=== PATIENT | female | born 1940 | race Caucasian/White ===

== ENCOUNTER 2017-02-12 11:55 | Emergency (ER) | payer OTHER ==
[~2017-02-12] VITALS: Ht 154.9 cm; Wt 81.2 kg
[~2017-02-12 11:55] MED LIST: ASPI-435; CLX/20; GLCSR25; LORA-554 PO; METF750T PO; MULT-506 PO; NAPR1TAB9 PO; VALS160T58 PO
[2017-02-12 11:57] VITALS: TEMP 36.9; Ht 154.9 cm; Wt 81.2 kg
--- NOTE | 2017-02-12 12:52 | DIAGNOSTIC IMAGING REPORT ---
LEFT FOREARM 2 VIEWS CLINICAL HISTORY: Left arm injury. Fall. FINDINGS: AP and crosstable lateral views of the left forearm are obtained. No prior studies are available for comparison at the time of dictation. There is a horizontally oriented fracture through the distal ulnar diaphysis with apex radial angulation and overlying soft tissue edema. No additional fracture is seen. The distal radius appears intact. Mild arthritic change is noted in the wrist. The elbow joint is grossly intact as visualized. IMPRESSION: There is a horizontally oriented and angulated fracture through the distal ulnar shaft with overlying soft tissue edema. Electronically signed by: Toby Wnyne M.D. 02/12/2017 12:51 PM Dictated Date/Time: 02/12/2017 12:49 PM
[2017-02-12] MEDS ORDERED: DIPHTHERIA/TETANUS/PERTUSSIS 0.5 ML SYR/VIAL IM. ONE (13:00)
--- NOTE | 2017-02-12 13:18 | DIAGNOSTIC IMAGING REPORT ---
L TIBIA/FIBULA 2 VIEWS ROUTINE CLINICAL HISTORY: Left lower leg pain status post trauma COMPARISON: Knee x-rays dated 11/26/2014 DISCUSSION: There are mild osteoarthritic changes involving the knee. No acute fractures are visualized. There is calcaneal spurring. IMPRESSION: No fractures identified. Electronically signed by: Srinivas Juares M.D. 02/12/2017 1:17 PM Dictated Date/Time: 02/12/2017 1:16 PM
--- NOTE | 2017-02-12 14:04 | EMERGENCY ROOM VISIT NOTE ---
History First contact with patient: 12:31 Chief Complaint: ARM PAIN Stated Complaint: FELL, LEFT ARM INJURY/PAIN History of Present Illness The patient is a 76 year old female who presents to the Emergency Room via private vehicle accompanied by male with complaints of "fell, left arm injury/ pain". The patient states that earlier today, she was staining wood, and when she got up she went to reach for the door handle, and the door went one way, and the rug that she was standing on with the other way. This caused her to fall towards the wall, and she struck her left arm off of the wall as well as her left knee. She notes a small abrasion to the left ankle. At this time she' ll he complains of left arm pain, and points to the mid shaft of the left forearm as a location of pain that she rates as a 7/10. She denies loss of consciousness. Her tetanus is not up-to-date. Review of Systems A complete 6-point Review of Systems was discussed with the patient, with pertinent positives and negatives listed in the History of Present Illness. All remaining Review of Systems questions can be considered negative unless otherwise specified. Past Medical/Surgical History Medical Problems: (1) Diabetes Family History Diabetes mellitus Social History Smoking Status: Never Smoker Marital Status: Housing Status: lives with family Occupation Status: retired Current/Historical Medications Scheduled Aspirin (Aspirin 81), 81 MG QAM Citalopram (Citalopram Hydrobromide), 20 MG QAM Glipizide (Glipizide ER), 2.5 MG QAM Loratadine (Allergy Relief), 10 MG PO QAM Metformin Hcl (Glucophage Er), 750 MG PO QAM Multivitamin (Multivitamin), 1 TAB PO QAM Valsartan/Hctz (Diovan Hct 160MG/12.5MG), 1 TAB PO QAM Scheduled PRN Naproxen (Aleve), 220 MG PO Q12 PRN for Pain Physical Exam Vital Signs Date Time Temp Pulse Resp B/P (MAP) Pulse Ox O2 Delivery O2 Flow Rate FiO2 02/12/17 14:23 80 20 201/88 95 02/12/17 14:13 83 20 184/126 Room Air 02/12/17 11:57 36.9 92 16 193/94 96 Room Air Physical Exam VITAL SIGNS - Vital signs and nursing notes were reviewed. Stable. Hypertensive. GENERAL -76-year-old female appearing her stated age who is in no acute distress. Communicates well with provider and answers questions appropriately. SKIN - Without rashes. Small abrasion over the left lateral malleolus. Minimal tenderness in this region. HEAD - NC/AT. No garcia signs or raccoons eyes. EYES - PERRL with EOMI bilaterally. Sclera anicteric. No hyphema. EARS - No deformities of external structures noted on gross examination bilaterally. No blood from ear canals. NOSE - Midline and without cyanosis. No epistaxis or purulent drainage noted. MOUTH/OROPHARYNX - Without perioral cyanosis. NECK - Neck with FROM. No C-spine tenderness. EXTREMITIES - No clubbing or peripheral cyanosis. No pretibial edema present. She is neurovascularly intact in the extremity. There is tenderness to palpation overlying the left mid shaft of the forearm, as well as the left lateral malleolus. Other extremities are unremarkable to examination. +5/5 strength noted in UE/LE bilaterally. Medical Decision & Procedures ER Provider Diagnostic Interpretation: LEFT FOREARM 2 VIEWS CLINICAL HISTORY: Left arm injury. Fall. FINDINGS: AP and crosstable lateral views of the left forearm are obtained. No prior studies are available for comparison at the time of dictation. There is a horizontally oriented fracture through the distal ulnar diaphysis with apex radial angulation and overlying soft tissue edema. No additional fracture is seen. The distal radius appears intact. Mild arthritic change is noted in the wrist. The elbow joint is grossly intact as visualized. IMPRESSION: There is a horizontally oriented and angulated fracture through the distal ulnar shaft with overlying soft tissue edema. Electronically signed by: Toby Wynne M.D. 02/12/2017 12:51 PM Dictated Date/Time: 02/12/2017 12:49 PM L TIBIA/FIBULA 2 VIEWS ROUTINE CLINICAL HISTORY: Left lower leg pain status post trauma COMPARISON: Knee x-rays dated 11/26/2014 DISCUSSION: There are mild osteoarthritic changes involving the knee. No acute fractures are visualized. There is calcaneal spurring. IMPRESSION: No fractures identified. Electronically signed by: Srinivas Juares M.D. 02/12/2017 1:17 PM Dictated Date/Time: 02/12/2017 1:16 PM Medications Administered Medications (Trade) Dose Ordered Sig/Max Route Start Time Stop Time Status Last Admin Dose Admin Diphtheria/ Pertussis/Tetanus Vacc (Adacel Inj) 0.5 ml ONCE ONCE IM. 02/12/17 13:00 02/12/17 13:01 DC 02/12/17 13:05 0.5 ML Medical Decision Patient was seen and evaluated as above. She declined pain medication. Radiographs were obtained of the left forearm and left tibia and fibula. Fracture is noted of the left ulna. Unremarkable radiographic assessment of the left lower extremity in regard to fracture. She'll be splint with Ortho- Glass splint, and the case was discussed with the attending physician. She is to follow-up with orthopedics. She appears stable for outpatient management. She unfortunately was unable to take her blood pressure medication this morning secondary to her injury therefore coming here instead. I suspect that her high blood pressure is likely situational secondary to her fracture, as well as not taking the medication this morning. She is aware of the elevated blood pressure , but denies any symptoms that would be concerning with this blood pressure being elevated. She is to follow with her family doctor. She is to resume her medication. She was educated upon management, was given a sling for comfort, had questions answered prior to discharge, and was discharged home in good condition. She was also educated upon worrisome symptoms which to return. The abrasion overlying the left lateral malleolus was cleansed with normal saline, dried with sterile gauze and a sterile bacitracin dressing was applied. In the evaluation and treatment of this patient following differential diagnoses were entertained: Forearm fracture, sprain, left ankle fracture, sprain, contusion, abrasions, ulcers. Impression Primary Impression: Arm pain, left Additional Impression: Ulnar fracture Departure Information Dispostion Home / Self-Care Condition GOOD Referrals Guanakito Burgos M.D. (PCP) Reyes Ovalle MD Patient Instructions My [facility] Additional Instructions You have been treated in the Emergency Department for arm/Wrist Pain. For pain control, you can use the following cect-xmr-hekeomz medicines (if >12 yo): - Regular strength (325mg/tab) Tylenol (acetaminophen) 2 tabs every 4-6 hours as needed. Do not exceed 12 tablets in a 24 hour period. Avoid taking more than 3 grams (3000 mg) of Tylenol per day. This includes any other sources of acetaminophen you may take on a regular basis. If this is a recent injury (<24 hrs), ice can be applied to the area of pain for the first 3 days to help decrease pain and inflammation. You have been provided the number for an Orthopaedic Surgeon. You should call this number as soon as possible to establish a follow-up visit from today's Emergency Department visit. Keep the brace/splint in place until evaluated by Orthopedics. You may wear the arm sling for comfort. Please be cautious to remove this from the sling periodically throughout the day to exercise the shoulder. Return to the Emergency Department if your current symptoms worsen despite treatment course outlined above, or if you develop any of the following symptoms : intractable pain despite aforementioned treatment course or new onset of numbness or tingling of the fingers. Please return with any new/concerning symptoms. Problem Qualifiers
[2017-02-12 14:23] VITALS: BP 201/88; PULSE 80; O2SAT 95
[2017-02-17] MEDS ORDERED: ZTHM250 PO (17:43)
== END 2017-02-12 14:25 | disposition home or self-care (01) ==
LOC: C.EDB 11:57 → C.EDD 14:25
DX: S52.202A Unspecified fracture of shaft of left ulna, initial encounter for closed fracture (principal); S90.512A Abrasion, left ankle, initial encounter; W19.XXXA Unspecified fall, initial encounter; E11.9 Type 2 diabetes mellitus without complications; Z83.3 Family history of diabetes mellitus; Z79.82 Long term (current) use of aspirin; Z79.899 Other long term (current) drug therapy

== ENCOUNTER 2017-02-16 07:21 | Inpatient (IN) | payer OTHER ==
[~2017-02-16] VITALS: Ht 154.9 cm; Wt 83.6 kg
[2017-02-16] VITALS (7 sets, daily range): BP systolic 141–160; BP diastolic 46–78; PULSE 83–89; TEMP 36.8–37; O2SAT 92–98; Ht 154.9 cm; Wt 83.6 kg
[2017-02-16] MEDS ORDERED: SODIUM CHLORIDE 0.9% 1000ML 1,000 ML IV STA (07:35)
[2017-02-16 07:54] LABS: BASO % 0.2 %; BASO ABS # 0.02 K/uL (0-0.2); COMPLETE YES; EOS % 2.2 %; HEMATOCRIT 43.8 % (37-47); IG% 0.4 %; LYMPH % 19.1 %; LYMPH ABS # 1.92 K/uL (1.2-3.4); MEAN CELL VOLUME 92.8 fL (80-100); MEAN CORPUSCULAR HEMOGLOBIN 32.6 pg (25-34); MEAN CORPUSCULAR HGB CONC 35.2 g/dl (32-36); MEAN PLATELET VOLUME 11.6 fL (7.4-10.4); NEUT % 73.1 %; PLATELET COUNT 164 K/uL (130-400); RED BLOOD COUNT 4.72 M/uL (4.2-5.4); WHITE BLOOD COUNT 10.04 K/uL (4.8-10.8)
[2017-02-16 08:05] LABS: PARTIAL THROMBOPLASTIN RATIO 0.9; PROTHROMBIN TIME (PATIENT) 10.8 SECONDS (9.0-12.0)
--- NOTE | 2017-02-16 08:06 | DIAGNOSTIC IMAGING REPORT ---
CHEST ONE VIEW PORTABLE HISTORY: Headache, weakness, fall, palpitations COMPARISON: Chest 04/06/2016. FINDINGS: The lungs are clear. Cardiac silhouette is normal in size. No pleural effusions. No pneumothorax. IMPRESSION: No acute process. Electronically signed by: Robert Blount M.D. 02/16/2017 8:05 AM Dictated Date/Time: 02/16/2017 8:01 AM
[2017-02-16 08:30] LABS: ALKALINE PHOSPHATASE 101 U/L (45-117); ALT/SGPT 43 U/L (12-78); BLOOD UREA NITROGEN 22 mg/dl (7-18); BUN/CREATININE RATIO 21.7 (10-20); CALCIUM 9.8 mg/dl (8.5-10.1); CARBON DIOXIDE 31 mmol/L (21-32); CHLORIDE 97 mmol/L (98-107); CKMB/CK RATIO 1.4 (0-3.0); GLUCOSE 264 mg/dl (70-99)
[2017-02-16 08:34] LABS: POTASSIUM 3.6 mmol/L (3.5-5.1); SODIUM 137 mmol/L (136-145)
[2017-02-16 08:38] LABS: AST/SGOT 20 U/L (15-37); MAGNESIUM 1.5 mg/dl (1.8-2.4)
--- NOTE | 2017-02-16 08:54 | DIAGNOSTIC IMAGING REPORT ---
HEAD WITHOUT CONTRAST (CT) CLINICAL HISTORY: 76 years-old Female presenting with headache. TECHNIQUE: Multidetector CT imaging of the head was performed without the use of intravenous contrast. IV contrast: None. A dose lowering technique was used consistent with the principles of ALARA (as low as reasonably achievable). COMPARISON: 04/06/2016. CT DOSE (mGy.cm): The estimated cumulative dose is 537.48 mGy.cm. FINDINGS: [facility] A[facility] topogram: Unremarkable. Ventricles and sulci normal in size. Periventricular and subcortical white matter hypoattenuation, nonspecific but likely indicative of chronic small vessel ischemic change. Old lacunar infarcts in the basal ganglia, which are more apparent on the current exam. No mass effect or midline shift. No hemorrhage or acute territorial infarct. No extra-axial fluid collection. Paranasal sinuses and mastoid air cells clear. Calvarium intact. IMPRESSION: 1. No acute intracranial pathology. 2. Chronic small vessel ischemic change and suspected old lacunar infarcts in the basal ganglia. Electronically signed by: Supa Vallejo M.D. 02/16/2017 8:52 AM Dictated Date/Time: 02/16/2017 8:50 AM
[2017-02-16 10:10] LABS: URINE APPEARANCE CLEAR (CLEAR); URINE BILIRUBIN NEG (NEG); URINE COLOR YELLOW; URINE NITRITE NEG (NEG); URINE SPECIFIC GRAVITY 1.026 (1.000-1.030); UROBILINOGEN NEG (NEG)
[2017-02-16 10:13] LABS: MANUAL MICROSCOPIC REQUIRED? NO; REVIEW REQ? NO
[2017-02-16] MEDS ORDERED: OPTIRAY 320 IV PRN (10:15)
--- NOTE | 2017-02-16 10:52 | DIAGNOSTIC IMAGING REPORT ---
(CHEST FOR PE) ANGIO WITH CT DOSE: 469.84 mGy.cm HISTORY: 76 years-old Female presents with acute hypoxia. Concern for possible pulmonary embolus. TECHNIQUE: Multiple CTA images of the chest were obtained after the intravenous administration of 82 ml Optiray 320. Coronal and sagittal MIPS were obtained from the axial data set and were submitted for review. A dose lowering technique was utilized adhering to the principles of ALARA. COMPARISON: Chest radiograph of same day. FINDINGS: CTA: Heart is upper limits of normal in size without pericardial effusion. Coronary arterial calcifications are present. No aortic dissection or aneurysm identified. There is moderate atherosclerotic plaquing of the thoracic aorta, notably at the origin of the left subclavian artery. No definite high-grade stenosis identified. The pulmonary arterial tree is well-opacified to the level of the proximal subsegmental branches. Evaluation is somewhat limited secondary to respiratory motion. No filling defects are seen to suggest pulmonary thromboembolic disease. CT CHEST: No dominant thyroid nodule identified. No pathologic adenopathy identified. Linear subsegmental opacities of the bilateral upper and lower lobes most compatible with atelectasis. There is no pneumothorax, pleural effusion or lobar airspace consolidation. There is mild bilateral bronchial wall thickening with areas of was a continuation suggesting some air trapping. No suspicious pulmonary nodules are identified. Imaged upper abdominal structures demonstrate no acute abdomen. Nonspecific 6 mm subcutaneous nodule seen within the central chest cleavages area seen on image 71 of series 4. Bones appear intact. IMPRESSION: 1. No acute aortic pathology or evidence of pulmonary thromboembolic disease. 2. Scattered areas of mosaic attenuation with bronchial wall thickening and subsegmental linear pleural-based opacities are present suggesting mild bronchitis with air trapping and atelectasis. No lobar airspace consolidation to suggest pneumonia. 3. 6 mm subcutaneous nodule of the central chest cleavage area could be further evaluated with mammogram and suggests sebaceous cyst. The above report was generated using voice recognition software. It may contain grammatical, syntax or spelling errors. Electronically signed by: Gage Serrano M.D. 02/16/2017 10:51 AM Dictated Date/Time: 02/16/2017 10:44 AM
[2017-02-16] MEDS ORDERED: CEFTRIAXONE SOD INJ 1 GM ADDVIAL IV STA (11:34)
[2017-02-16] MEDS ORDERED: METFTAB PO (12:28)
[2017-02-16] MEDS ORDERED: CLR10 PO (12:28)
[2017-02-16] MEDS ORDERED: GLUCAGON FOR INJ 1 MG VIAL SQ PRN (12:30)
[2017-02-16] MEDS ORDERED: GLUCOSE 40% GEL 15 GM TUBE PO PRN (12:30)
[2017-02-16] MEDS ORDERED: GLUCOSE 10 TABS/TUBE PO PRN (12:30)
[2017-02-16] MEDS ORDERED: DEXTROSE 50% 50 ML SYR IV PRN (12:30)
[2017-02-16] MEDS ORDERED: ACETAMINOPHEN 325 MG TAB PO PRN (12:30)
[2017-02-16] MEDS ORDERED: ONDANSETRON INJ 2 MG/ML 2 ML VIAL IV PRN (12:30)
[2017-02-16] MEDS: SODIUM CHLORIDE 0.9% 1000ML 1,000 ML IV SCH (13:38)
--- NOTE | 2017-02-16 13:38 | History and Physical ---
History & Physical Date & Time of Service: Feb 16, 2017 at 13:31 Chief Complaint: Bronchitis, Hypoxia Primary Care Physician: Guanakito Burgos M.D. History of Present Illness Source: patient This is a 76yo female with a PMH of DM II, HTN and other medical problems listed below who presents with intermittent facial and head pain over the past 2 weeks. Describes pain as dull and pounding, especially behind both eyes, forehead and bottom teeth. Also endorses URI symptoms such as rhinorrhea, congestion and fatigue. Over the past few days, patient started to experience SOB and "breathing too fast" when walking around the house. Endorses allergies, for which she takes Claritin. Denies any history of asthma, COPD, CHF. Never a smoker. Does not use home oxygen. In ER, patient was hypoxic to 82% on room air. Is not saturating in the high 90s on 3L NC. Denies fever, chills, lightheadedness, sore throat, CP, abd pain, nausea/vomiting, calf pain or LE swelling. Denies any sick contacts. Past Medical/Surgical History Medical Problems: (1) Depression Status: Chronic (2) Diabetes Status: Chronic (3) Diabetic peripheral neuropathy Status: Chronic (4) Hypertension Status: Chronic Family History Diabetes mellitus Social History Smoking Status: Never Smoker Marital Status: Housing status: lives with family Occupational Status: retired Allergies Coded Allergies: Sulfa Antibiotics (Verified Allergy, Mild, RASH, 02/16/17) Home Medications Scheduled Aspirin (Aspirin 81), 81 MG QAM Citalopram (Citalopram Hydrobromide), 20 MG QAM Glipizide (Glipizide ER), 2.5 MG QAM Loratadine (Claritin), 10 MG PO DAILY Metformin Ext Rel (Glucophage Ext Rel), 1 TAB PO DAILY Multivitamin (Multivitamin), 1 TAB PO QAM Valsartan/Hctz (Diovan Hct 160MG/12.5MG), 1 TAB PO QAM Scheduled PRN Naproxen (Aleve), 220 MG PO Q12 PRN for Pain Review of Systems Ten systems reviewed and negative except as noted in the HPI. Physical Exam Vital Signs Date Time Temp Pulse Resp B/P (MAP) Pulse Ox O2 Delivery O2 Flow Rate FiO2 02/16/17 13:26 36.8 86 20 160/78 (105) 96 Nasal Cannula 3.0 02/16/17 12:51 36.9 87 14 166/85 92 02/16/17 12:22 87 14 166/85 92 Nasal Cannula 3.0 02/16/17 12:12 90 02/16/17 11:29 90 14 161/89 93 Nasal Cannula 3.0 02/16/17 10:35 97 18 159/83 96 Nasal Cannula 3.0 02/16/17 09:41 80 16 135/88 94 Nasal Cannula 2.0 02/16/17 08:57 83 16 159/92 96 Nasal Cannula 3.0 02/16/17 08:07 85 20 159/92 94 Nasal Cannula 2.0 02/16/17 07:51 97 02/16/17 07:40 82 Room Air 02/16/17 07:39 96 Room Air 02/16/17 07:39 96 Room Air 02/16/17 07:28 36.9 102 20 168/77 97 Room Air General Appearance: WD/WN, no apparent distress (resting comfortably with NC oxygen in place) Head: normocephalic, atraumatic Eyes: normal inspection, PERRL, sclerae normal ENT: hearing grossly normal, pharynx normal, + nasal congestion Neck: supple, no adenopathy, thyroid normal, trachea midline Respiratory/Chest: chest non-tender, normal breath sounds, no respiratory distress, no accessory muscle use, + pertinent finding (Coarse breath sounds in R lower lobe. Otherwise clear to auscultation) Cardiovascular: regular rate, rhythm, no murmur Abdomen/GI: normal bowel sounds, non tender, soft, no organomegaly Back: normal inspection Extremities/Musculoskelatal: normal inspection, no calf tenderness, normal capillary refill, no pedal edema, + pertinent finding (L arm cast observed ) Neurologic/Psych: no motor/sensory deficits, alert, normal mood/affect, oriented x 3 Skin: normal color, warm/dry, no rash Lymphatic: no adenopathy Diagnostics Laboratory Results Results Past 24 Hours Test 02/16/17 07:42 02/16/17 09:50 Range/Units White Blood Count 10.04 4.8-10.8 K/uL Red Blood Count 4.72 4.2-5.4 M/uL Hemoglobin 15.4 12.0-16.0 g/dL Hematocrit 43.8 37-47 % Mean Corpuscular Volume 92.8 80-100 fL Mean Corpuscular Hemoglobin 32.6 25-34 pg Mean Corpuscular Hemoglobin Concent 35.2 32-36 g/dl Platelet Count 164 130-400 K/uL Mean Platelet Volume 11.6 7.4-10.4 fL Neutrophils (%) (Auto) 73.1 % Lymphocytes (%) (Auto) 19.1 % Monocytes (%) (Auto) 5.0 % Eosinophils (%) (Auto) 2.2 % Basophils (%) (Auto) 0.2 % Neutrophils # (Auto) 7.34 1.4-6.5 K/uL Lymphocytes # (Auto) 1.92 1.2-3.4 K/uL Monocytes # (Auto) 0.50 0.11-0.59 K/uL Eosinophils # (Auto) 0.22 0-0.5 K/uL Basophils # (Auto) 0.02 0-0.2 K/uL RDW Standard Deviation 41.7 36.4-46.3 fL RDW Coefficient of Variation 12.2 11.5-14.5 % Immature Granulocyte % (Auto) 0.4 % Immature Granulocyte # (Auto) 0.04 0.00-0.02 K/uL Prothrombin Time 10.8 9.0-12.0 SECONDS Prothromb Time International Ratio 1.0 0.9-1.1 Activated Partial Thromboplast Time 24.3 21.0-31.0 SECONDS Partial Thromboplastin Ratio 0.9 Sodium Level 137 136-145 mmol/L Potassium Level 3.6 3.5-5.1 mmol/L Chloride Level 97 98-107 mmol/L Carbon Dioxide Level 31 21-32 mmol/L Anion Gap 9.0 3-11 mmol/L Blood Urea Nitrogen 22 7-18 mg/dl Creatinine 1.00 0.60-1.20 mg/dl Est Creatinine Clear Calc Drug Dose 45.3 ml/min Estimated GFR () 62.9 Estimated GFR (Non- 54.3 BUN/Creatinine Ratio 21.7 10-20 Random Glucose 264 70-99 mg/dl Calcium Level 9.8 8.5-10.1 mg/dl Magnesium Level 1.5 1.8-2.4 mg/dl Total Bilirubin 0.5 0.2-1 mg/dl Direct Bilirubin 0.2 0-0.2 mg/dl Aspartate Amino Transf (AST/SGOT) 20 15-37 U/L Alanine Aminotransferase (ALT/SGPT) 43 12-78 U/L Alkaline Phosphatase 101 45-117 U/L Total Creatine Kinase 56 26-192 U/L Creatine Kinase MB 0.8 0.5-3.6 ng/ml Creatine Kinase MB Ratio 1.4 0-3.0 Troponin I < 0.015 0-0.045 ng/ml Pro-B-Type Natriuretic Peptide 128 0-1800 pg/ml Total Protein 7.2 6.4-8.2 gm/dl Albumin 3.6 3.4-5.0 gm/dl Thyroid Stimulating Hormone (TSH) 2.690 0.300-4.500 uIu/ml Urine Color YELLOW Urine Appearance CLEAR CLEAR Urine pH 5.0 4.5-7.5 Urine Specific Twining 1.026 1.000-1.030 Urine Protein NEG NEG Urine Glucose (UA) 3+ NEG Urine Ketones NEG NEG Urine Occult Blood NEG NEG Urine Nitrite NEG NEG Urine Bilirubin NEG NEG Urine Urobilinogen NEG NEG Urine Leukocyte Esterase NEG NEG Microbiology Results 02/16/17 Blood Culture, Ordered Pending 02/16/17 Blood Culture, Ordered Pending Diagnostic Radiology Chest/thorax CTA: IMPRESSION: 1. No acute aortic pathology or evidence of pulmonary thromboembolic disease. 2. Scattered areas of mosaic attenuation with bronchial wall thickening and subsegmental linear pleural-based opacities are present suggesting mild bronchitis with air trapping and atelectasis. No lobar airspace consolidation to suggest pneumonia. 3. 6 mm subcutaneous nodule of the central chest cleavage area could be further evaluated with mammogram and suggests sebaceous cyst. CXR normal Normal EKG Impression Assessment and Plan This is a 76yo female with a PMH of DM II, HTN and other medical problems listed below who presents with intermittent facial and head pain over the past 2 weeks. Hypoxia 2/2 bronchitis/possible PNA: -SOB, recorded to be hypoxic to 82% -Considered PNA but no leukocytosis, no evidence on CXR -CTA is negative for thromboembolism, so not PE -CXR without pleural effusion, BNP is normal. Unlikely CHF -Order echo to assess for wall motion abnormalities, new murmur -CTA with mild bronchitis with air trapping and atelectasis -Treat for community acquired PNA empirically -Blood and sputum cultures pending -Nebs, oxygen, maintenance fluids Hypomagnesemia: -Mg low at 1.5 -Replaced with 2g -Recheck labs in AM DM II: -Hgb a1c of 8.1 (01/08) -Held oral agents -SSI while in-patient -BG checks AC HS HTN: -Continue home dose valsartan-HCTZ Depression: -Continue home dose Celexa DVT Ppx: Lovenox Code status: FULL PCP: Loretta Dispo: Plan to return home once medically stable Attending Physician Addendum I have seen and examined this patient with JUAN DANIEL Galaviz and I agree with her assessment and plan. This is a 76 year well appearing patient whose main complaints on ED presentation was headache with negative head CT found to be hypoxic with CTA negative for pulmonary embolism. CT with findings suggestive of air trapping in patient without significant history of cardiac respiratory history. Possible symptoms of head congestion with hypoxia suggestive of upper respiratory disease. Will empirically treat with antibiotics but likely can be de-escalated base on clinical improvement. F/u cultures including obtaining sputum and flu swab. Send for cardiac echo to rule out valvular disease for hypoxia. Replete electrolytes and manage for history of diabetes. Physical Exam General: no acute distress Head/Neck: normal range of motion, no pain on head flexion Eyes: EOMI Lungs: good air entry, no wheezing or crackles Heart: regular rate, no appreciable murmurs Abdomen: soft, nontender Legs: no edema Level of Care Med/Surg Resuscitation Status FULL RESUSCITATION VTE Prophylaxis VTE Risk Assessment Done? Y/N: Yes Risk Level: Moderate Given or contraindicated: Enoxaparin (Lovenox)SQ
[2017-02-16] MEDS: MAGNESIUM SULFATE 1GM / D5W 1 GM in PREMIXED IN D5W 100 ML IV SCH ×2 (13:39→15:02)
[2017-02-16] MEDS: AZITHROMYCIN 250 MG TAB PO SCH (13:57)
[2017-02-16] MEDS: ALBUT/IPRATROP 3MG/0.5MG NEB 3 ML VIAL INH SCH ×2 (14:21→18:50)
--- NOTE | 2017-02-16 15:12 | EMERGENCY ROOM VISIT NOTE ---
History Report prepared by Anna: Carol Bob Under the Supervision of: Dr. Praful Ortega M.D. First contact with patient: 07:34 Chief Complaint: CARDIAC ASSESSMENT Stated Complaint: SEVERE HEADACHE,SINUS PAIN-WHOLE FACE,GLANDS History of Present Illness The patient is a 76 year old female who presents to the Emergency Room with complaints of intermittent pounding head pain over the past two weeks. She currently rates her discomfort as a 2/10 in severity. The patient states that over the past two weeks she has felt strange, noting that she feels as if something bad is going to happen to her. She states reports a pounding pain in her frontal head that radiates down to her jaw. The patient states that she had this several years ago when she found out that she had to have her gallbladder removed. She reports pain and numbness around her nose and discomfort around her eyes and the back of her teeth. The patient reports a cough that causes chest pain and back pain. She additionally states that she has had a runny nose, stating that she has been blowing her nose often. The patient states that these symptoms have worsened since she had a fall on fracturing her arm. She states that she is allergic to cats, but states that she has two cats for the past several years. The patient denies any history of smoking. Pt denies LOC, fevers, chills, diaphoresis, visual changes, neck pain, breathing difficulties, nausea, vomiting, abdominal pain, melena, hematochezia, urinary symptoms, numbness, weakness, lymphadenopathy, rash, or other complaints. Source of History: patient Onset: past two weeks Position: head Symptom Intensity: 2/10 Quality: other (pounding) Timing: intermittent Associated Symptoms: + cough, + chest pain, + back pain Note: Associated Symptoms: runny nose, discomfort around her eyes and back of teeth, pain and numbness around nose, jaw pain Review of Systems See HPI for pertinent positives and negatives. A total of ten systems were reviewed and were otherwise negative. Past Medical & Surgical Medical Problems: (1) Bronchitis (2) Diabetes (3) Hypoxia Family History Diabetes mellitus Social History Smoking Status: Never Smoker Marital Status: Housing Status: lives with family Occupation Status: retired Current/Historical Medications Scheduled Aspirin (Aspirin 81), 81 MG QAM Citalopram (Citalopram Hydrobromide), 20 MG QAM Glipizide (Glipizide ER), 2.5 MG QAM Loratadine (Claritin), 10 MG PO DAILY Metformin Ext Rel (Glucophage Ext Rel), 1 TAB PO DAILY Multivitamin (Multivitamin), 1 TAB PO QAM Valsartan/Hctz (Diovan Hct 160MG/12.5MG), 1 TAB PO QAM Scheduled PRN Naproxen (Aleve), 220 MG PO Q12 PRN for Pain Allergies Coded Allergies: Sulfa Antibiotics (Verified Allergy, Mild, RASH, 02/16/17) Physical Exam Vital Signs Date Time Temp Pulse Resp B/P (MAP) Pulse Ox O2 Delivery O2 Flow Rate FiO2 02/16/17 12:12 90 02/16/17 11:29 90 14 161/89 93 Nasal Cannula 3.0 02/16/17 10:35 97 18 159/83 96 Nasal Cannula 3.0 02/16/17 09:41 80 16 135/88 94 Nasal Cannula 2.0 02/16/17 08:57 83 16 159/92 96 Nasal Cannula 3.0 02/16/17 08:07 85 20 159/92 94 Nasal Cannula 2.0 02/16/17 07:51 97 02/16/17 07:40 82 Room Air 02/16/17 07:39 96 Room Air 02/16/17 07:39 96 Room Air 02/16/17 07:28 36.9 102 20 168/77 97 Room Air Physical Exam GENERAL: Awake, alert, well-appearing, in no distress HENT: Maxillary tenderness bilaterally, tenderness along the jaw, no tenderness along the temporal artery bilaterally. Oropharynx unremarkable. EYES: Normal conjunctiva. Sclera non-icteric. NECK: Supple. No nuchal rigidity. FROM. No JVD. RESPIRATORY: Clear to auscultation. CARDIAC: Regular rate, normal rhythm. Extremities warm and well perfused. Pulses equal. ABDOMEN: Soft, non-distended. No tenderness to palpation. No rebound or guarding. No masses. RECTAL: Deferred. MUSCULOSKELETAL: Chest examination reveals no tenderness. The back is symmetrical on inspection without obvious abnormality. There is no CVA tenderness to palpation. No joint edema. LOWER EXTREMITIES: Calves are equal size bilaterally and non-tender. No edema. No discoloration. NEURO: Normal sensorium. No sensory or motor deficits noted. SKIN: No rash or jaundice noted. Medical Decision & Procedures ER Provider Diagnostic Interpretation: Radiology results as stated below per my review and radiologist interpretation: CHEST ONE VIEW PORTABLE HISTORY: Headache, weakness, fall, palpitations COMPARISON: Chest 04/06/2016. FINDINGS: The lungs are clear. Cardiac silhouette is normal in size. No pleural effusions. No pneumothorax. IMPRESSION: No acute process. Electronically signed by: Robert Blount M.D. 02/16/2017 8:05 AM Dictated Date/Time: 02/16/2017 8:01 AM HEAD WITHOUT CONTRAST (CT) CLINICAL HISTORY: 76 years-old Female presenting with headache. TECHNIQUE: Multidetector CT imaging of the head was performed without the use of intravenous contrast. IV contrast: None. A dose lowering technique was used consistent with the principles of ALARA (as low as reasonably achievable). COMPARISON: 04/06/2016. CT DOSE (mGy.cm): The estimated cumulative dose is 537.48 mGy.cm. FINDINGS: Insulation Board Head Saw Operator topogram: Unremarkable. Ventricles and sulci normal in size. Periventricular and subcortical white matter hypoattenuation, nonspecific but likely indicative of chronic small vessel ischemic change. Old lacunar infarcts in the basal ganglia, which are more apparent on the current exam. No mass effect or midline shift. No hemorrhage or acute territorial infarct. No extra-axial fluid collection. Paranasal sinuses and mastoid air cells clear. Calvarium intact. IMPRESSION: 1. No acute intracranial pathology. 2. Chronic small vessel ischemic change and suspected old lacunar infarcts in the basal ganglia. Electronically signed by: Supa Vallejo M.D. 02/16/2017 8:52 AM Dictated Date/Time: 02/16/2017 8:50 AM (CHEST FOR PE) ANGIO WITH CT DOSE: 469.84 mGy.cm HISTORY: 76 years-old Female presents with acute hypoxia. Concern for possible pulmonary embolus. TECHNIQUE: Multiple CTA images of the chest were obtained after the intravenous administration of 82 ml Optiray 320. Coronal and sagittal MIPS were obtained from the axial data set and were submitted for review. A dose lowering technique was utilized adhering to the principles of ALARA. COMPARISON: Chest radiograph of same day. FINDINGS: CTA: Heart is upper limits of normal in size without pericardial effusion. Coronary arterial calcifications are present. No aortic dissection or aneurysm identified. There is moderate atherosclerotic plaquing of the thoracic aorta, notably at the origin of the left subclavian artery. No definite high-grade stenosis identified. The pulmonary arterial tree is well-opacified to the level of the proximal subsegmental branches. Evaluation is somewhat limited secondary to respiratory motion. No filling defects are seen to suggest pulmonary thromboembolic disease. CT CHEST: No dominant thyroid nodule identified. No pathologic adenopathy identified. Linear subsegmental opacities of the bilateral upper and lower lobes most compatible with atelectasis. There is no pneumothorax, pleural effusion or lobar airspace consolidation. There is mild bilateral bronchial wall thickening with areas of was a continuation suggesting some air trapping. No suspicious pulmonary nodules are identified. Imaged upper abdominal structures demonstrate no acute abdomen. Nonspecific 6 mm subcutaneous nodule seen within the central chest cleavages area seen on image 71 of series 4. Bones appear intact. IMPRESSION: 1. No acute aortic pathology or evidence of pulmonary thromboembolic disease. 2. Scattered areas of mosaic attenuation with bronchial wall thickening and subsegmental linear pleural-based opacities are present suggesting mild bronchitis with air trapping and atelectasis. No lobar airspace consolidation to suggest pneumonia. 3. 6 mm subcutaneous nodule of the central chest cleavage area could be further evaluated with mammogram and suggests sebaceous cyst. The above report was generated using voice recognition software. It may contain grammatical, syntax or spelling errors. Electronically signed by: Gage Serrano M.D. 02/16/2017 10:51 AM Dictated Date/Time: 02/16/2017 10:44 AM Laboratory Results 02/16/17 07:42 Red Blood Count 4.72, Mean Corpuscular Volume 92.8, Mean Corpuscular Hemoglobin 32.6, Mean Corpuscular Hemoglobin Concent 35.2, Mean Platelet Volume 11.6, Neutrophils (%) (Auto) 73.1, Lymphocytes (%) (Auto) 19.1, Monocytes (%) (Auto) 5.0, Eosinophils (%) (Auto) 2.2, Basophils (%) (Auto) 0.2, Neutrophils # (Auto) 7.34, Lymphocytes # (Auto) 1.92, Monocytes # (Auto) 0.50, Eosinophils # (Auto) 0.22, Basophils # (Auto) 0.02 02/16/17 07:42 Test 02/16/17 07:42 02/16/17 09:50 White Blood Count 10.04 K/uL (4.8-10.8) Red Blood Count 4.72 M/uL (4.2-5.4) Hemoglobin 15.4 g/dL (12.0-16.0) Hematocrit 43.8 % (37-47) Mean Corpuscular Volume 92.8 fL (80-100) Mean Corpuscular Hemoglobin 32.6 pg (25-34) Mean Corpuscular Hemoglobin Concent 35.2 g/dl (32-36) Platelet Count 164 K/uL (130-400) Mean Platelet Volume 11.6 fL (7.4-10.4) Neutrophils (%) (Auto) 73.1 % Lymphocytes (%) (Auto) 19.1 % Monocytes (%) (Auto) 5.0 % Eosinophils (%) (Auto) 2.2 % Basophils (%) (Auto) 0.2 % Neutrophils # (Auto) 7.34 K/uL (1.4-6.5) Lymphocytes # (Auto) 1.92 K/uL (1.2-3.4) Monocytes # (Auto) 0.50 K/uL (0.11-0.59) Eosinophils # (Auto) 0.22 K/uL (0-0.5) Basophils # (Auto) 0.02 K/uL (0-0.2) RDW Standard Deviation 41.7 fL (36.4-46.3) RDW Coefficient of Variation 12.2 % (11.5-14.5) Immature Granulocyte % (Auto) 0.4 % Immature Granulocyte # (Auto) 0.04 K/uL (0.00-0.02) Prothrombin Time 10.8 SECONDS (9.0-12.0) Prothromb Time International Ratio 1.0 (0.9-1.1) Activated Partial Thromboplast Time 24.3 SECONDS (21.0-31.0) Partial Thromboplastin Ratio 0.9 Anion Gap 9.0 mmol/L (3-11) Est Creatinine Clear Calc Drug Dose 45.3 ml/min Estimated GFR () 62.9 Estimated GFR (Non- 54.3 BUN/Creatinine Ratio 21.7 (10-20) Calcium Level 9.8 mg/dl (8.5-10.1) Magnesium Level 1.5 mg/dl (1.8-2.4) Total Bilirubin 0.5 mg/dl (0.2-1) Direct Bilirubin 0.2 mg/dl (0-0.2) Aspartate Amino Transf (AST/SGOT) 20 U/L (15-37) Alanine Aminotransferase (ALT/SGPT) 43 U/L (12-78) Alkaline Phosphatase 101 U/L (45-117) Total Creatine Kinase 56 U/L (26-192) Creatine Kinase MB 0.8 ng/ml (0.5-3.6) Creatine Kinase MB Ratio 1.4 (0-3.0) Troponin I < 0.015 ng/ml (0-0.045) Pro-B-Type Natriuretic Peptide 128 pg/ml (0-1800) Total Protein 7.2 gm/dl (6.4-8.2) Albumin 3.6 gm/dl (3.4-5.0) Thyroid Stimulating Hormone (TSH) 2.690 uIu/ml (0.300-4.500) Urine Color YELLOW Urine Appearance CLEAR (CLEAR) Urine pH 5.0 (4.5-7.5) Urine Specific Blossom 1.026 (1.000-1.030) Urine Protein NEG (NEG) Urine Glucose (UA) 3+ (NEG) Urine Ketones NEG (NEG) Urine Occult Blood NEG (NEG) Urine Nitrite NEG (NEG) Urine Bilirubin NEG (NEG) Urine Urobilinogen NEG (NEG) Urine Leukocyte Esterase NEG (NEG) Laboratory results reviewed by me Medications Administered Medications (Trade) Dose Ordered Sig/Max Route Start Time Stop Time Status Last Admin Dose Admin Sodium Chloride 1,000 ml @ 125 mls/hr Q8H STAT IV 02/16/17 07:35 02/16/17 13:26 DC 02/16/17 08:06 125 MLS/HR Ceftriaxone Sodium (Rocephin Inj) 1 gm NOW STAT IV 02/16/17 11:34 02/16/17 11:35 DC 02/16/17 11:48 1 GM ECG Indication: chest pain Rate (beats per minute): 94 Rhythm: normal sinus Findings: no acute ischemic change, no ectopy ED Course 0735: Ordered Sodium Chloride 1000 ml @ 125 mls/hr IV. 0742: The patient was evaluated in room A3. A complete history and physical exam was performed by the medical student. 0831: The patient was evaluated in room A3. A complete history and physical exam was performed. 1051: I reevaluated the patient and she is resting. 1134: Ordered Rocephin Inj 1 gm IV. 1137: I discussed the patients case with Coco Neal PA-C. She is going to evaluate the patient for further treatment. 1140: I reevaluated the patient and she is doing well. I discussed the exam findings with her and I discussed the treatment plan. She verbalized complete understanding and agreement. She is going to be evaluated for further treatment. Medical Decision Triage Nursing notes reviewed. The patient's presentation and history were concerning for malaise and congestion. Etiologies such as metabolic, infection, hypo/hyperglycemia, electrolyte abnormalities, cardiac sources, intracerebral event, toxicologic, neurologic, as well as others were entertained. The patient was evaluated. She was hydrated. Physical examination was performed. She was nonfocal. She was just generally washed out. ECG was nonischemic. Chest x-ray performed and was unremarkable. The patient's blood work was unremarkable as well. The patient was noted to have hypoxia. The exact etiology is not obvious. CT scan of the head did not reveal any obvious pathology. CT PE study was performed due to the hypoxia and malaise and this showed some atelectasis air trapping and bronchitis-like issues. The patient does not she has had increased cough. She was given a dose of IV Rocephin. Consultation was made with internal medicine. The patient and family were updated and educated. I discussed further evaluation and management in the hospital and they were in agreement. I discussed the case with the [facility] hospitalist service. The patient was evaluated in the Emergency Room for further management. Medication Reconcilliation Current Medication List: was personally reviewed by me Blood Pressure Screening Patient's blood pressure: Elevated blood pressure Further evaluation by the hospitalist. Consults Time Called: 1130 Consulting Physician: Coco Neal PA-C Returned Call: 1137 I discussed the patients case with Coco Neal PA-C. She is going to evaluate the patient for further treatment. Impression Primary Impression: Hypoxia Additional Impressions: Bronchitis Malaise Scribe Attestation The scribe's documentation has been prepared under my direction and personally reviewed by me in its entirety. I confirm that the note above accurately reflects all work, treatment, procedures, and medical decision making performed by me. Departure Information Dispostion Being Evaluated By Hospitalist Guanakito Garcia M.D. (PCP) Problem Qualifiers
[2017-02-16] MEDS ORDERED: INFLUENZA ADMINISTRATION CHARGE ONE (18:00)
[2017-02-16] MEDS ORDERED: INFLUENZA VACCINE HIGH DOSE 65+ 0.5 ML SYR IM. ONE (18:00)
[2017-02-16] MEDS: INSULIN ASPART 100 UNITS/ML 3 ML PEN SC SCH ×2 (18:56→21:00)
[2017-02-16] MEDS ORDERED: ENOXAPARIN 40 MG/0.4 ML SYR SC SCH (21:00)
[2017-02-17] VITALS (8 sets, daily range): BP systolic 148–175; BP diastolic 74–86; PULSE 59–87; TEMP 36.5–36.8; O2SAT 92–98
[2017-02-17] MEDS: SODIUM CHLORIDE 0.9% 1000ML 1,000 ML IV SCH (01:36)
[2017-02-17 06:28] LABS: HEMATOCRIT 45.5 % (37-47); MEAN CORPUSCULAR HEMOGLOBIN 30.8 pg (25-34); MEAN CORPUSCULAR HGB CONC 32.7 g/dl (32-36); MEAN PLATELET VOLUME 11.5 fL (7.4-10.4); PLATELET COUNT 162 K/uL (130-400); RED BLOOD COUNT 4.84 M/uL (4.2-5.4); WHITE BLOOD COUNT 8.07 K/uL (4.8-10.8)
[2017-02-17 07:07] LABS: CALCIUM 9.1 mg/dl (8.5-10.1); CREATININE 0.8 mg/dl (0.60-1.20); MAGNESIUM 1.7 mg/dl (1.8-2.4); POTASSIUM 3.5 mmol/L (3.5-5.1)
[2017-02-17] MEDS: ALBUT/IPRATROP 3MG/0.5MG NEB 3 ML VIAL INH SCH ×2 (07:15→14:44)
[2017-02-17] MEDS: AZITHROMYCIN 250 MG TAB PO SCH (07:54)
[2017-02-17] MEDS ORDERED: PERFLUTREN LIPID MICROSPHERE (DEFINITY) IV ONE (08:38)
[2017-02-17] MEDS: INSULIN ASPART 100 UNITS/ML 3 ML PEN SC SCH ×2 (08:48→12:49)
[2017-02-17] MEDS ORDERED: HYDROCHLOROTHIAZIDE 25 MG TAB PO SCH (09:00)
[2017-02-17] MEDS ORDERED: ASPIRIN 81 MG ECTAB PO SCH (09:00)
[2017-02-17] MEDS ORDERED: METFORMIN HCL 500 MG TABCR PO SCH (09:00)
[2017-02-17] MEDS ORDERED: VALSARTAN 80 MG TAB PO SCH (09:00)
[2017-02-17] MEDS ORDERED: CITALOPRAM 20 MG TAB PO SCH (09:00)
[2017-02-17] MEDS ORDERED: LORATADINE 10 MG TAB PO SCH (09:00)
[2017-02-17] MEDS ORDERED: MAGNESIUM SULFATE 1GM / D5W 1 GM in PREMIXED IN D5W 100 ML IV SCH (09:30)
[2017-02-17] MEDS ORDERED: CEFTRIAXONE SOD INJ 1 GM in DEXTROSE 5% ADD-VANTAGE 50ML 50 ML IV SCH (12:00)
--- NOTE | 2017-02-17 16:26 | Progress Note ---
Medicine Progress Note Date & Time of Visit: Feb 17, 2017 at 16:08. Subjective Pt was seen and examined Sitting in bed with friend at bed sign. Pt said that she feels much better today she said that the pain at the back of her head and around her eyes and forehead improved she has been on RA saturates well since yesterday Denies any chest pain, palpitation, dizziness and SOB Objective Last 8 Hrs Date Time Temp Pulse Resp B/P (MAP) Pulse Ox O2 Delivery O2 Flow Rate FiO2 02/17/17 15:00 36.7 85 16 167/75 (105) 98 Room Air 02/17/17 14:44 79 16 93 Room Air 02/17/17 11:37 36.8 87 16 168/80 (109) 92 Physical Exam: General- No acute distress Head- atraumatic Eyes- PERRL, EOMI ENT- oropharynx clear Neck- supple, no JVD Lungs- No wheezing, no crackles Heart- regular rhythm Abdomen- normal bowel sounds, soft Extremities- no calf tenderness Neuro- alert, oriented x 3; PERRL, EOMI Skin- warm & dry Laboratory Results: Last 24 Hours Test 02/16/17 16:40 02/16/17 20:40 02/17/17 06:02 02/17/17 08:41 Bedside Glucose 239 mg/dl 88 mg/dl 232 mg/dl White Blood Count 8.07 K/uL Red Blood Count 4.84 M/uL Hemoglobin 14.9 g/dL Hematocrit 45.5 % Mean Corpuscular Volume 94.0 fL Mean Corpuscular Hemoglobin 30.8 pg Mean Corpuscular Hemoglobin Concent 32.7 g/dl RDW Standard Deviation 42.2 fL RDW Coefficient of Variation 12.4 % Platelet Count 162 K/uL Mean Platelet Volume 11.5 fL Sodium Level 138 mmol/L Potassium Level 3.5 mmol/L Chloride Level 98 mmol/L Carbon Dioxide Level 33 mmol/L Anion Gap 7.0 mmol/L Blood Urea Nitrogen 14 mg/dl Creatinine 0.80 mg/dl Est Creatinine Clear Calc Drug Dose 57.7 ml/min Estimated GFR () 82.4 Estimated GFR (Non- 71.1 BUN/Creatinine Ratio 18.0 Random Glucose 194 mg/dl Calcium Level 9.1 mg/dl Magnesium Level 1.7 mg/dl Test 02/17/17 11:23 02/17/17 13:25 Bedside Glucose 201 mg/dl Influenza Type A Antigen Neg for Influ A Influenza Type B Antigen Neg for Influ B Assessment & Plan Hypoxia Mostly related to bronchitis -2 saturation on admission was 82% -Considered PNA but no leukocytosis, no evidence on CXR -CXR was negative -CTA chest showed no evidence for PE. Scattered areas of mosaic attenuation with bronchial wall thickening and subsegmental linear pleural-based opacities are present suggesting mild bronchitis with air trapping and atelectasis. - No leukocytosis, afebrile - Saturated well on RA - D/C Rocephin - will continue PO Zithromax for the bronchitis - Will schedule follow up with PCP on Thursday Echo Showed * Ejection Fraction = 60-65%. * The left ventricular wall motion is normal. * Grade I diastolic dysfunction, (abnormal relaxation pattern). * No significant valvular pathology. Hypomagnesemia: -Mg 1.7 -Mg Replaced - Continue monitor mg DM II: -Hgb a1c of 8.1 (01/08) -Held oral agents -SSI while in-patient - Counseling pt to follow a healthy DM HTN: -Continue home dose valsartan-HCTZ Stable Depression: -Continue home dose Celexa DVT Ppx: Lovenox Code status: FULL Disposition Follow up with Dr. Lindsey ( Dr. Acosta's partner) on 02/20 @ 12:45 pm Current Inpatient Medications: Current Inpatient Medications Medications (Trade) Dose Ordered Sig/Max Route Start Time Stop Time Status Last Admin Dose Admin Ioversol (Optiray 320) 100 ml UD PRN IV 02/16/17 10:15 02/20/17 10:14 Enoxaparin Sodium (Lovenox Inj) 40 mg Q24H SC 02/16/17 21:00 03/18/17 12:29 02/16/17 21:13 40 MG Acetaminophen (Tylenol Tab) 650 mg Q4H PRN PO 02/16/17 12:30 03/18/17 12:29 Ondansetron HCl (Zofran Inj) 4 mg Q6H PRN IV 02/16/17 12:30 03/18/17 12:29 Insulin Aspart (novoLOG ASPART) SLIDING SCALE If C... ACHS SC 02/16/17 16:30 03/18/17 16:29 02/17/17 12:49 4 UNITS Glucose (Glucose 40% Gel) 15-30 GRAMS 15 GRAMS... UD PRN PO 02/16/17 12:30 03/18/17 12:29 Glucose (Glucose Chew Tab) 4-8 Tablets 4 Tabl... UD PRN PO 02/16/17 12:30 03/18/17 12:29 Dextrose (Dextrose 50% 50ML Syringe) 25-50ML OF 50% DW IV FOR... UD PRN IV 02/16/17 12:30 03/18/17 12:29 Glucagon (Glucagon Inj) 1 mg UD PRN SQ 02/16/17 12:30 03/18/17 12:29 Aspirin (Ecotrin Tab) 81 mg QAM PO 02/17/17 09:00 03/19/17 08:59 02/17/17 07:54 81 MG Citalopram Hydrobromide (celeXA TAB) 20 mg QAM PO 02/17/17 09:00 03/19/17 08:59 02/17/17 07:54 20 MG Loratadine (Claritin Tab) 10 mg DAILY PO 02/17/17 09:00 03/19/17 08:59 02/17/17 07:54 10 MG Valsartan (Diovan Tab) 160 mg QAM PO 02/17/17 09:00 03/19/17 08:59 02/17/17 07:55 160 MG Miscellaneous Information (Order Awaiting Action) 1 ea QS N/A 02/16/17 16:00 03/18/17 15:59 Sodium Chloride 1,000 ml @ 75 mls/hr [id number] IV 02/16/17 12:45 03/18/17 12:44 02/17/17 01:36 75 MLS/HR Albuterol/ Ipratropium (Duoneb) 3 ml [id number] INH 02/16/17 15:00 03/18/17 14:59 02/17/17 14:44 3 ML Ceftriaxone Sodium 1 gm/ Dextrose 50 ml @ 100 mls/hr DAILY@1200 IV 02/17/17 12:00 02/22/17 12:29 02/17/17 11:34 100 MLS/HR Azithromycin (Zithromax Tab) 500 mg DAILY PO 02/16/17 14:00 02/23/17 13:59 02/17/17 07:54 500 MG Hydrochlorothiazide (Hydrochlorothiazide Tab) 12.5 mg QAM PO 02/17/17 09:00 03/19/17 08:59 02/17/17 07:55 12.5 MG
--- NOTE | 2017-02-17 17:15 | ECHOCARDIOGRAM REPORT ---
*NOTICE TO RECEIVING DEMOCRAT AGENCY This information is strictly Confidential and protected under [place] law. [place] law prohibits you from making any further disclosure of this information unless further disclosure is expressly permitted by the written consent of the person to whom it pertains or is authorized by law. A general authorization for the release of medical or other information is not sufficient for this purpose. Hospital accepts no responsibility if the information is made available to any other person, INCLUDING THE PATIENT. Interpretation Summary * Name: ASHKAN AGUDELO Study Date: 02/17/2017 07:05 AM BP: 175/86 mmHg * Patient Location: [facility]\S\N287\S\1 HR: 80 * : 1940 (M/d/yyy) Gender: Female Height: 61 in * Age: 76 yrs Ethnicity: CA Weight: 177 lb * Ordering Physician: Violeta Galaviz * Referring Physician: Self, Referred * Performed By: Tory Traore RDCS * * Reason For Study: Shortness of breath * BSA: 1.8 m2 * The study was technically adequate. * There is no comparison study available. * -- Conclusions -- * Ejection Fraction = 60-65%. * The left ventricular wall motion is normal. * Grade I diastolic dysfunction, (abnormal relaxation pattern). * No significant valvular pathology. Procedure Details * A complete two-dimensional transthoracic echocardiogram was performed (2D, M-mode, Doppler and color flow Doppler). * A contrast injection of Definity was performed to improve assessment of LV function. * Contrast was injected into an intravenous site in the right arm. * One vial of Definity ultrasound contrast was diluted in normal saline to a total volume of 10 ml. A total of '2' ml of solution was administered during imaging. * Lot # [id number] of Definity utilized for procedure. * Expiration date MAR 11. * The attending nurse who injected the contrast agent was Liz Wilson RN. Left Ventricle * The left ventricle is normal in size. * There is normal left ventricular wall thickness. * Ejection Fraction = 60-65%. * Left ventricular systolic function is normal. * The left ventricular wall motion is normal. Right Ventricle * The right ventricle is normal size. * The right ventricular systolic function is normal as assessed by tricuspid annular plane systolic excursion (TAPSE) (normal >1.5 cm). Atria * The left atrial size is normal. * Right atrial size is normal. * There is no evidence of atrial septal defect, but resolution does not allow assessment for a patent foramen ovale. Mitral Valve * There is moderate mitral annular calcification. * There is no mitral valve stenosis. * Significant mitral regurgitation is absent. Tricuspid Valve * The tricuspid valve is normal. * There is no tricuspid stenosis. * Significant tricuspid regurgitation is absent. Aortic Valve * The aortic valve is not well visualized. * The aortic valve opens well. * Aortic stenosis is absent. * There is no significant aortic regurgitation. Pulmonic Valve * The pulmonary valve is not well seen, but the Doppler examination is normal without significant regurgitation or stenosis. Great Vessels * The aortic root is normal size. Pericardium/Pleural * There is no pericardial effusion. Great Vessels * Normal inferior vena cava diameter and respiratory variation suggests normal central venous pressure. Left Ventricular Diastolic Function * Grade I diastolic dysfunction, (abnormal relaxation pattern). MMode 2D Measurements and Calculations IVSd 1.2 cm LVIDd 2.6 cm LVIDs 1.8 cm LVPWd 1.1 cm IVS/LVPW 1.1 FS 31.1 % EDV(Teich) 25.0 ml ESV(Teich) 9.7 ml EF(Teich) 61.0 % EDV(cubed) 17.9 ml ESV(cubed) 5.8 ml EF(cubed) 67.3 % LV mass(C)d 87.4 grams LV mass(C)dI 48.7 grams/m\S\2 CO(Teich) 1.4 l/min CI(Teich) 0.78 l/min/m\S\2 SV(Teich) 15.2 ml SI(Teich) 8.5 ml/m\S\2 CO(cubed) 1.1 l/min CI(cubed) 0.62 l/min/m\S\2 SV(cubed) 12.1 ml SI(cubed) 6.7 ml/m\S\2 Ao root diam 2.7 cm Ao root area 5.8 cm\S\2 ACS 1.6 cm LA dimension 2.2 cm asc Aorta Diam 3.1 cm LA/Ao 0.81 LVOT diam 2.0 cm LVOT area 3.0 cm\S\2 LVAd ap4 23.5 cm\S\2 LVLd ap4 6.7 cm EDV(MOD-sp4) 66.9 ml LVAs ap4 11.5 cm\S\2 LVLs ap4 5.2 cm ESV(MOD-sp4) 22.3 ml EF(MOD-sp4) 66.7 % LVAd ap2 18.3 cm\S\2 LVLd ap2 6.0 cm EDV(MOD-sp2) 45.0 ml LVAs ap2 10.9 cm\S\2 LVLs ap2 5.2 cm ESV(MOD-sp2) 19.1 ml EF(MOD-sp2) 57.6 % CO(MOD-sp4) 4.1 l/min CI(MOD-sp4) 2.3 l/min/m\S\2 SV(MOD-sp4) 44.6 ml SI(MOD-sp4) 24.9 ml/m\S\2 CO(MOD-sp2) 2.4 l/min CI(MOD-sp2) 1.3 l/min/m\S\2 SV(MOD-sp2) 25.9 ml SI(MOD-sp2) 14.4 ml/m\S\2 Doppler Measurements and Calculations MV E max natalie 75.7 cm/sec MV A max natalie 107.2 cm/sec MV E/A 0.71 MV dec time 0.26 sec Ao V2 max 102.5 cm/sec Ao max PG 4.2 mmHg Ao max PG (full) 1.1 mmHg YOANA(V,A) 2.6 cm\S\2 YOANA(V,D) 2.6 cm\S\2 LV V1 max PG 3.2 mmHg LV V1 max 88.8 cm/sec PA V2 max 82.8 cm/sec PA max PG 2.7 mmHg PA acc slope 616.6 cm/sec\S\2 PA acc time 0.07 sec PI max natalie 184.6 cm/sec PI max PG 13.6 mmHg PI dec slope 195.5 cm/sec\S\2 PI P1/2t 276.6 msec TR max natalie 202.0 cm/sec PA pr(Accel) 45.7 mmHg
[2017-02-17] MEDS ORDERED: ZTHM250 PO (17:43)
--- NOTE | 2017-02-17 17:47 | Discharge Instructions ---
Discharge Instructions Date of Service Feb 17, 2017. Admission Reason for Admission: Bronchitis, Hypoxia Discharge Discharge Diagnosis / Problem: Bronchitis associated with hypoxia, Diabetes Discharge Goals Goal(s): Decrease discomfort, Increase independence, Improve disease control Activity Recommendations Activity Limitations: resume your previous activity (as tolerated) . Instructions / Follow-Up Instructions / Follow-Up Follow up with Dr. Lindsey ( Dr. Acosta's partner) on 02/20 @ 12:45 pm Follow up a healthy diabetes diet with low carb Limited concentrated sweet Complete antibiotic course Current Hospital Diet Patient's current hospital diet: Diabetes Type 2 Diet, Low Sodium Diet (2gm Na) Discharge Diet Recommended Diet: Low Sodium Diet (2gm Na), Diabetes Type 2 Diet Pending Studies Studies pending at discharge: yes List of pending studies: blood culture Medical Emergencies . Who to Call and When: Medical Emergencies: If at any time you feel your situation is an emergency, please call 911 immediately. . Non-Emergent Contact Non-Emergency issues call your: Primary Care Provider Call Non-Emergent contact if: you have any medication questions . . "Provider Documentation" section prepared by Rick Ochoa. . VTE Core Measure Inpt VTE Proph given/why not?: Enoxaparin (Lovenox)SQ
--- NOTE | 2017-02-19 20:22 | Discharge Summary ---
Discharge Summary Date of Service Feb 19, 2017. Discharge Summary Admission Date: Feb 16, 2017 at 12:21 Discharge Date: Feb 17, 2017 Discharge Disposition: Home Principal Diagnosis: Bronchitis associated with hypoxia Secondary Diagnoses/Problems: DM II HTN Depression Hypomagnesemia Procedures: [~ rep ct add3]] (CHEST FOR PE) ANGIO WITH CT DOSE: 469.84 mGy.cm HISTORY: 76 years-old Female presents with acute hypoxia. Concern for possible pulmonary embolus. TECHNIQUE: Multiple CTA images of the chest were obtained after the intravenous administration of 82 ml Optiray 320. Coronal and sagittal MIPS were obtained from the axial data set and were submitted for review. A dose lowering technique was utilized adhering to the principles of ALARA. COMPARISON: Chest radiograph of same day. FINDINGS: CTA: Heart is upper limits of normal in size without pericardial effusion. Coronary arterial calcifications are present. No aortic dissection or aneurysm identified. There is moderate atherosclerotic plaquing of the thoracic aorta, notably at the origin of the left subclavian artery. No definite high-grade stenosis identified. The pulmonary arterial tree is well-opacified to the level of the proximal subsegmental branches. Evaluation is somewhat limited secondary to respiratory motion. No filling defects are seen to suggest pulmonary thromboembolic disease. CT CHEST: No dominant thyroid nodule identified. No pathologic adenopathy identified. Linear subsegmental opacities of the bilateral upper and lower lobes most compatible with atelectasis. There is no pneumothorax, pleural effusion or lobar airspace consolidation. There is mild bilateral bronchial wall thickening with areas of was a continuation suggesting some air trapping. No suspicious pulmonary nodules are identified. Imaged upper abdominal structures demonstrate no acute abdomen. Nonspecific 6 mm subcutaneous nodule seen within the central chest cleavages area seen on image 71 of series 4. Bones appear intact. IMPRESSION: 1. No acute aortic pathology or evidence of pulmonary thromboembolic disease. 2. Scattered areas of mosaic attenuation with bronchial wall thickening and subsegmental linear pleural-based opacities are present suggesting mild bronchitis with air trapping and atelectasis. No lobar airspace consolidation to suggest pneumonia. 3. 6 mm subcutaneous nodule of the central chest cleavage area could be further evaluated with mammogram and suggests sebaceous cyst. The above report was generated using voice recognition software. It may contain grammatical, syntax or spelling errors. Electronically signed by: Gage Serrano M.D. 02/16/2017 10:51 AM Dictated Date/Time: 02/16/2017 10:44 AM HEAD WITHOUT CONTRAST (CT) CLINICAL HISTORY: 76 years-old Female presenting with headache. TECHNIQUE: Multidetector CT imaging of the head was performed without the use of intravenous contrast. IV contrast: None. A dose lowering technique was used consistent with the principles of ALARA (as low as reasonably achievable). COMPARISON: 04/06/2016. CT DOSE (mGy.cm): The estimated cumulative dose is 537.48 mGy.cm. FINDINGS: [employer] topogram: Unremarkable. Ventricles and sulci normal in size. Periventricular and subcortical white matter hypoattenuation, nonspecific but likely indicative of chronic small vessel ischemic change. Old lacunar infarcts in the basal ganglia, which are more apparent on the current exam. No mass effect or midline shift. No hemorrhage or acute territorial infarct. No extra-axial fluid collection. Paranasal sinuses and mastoid air cells clear. Calvarium intact. IMPRESSION: 1. No acute intracranial pathology. 2. Chronic small vessel ischemic change and suspected old lacunar infarcts in the basal ganglia. Electronically signed by: Supa Vallejo M.D. 02/16/2017 8:52 AM Dictated Date/Time: 02/16/2017 8:50 AM [~ rep ct add3]] CHEST ONE VIEW PORTABLE HISTORY: Headache, weakness, fall, palpitations COMPARISON: Chest 04/06/2016. FINDINGS: The lungs are clear. Cardiac silhouette is normal in size. No pleural effusions. No pneumothorax. IMPRESSION: No acute process. Electronically signed by: Robert Blount M.D. 02/16/2017 8:05 AM Dictated Date/Time: 02/16/2017 8:01 AM Interpretation Summary * Name: ASHKAN AGUDELO Study Date: 02/17/2017 07:05 AM BP: 175/86 mmHg * Patient Location: [facility]\\S\\N287\\S\\1 HR: 80 * : 1940 (M/d/yyyy) Gender: Female Height: 61 in * Age: 76 yrs Ethnicity: [place] Weight: 177 lb * Ordering Physician: Violeta Galaviz * Referring Physician: Self, Referred * Performed By: Tory Traore RDCS * * Reason For Study: Shortness of breath * BSA: 1.8 m2 * The study was technically adequate. * There is no comparison study available. * -- Conclusions -- * Ejection Fraction = 60-65%. * The left ventricular wall motion is normal. * Grade I diastolic dysfunction, (abnormal relaxation pattern). * No significant valvular pathology. Procedure Details * A complete two-dimensional transthoracic echocardiogram was performed (2D, M- mode, Doppler and color flow Doppler). * A contrast injection of Definity was performed to improve assessment of LV function. * Contrast was injected into an intravenous site in the right arm. * One vial of Definity ultrasound contrast was diluted in normal saline to a total volume of 10 ml. A total of '2' ml of solution was administered during imaging. * Lot # [id number] of Definity utilized for procedure. * Expiration date MAR 11. * The attending nurse who injected the contrast agent was Liz Wilson RN. Left Ventricle * The left ventricle is normal in size. * There is normal left ventricular wall thickness. * Ejection Fraction = 60-65%. * Left ventricular systolic function is normal. * The left ventricular wall motion is normal. Right Ventricle * The right ventricle is normal size. * The right ventricular systolic function is normal as assessed by tricuspid annular plane systolic excursion (TAPSE) (normal >1.5 cm). Atria * The left atrial size is normal. * Right atrial size is normal. * There is no evidence of atrial septal defect, but resolution does not allow assessment for a patent foramen ovale. Mitral Valve * There is moderate mitral annular calcification. * There is no mitral valve stenosis. * Significant mitral regurgitation is absent. Tricuspid Valve * The tricuspid valve is normal. * There is no tricuspid stenosis. * Significant tricuspid regurgitation is absent. Aortic Valve * The aortic valve is not well visualized. * The aortic valve opens well. * Aortic stenosis is absent. * There is no significant aortic regurgitation. Pulmonic Valve * The pulmonary valve is not well seen, but the Doppler examination is normal without significant regurgitation or stenosis. Great Vessels * The aortic root is normal size. Pericardium/Pleural * There is no pericardial effusion. Great Vessels * Normal inferior vena cava diameter and respiratory variation suggests normal central venous pressure. Left Ventricular Diastolic Function * Grade I diastolic dysfunction, (abnormal relaxation pattern). Medication Reconciliation New Medications: Azithromycin (Azithromycin) 250 Mg Tab 500 MG PO DAILY for 3 Days, #6 TAB Continued Medications: Aspirin (Aspirin 81) 81 Mg Tab 81 MG QAM Citalopram (Citalopram Hydrobromide) 20 Mg Tab 20 MG QAM Glipizide (Glipizide ER) 2.5 Mg Tabcr 2.5 MG QAM Loratadine (Claritin) 10 Mg Tab 10 MG PO DAILY, TAB Metformin Ext Rel (Glucophage Ext Rel) 500 Mg Tab 1 TAB PO DAILY for 90 Days, #90 TAB 3 Refills Multivitamin (Multivitamin) Tab 1 TAB PO QAM, TAB Naproxen (Aleve) 220 Mg Tab 220 MG PO Q12 PRN for Pain, TAB Valsartan/Hctz (Diovan Hct 160MG/12.5MG) 1 Tab Tab 1 TAB PO QAM Admission Information HPI (per Admitting provider): This is a 76yo female with a PMH of DM II, HTN and other medical problems listed below who presents with intermittent facial and head pain over the past 2 weeks. Describes pain as dull and pounding, especially behind both eyes, forehead and bottom teeth. Also endorses URI symptoms such as rhinorrhea, congestion and fatigue. Over the past few days, patient started to experience SOB and "breathing too fast" when walking around the house. Endorses allergies, for which she takes Claritin. Denies any history of asthma, COPD, CHF. Never a smoker. Does not use home oxygen. In ER, patient was hypoxic to 82% on room air. Is not saturating in the high 90s on 3L NC. Denies fever, chills, lightheadedness, sore throat, CP, abd pain, nausea/vomiting, calf pain or LE swelling. Denies any sick contacts. Physical Exam (per Admitting): General Appearance: WD/WN, no apparent distress (resting comfortably with NC oxygen in place) Head: normocephalic, atraumatic Eyes: normal inspection, PERRL, sclerae normal ENT: hearing grossly normal, pharynx normal, + nasal congestion Neck: supple, no adenopathy, thyroid normal, trachea midline Respiratory/Chest: chest non-tender, normal breath sounds, no respiratory distress, no accessory muscle use, + pertinent finding (Coarse breath sounds in R lower lobe. Otherwise clear to auscultation) Cardiovascular: regular rate, rhythm, no murmur Abdomen/GI: normal bowel sounds, non tender, soft, no organomegaly Back: normal inspection Extremities/Musculoskelatal: normal inspection, no calf tenderness, normal capillary refill, no pedal edema, + pertinent finding (L arm cast observed ) Neurologic/Psych: no motor/sensory deficits, alert, normal mood/affect, oriented x 3 Skin: normal color, warm/dry, no rash Lymphatic: no adenopathy Hospital Course Hypoxia Mostly related to bronchitis -2 saturation on admission was 82% -Considered PNA but no leukocytosis, no evidence on CXR -CXR was negative -CTA chest showed no evidence for PE. Scattered areas of mosaic attenuation with bronchial wall thickening and subsegmental linear pleural-based opacities are present suggesting mild bronchitis with air trapping and atelectasis. - No leukocytosis, afebrile - Saturated well on RA - D/C Rocephin - will continue PO Zithromax for the bronchitis - Will schedule follow up with PCP on Thursday Echo Showed * Ejection Fraction = 60-65%. * The left ventricular wall motion is normal. * Grade I diastolic dysfunction, (abnormal relaxation pattern). * No significant valvular pathology. Hypomagnesemia: -Mg 1.7 -Mg Replaced - Continue monitor mg DM II: -Hgb a1c of 8.1 (01/08) -Held oral agents -SSI while in-patient - Counseling pt to follow a healthy DM HTN: -Continue home dose valsartan-HCTZ Stable Depression: -Continue home dose Celexa DVT Ppx: Lovenox Code status: FULL Disposition Follow up with Dr. Lindsey ( Dr. Acosta's partner) on 02/20 @ 12:45 pm Total time spent on discharge = 35 minutes This includes examination of the patient, discharge planning, medication reconciliation, and communication with other providers. Discharge Instructions Discharge Instructions Date of Service Feb 17, 2017. Admission Reason for Admission: Bronchitis, Hypoxia Discharge Discharge Diagnosis / Problem: Bronchitis associated with hypoxia, Diabetes Discharge Goals Goal(s): Decrease discomfort, Increase independence, Improve disease control Activity Recommendations Activity Limitations: resume your previous activity (as tolerated) . Instructions / Follow-Up Instructions / Follow-Up Follow up with Dr. Lindsey ( Dr. Acosta's partner) on 02/20 @ 12:45 pm Follow up a healthy diabetes diet with low carb Limited concentrated sweet Complete antibiotic course Current Hospital Diet Patient's current hospital diet: Diabetes Type 2 Diet, Low Sodium Diet (2gm Na) Discharge Diet Recommended Diet: Low Sodium Diet (2gm Na), Diabetes Type 2 Diet Pending Studies Studies pending at discharge: yes List of pending studies: blood culture Medical Emergencies . Who to Call and When: Medical Emergencies: If at any time you feel your situation is an emergency, please call 911 immediately. . Non-Emergent Contact Non-Emergency issues call your: Primary Care Provider Call Non-Emergent contact if: you have any medication questions . . "Provider Documentation" section prepared by Rick Ochoa. . VTE Core Measure Inpt VTE Proph given/why not?: Enoxaparin (Lovenox)SQ Additional Copies To Shalonda Lindsey D.O., Brett, M.D.
== END 2017-02-17 18:16 | disposition home or self-care (01) | DRG 202 ==
LOC: C.EDB 07:21 → C.MED 12:21 → ENRESERV 12:35
PROVIDERS: ADMIT Hospitalist; ATTEND Internal Medicine
DX: J40 Bronchitis, not specified as acute or chronic (principal); J18.9 Pneumonia, unspecified organism; E83.42 Hypomagnesemia; E11.9 Type 2 diabetes mellitus without complications; F32.9 Major depressive disorder, single episode, unspecified; I10 Essential (primary) hypertension; Z79.82 Long term (current) use of aspirin; Z83.3 Family history of diabetes mellitus

== ENCOUNTER → 2017-02-23 | Outpatient (CLI) | payer OTHER ==
[~2017-02-23] MED LIST changes: +CLR10 PO; -LORA-554 PO; -METF750T PO; +METFTAB PO; +ZTHM250 PO
== END | disposition home or self-care (01) ==
LOC: C.RDSM 14:15
PROVIDERS: ATTEND Physical Medicine & Rehabilitation Sports Medicine
DX: Z09 Encounter for follow-up examination after completed treatment for conditions other than malignant neoplasm (principal)

== ENCOUNTER → 2017-03-18 | Outpatient (CLI) | payer OTHER | END | disposition home or self-care (01) | LOC: C.RDSM 08:30 | PROVIDERS: ATTEND Physical Medicine & Rehabilitation Sports Medicine | DX: S52.225D Nondisplaced transverse fracture of shaft of left ulna, subsequent encounter for closed fracture with routine healing (principal); X58.XXXD Exposure to other specified factors, subsequent encounter ==

== ENCOUNTER → 2017-04-14 | Outpatient (CLI) | payer OTHER ==
[~2017-04-14] MED LIST changes: +AZIT-57 PO; -ZTHM250 PO
== END | disposition home or self-care (01) ==
LOC: C.RDSM 13:40
PROVIDERS: ATTEND Physical Medicine & Rehabilitation Sports Medicine
DX: S52.225D Nondisplaced transverse fracture of shaft of left ulna, subsequent encounter for closed fracture with routine healing (principal); X58.XXXD Exposure to other specified factors, subsequent encounter

== ENCOUNTER 2020-05-20 10:27 | Inpatient (IN) ==
[2020-05-20] MEDS ORDERED: MECLIZINE HCL 25 MG TAB PO STA (11:14)
[2020-05-20] MEDS ORDERED: SODIUM CHLORIDE 0.9% 1000ML 1,000 ML IV ONE ×2 (11:14→12:34)
--- NOTE | 2020-05-20 11:47 | Emergency Department Note ---
Impression & Plan KATE (acute kidney injury), Diarrhea, Abdominal pain, Dizzy ED Provider Note NAME: ASHKAN AGUDELO AGE: 80 SEX: F : 1940 ARRIVES VIA: Walk-In INFORMANT: Patient ED PROVIDER(S): Dinesh Núñez DO CHIEF COMPLAINT: Abdominal pain and lightheadedness HPI: Patient is an 80-year-old female who presents the ER for not feeling well. She notes she has not felt well for at least the past week. She notes that about 4 to 5 days ago she started with periumbilical epigastric abdominal pain. Has been constant. She had 2 episodes of vomiting when it started. Last bowel movement was last night and watery. She denies any dysuria, urgency or frequency. She does admit to feeling lightheaded/dizzy with changing positions. It gets better when she stays still. She denies any weakness or numbness in her arms or legs. No headache or change in vision currently. She notes that over a week ago she did have a headache but that has now completely abated. ROS: See above HPI for pertinent positives & negatives. A total of 10 systems reviewed and were otherwise negative. PAST MEDICAL HISTORY:See Below PAST SURGICAL HISTORY:See Below FAMILY HISTORY:See Below SOCIAL HISTORY:See Below HOME MEDICATIONS:See Below ALLERGIES:See Below VITALS:See Below PHYSICAL EXAMINATION: GENERAL: Sitting up in bed, alert, well appearing, well nourished, no distress, non-toxic EYE EXAM: normal conjunctiva. PERRL and EOM's intact. OROPHARYNX: no exudate, no erythema, lips, buccal mucosa, and tongue normal and mucous membranes are moist NECK: supple, no nuchal rigidity, no adenopathy, non-tender LUNGS: Clear to auscultation. Normal chest wall mechanics HEART: no murmurs, S1 normal and S2 normal ABDOMEN: abdomen soft, non-tender, normo-active bowel sounds, no masses, no rebound or guarding. UPPER EXTREMITIES: upper extremities are grossly normal. LOWER EXTREMITIES: No pitting edema. NEURO EXAM: Normal sensorium, cranial nerves II-XII intact, normal speech, no weakness of arms, no weakness of legs. No drift. Finger to nose intact. Gross sensation intact. Khoa-ub-guso intact. Rapid alternating movements of upper extremities intact. MEDICAL DECISION MAKING: Patient is an 80-year-old female who presents ER for lightheadedness abdominal pain and weakness. IV was established blood work was obtained. Vitals were unremarkable. Labs showed mild leukocytosis of 11,000. No significant anemia. BMP with a creatinine 2.7 from a baseline of 1.4. Glucose was elevated at 386. Patient was given IV insulin. LFTs bilirubin was unremarkable. UA was unremarkable. Covid was negative. CT abdomen pelvis showed no acute pathology. CT head was unremarkable. Patient was updated bedside given IV fluids admitted to the hospital for further work-up. Triage Nursing notes reviewed. Prior medical records reviewed Vital Signs: reviewed and remarkable for HTN Differential diagnosis: Infection, dehydration, metabolic abnormality, hypo/hyperglycemia, electrolyte disturbance, anemia, hypoxia, cardiac sources, intracerebral event, toxicologic, neurologic, as well as other pathologies. ER treatment provided: See below Diagnostics interpreted by me: ECG: none Cardiac Monitoring: An order was placed for continuous cardiac monitoring. The monitor shows a rate of 84 with sinus rhythm. Laboratory studies: Please see list below Imaging studies: CT abdomen pelvis shows no acute pathology CT of the head was unremarkable Consultation(s): Dr. Wang for further evaluation ED COURSE: Procedures: none Critical Care: None Past Med/Surg History Medical History (Updated 05/20/20 @ 14:18 by Dinesh Núñez DO) Depression Diabetes Diabetic peripheral neuropathy Hypertension Surgical History ([facility]23/20 [facility] 13:54 [facility] No pertinent past surgical history Social History Smoking Status: Never smoker Preferred Language: Telugu Feels Safe at Home: Yes Allergies Allergies Allergy/AdvReac Type Severity Reaction Status Date / Time Sulfa (Sulfonamide Allergy Mild RASH Verified 03/26/18 17:49 Antibiotics) Home Meds Home Medications Medication Instructions Recorded Confirmed aspirin 81 mg PO DAILY 03/26/18 03/26/18 doxycycline hyclate 100 mg PO BID 03/26/18 03/26/18 empagliflozin [Jardiance] 25 mg PO QAM 03/26/18 03/26/18 glipizide 2.5 mg PO QAM 03/26/18 03/26/18 loratadine 10 mg PO DAILY 03/26/18 03/26/18 metformin 1,000 mg PO DAILY 03/26/18 03/26/18 multivitamin with minerals 1 tab PO QAM 03/26/18 03/26/18 [Multiple Vitamin-Minerals] naproxen sodium [Aleve] 220 mg PO BID PRN 03/26/18 03/26/18 ondansetron HCl 4 mg PO Q8H PRN 03/26/18 03/26/18 valsartan-hydrochlorothiazide 1 tab PO DAILY 03/26/18 03/26/18 venlafaxine 75 mg PO DAILY 03/26/18 03/26/18 Results & Data (ED) Vital Signs Vital Signs - 24 hr 05/20/20 10:32 05/20/20 11:13 Temperature 36.4 C L Temperature Source Temporal Artery Scan Pulse Rate 87 Pulse Rhythm Regular Respiratory Rate 17 Respiratory Effort / Characteristics Non-Labored Respiratory Depth Normal Respiratory Pattern Regular Blood Pressure 145/77 H Blood Pressure Mean 99 Blood Pressure Position Sitting Pulse Oximetry 97 Oxygen Delivery Method Room Air Room Air Sepsis Recent Fever Within 48 Hours No Sepsis New/Unexplained Change in Mental Status No Sepsis Action Taken by Nursing No Action Required Laboratory Data Result diagrams: 05/20/20 11:59 05/20/20 11:59 Lab Results 05/20/20 05/20/20 05/20/20 Range/Units 11:59 11:59 12:45 WBC 10.91 H (4.8-10.8) K/uL RBC 4.61 (4.2-5.4) M/uL Hgb 14.9 (12.0-16.0) g/dL Hct 42.5 (37-47) % MCV 92.2 (80-100) fL MCH 32.3 (25-34) pg MCHC 35.1 (32-36) g/dL RDW Std Deviation 40.8 (36.4-46.3) fL RDW Coeff of Dawn 12.1 (11.5-14.5) % Plt Count 189 (130-400) K/uL MPV 12.0 H (7.4-10.4) fL Immature Gran % (Auto) 0.4 % Neut % (Auto) 80.2 % Lymph % (Auto) 13.5 % Luna % (Auto) 4.4 % Eos % (Auto) 1.3 % Baso % (Auto) 0.2 % Neut # (Auto) 8.76 H (1.4-6.5) K/uL Lymph # (Auto) 1.47 (1.2-3.4) K/uL Luna # (Auto) 0.48 (0.11-0.59) K/uL Eos # (Auto) 0.14 (0-0.5) K/uL Baso # (Auto) 0.02 (0-0.2) K/uL Immature Gran # (Auto) 0.04 H (0.00-0.02) K/uL Sodium 131 L (136-145) mmol/L Potassium 3.6 (3.5-5.1) mmol/L Chloride 92 L (98-107) mmol/L Carbon Dioxide 30 (21-32) mmol/L Anion Gap 9.0 (3-11) BUN 59 H (7-18) mg/dl Creatinine 2.72 H (0.6-1.2) mg/dl Est Cr Clr Drug Dosing 14.2 ml/min Est GFR ( Amer) 18.3 Est GFR (Non-Af Amer) 15.7 BUN/Creatinine Ratio 21.5 H (10-20) Glucose 383 H* (70-99) mg/dl Calcium 9.8 (8.5-10.1) mg/dl Total Bilirubin 0.3 (0.2-1) mg/dl AST 14 L (15-37) U/L ALT 29 (12-78) U/L Alkaline Phosphatase 100 (45-117) U/L Total Protein 7.2 (6.4-8.2) gm/dl Albumin 3.4 (3.4-5.0) gm/dl Globulin 3.8 (2.5-4.0) gm/dl Albumin/Globulin Ratio 0.9 (0.9-2) Lipase 317 (73-393) U/L Beta-Hydroxybutyric Acd 14.98 H (0.2-2.81) mg/dl Specimen Hemolysis Urine Color Yellow Urine Appearance Clear (Clear) Urine pH 5.0 (4.5-7.5) Ur Specific [place] 1.023 (1.000-1.030) Urine Protein Trace H (Negative) Urine Glucose (UA) 3+ H (Negative) Urine Ketones Trace H (Negative) Urine Blood Negative (Negative) Urine Nitrite Negative (Negative) Urine Bilirubin Negative (Negative) Urine Urobilinogen Negative (Negative) Ur Leukocyte Esterase 1+ H (Negative) Urine WBC (Auto) 10-30 H (0-5) /hpf Urine RBC (Auto) 0-4 (0-4) /hpf U Hyaline Cast (Auto) 10-30 H (0-5) /lpf U Epithel Cells (Auto) >30 H (0-5) /lpf Urine Bacteria (Auto) Negative (Negative) COVID-19 Eval Order SARS-CoV-2, RNA, NAAT (NEGATIVE) 05/20/20 05/20/20 Range/Units 13:35 13:35 WBC (4.8-10.8) K/uL RBC (4.2-5.4) M/uL Hgb (12.0-16.0) g/dL Hct (37-47) % MCV (80-100) fL MCH (25-34) pg MCHC (32-36) g/dL RDW Std Deviation (36.4-46.3) fL RDW Coeff of Dawn (11.5-14.5) % Plt Count (130-400) K/uL MPV (7.4-10.4) fL Immature Gran % (Auto) % Neut % (Auto) % Lymph % (Auto) % Luna % (Auto) % Eos % (Auto) % Baso % (Auto) % Neut # (Auto) (1.4-6.5) K/uL Lymph # (Auto) (1.2-3.4) K/uL Luna # (Auto) (0.11-0.59) K/uL Eos # (Auto) (0-0.5) K/uL Baso # (Auto) (0-0.2) K/uL Immature Gran # (Auto) (0.00-0.02) K/uL Sodium (136-145) mmol/L Potassium (3.5-5.1) mmol/L Chloride (98-107) mmol/L Carbon Dioxide (21-32) mmol/L Anion Gap (3-11) BUN (7-18) mg/dl Creatinine (0.6-1.2) mg/dl Est Cr Clr Drug Dosing ml/min Est GFR ( Amer) Est GFR (Non-Af Amer) BUN/Creatinine Ratio (10-20) Glucose (70-99) mg/dl Calcium (8.5-10.1) mg/dl Total Bilirubin (0.2-1) mg/dl AST (15-37) U/L ALT (12-78) U/L Alkaline Phosphatase (45-117) U/L Total Protein (6.4-8.2) gm/dl Albumin (3.4-5.0) gm/dl Globulin (2.5-4.0) gm/dl Albumin/Globulin Ratio (0.9-2) Lipase (73-393) U/L Beta-Hydroxybutyric Acd (0.2-2.81) mg/dl Specimen Hemolysis Urine Color Urine Appearance (Clear) Urine pH (4.5-7.5) Ur Specific [place] (1.000-1.030) Urine Protein (Negative) Urine Glucose (UA) (Negative) Urine Ketones (Negative) Urine Blood (Negative) Urine Nitrite (Negative) Urine Bilirubin (Negative) Urine Urobilinogen (Negative) Ur Leukocyte Esterase (Negative) Urine WBC (Auto) (0-5) /hpf Urine RBC (Auto) (0-4) /hpf U Hyaline Cast (Auto) (0-5) /lpf U Epithel Cells (Auto) (0-5) /lpf Urine Bacteria (Auto) (Negative) [facility], RNA, NAAT NEGATIVE (NEGATIVE) Administered Medications Discontinued Medications Sodium Chloride (Nss 1000ml) 1,000 mls @ 999 mls/hr IV .Q1H1M ONE Stop: 05/20/20 12:14 Last Infusion: 05/20/20 12:50 Dose: 0 mls/hr Documented by: [id number] Admin: 05/20/20 11:45 Dose: 999 mls/hr Documented by: [id number] Sodium Chloride (Nss 1000ml) 1,000 mls @ 999 mls/hr IV .Q1H1M ONE Stop: 05/20/20 13:34 Last Infusion: 05/20/20 14:05 Dose: 0 mls/hr Documented by: [id number] Admin: 05/20/20 12:50 Dose: 999 mls/hr Documented by: [id number] Meclizine HCl (Meclizine Hcl 25 Mg Tab) 25 mg PO NOW STA Stop: 05/20/20 11:15 Last Admin: 05/20/20 12:50 Dose: 25 mg Documented by: [id number] Discharge Plan Visit Data Chief Complaint: Diarrhea Stated Complaint: NAUSEA,DIARRHEA,NOT FEELING WELL ED Provider: Dinesh Núñez Discharge Problem: KATE (acute kidney injury), Diarrhea, Abdominal pain, Dizzy Forms Stand Alone Forms: [facility] nodila Prescriptions Prescriptions: No Action venlafaxine 75 mg capsule,extended release 24hr 75 mg PO QAM RF: 0 ondansetron HCl 4 mg tablet 4 mg PO Q8H PRN (Reason: Nausea) RF: 0 valsartan-hydrochlorothiazide 160-12.5 mg Tablet 1 tab PO QAM RF: 0 aspirin 81 mg Tablet,Delayed Release (Dr/Ec) 81 mg PO QAM RF: 0 glipizide 2.5 mg Tablet Extended Release 24hr 2.5 mg PO QAM RF: 0 multivitamin with minerals [Multiple Vitamin-Minerals] Tablet 1 tab PO QAM RF: 0 loratadine 10 mg Tablet 10 mg PO DAILY RF: 0 metformin 500 mg Tablet Extended Release 24hr 1,000 mg PO QAM RF: 0 Jardiance 25 mg Tablet 25 mg PO QAM RF: 0 Discharge Problem: Diarrhea Qualifiers: Diarrhea type: unspecified type Qualified Code(s): R19.7 - Diarrhea, unspecified Abdominal pain Qualifiers: Abdominal location: unspecified location Qualified Code(s): R10.9 - Unspecified abdominal pain
[2020-05-20 12:29] LABS: Basophils # (auto) 0.02 K/uL (0-0.2); Basophils % (auto) 0.2 %; Eosinophils # (auto) 0.14 K/uL (0-0.5); Eosinophils % (auto) 1.3 %; Hematocrit (blood only) 42.5 % (37-47); Hemoglobin 14.9 g/dL (12.0-16.0); Immature Granulocytes # (auto) 0.04 K/uL (0.00-0.02); Immature Granulocytes % (auto) 0.4 %; Lymphocytes # (auto) 1.47 K/uL (1.2-3.4); Lymphocytes % (auto) 13.5 %; Mean Corpuscular Hemoglobin 32.3 pg (25-34); Mean Corpuscular Hgb Conc 35.1 g/dL (32-36); Mean Corpuscular Volume 92.2 fL (80-100); Monocytes # (auto) 0.48 K/uL (0.11-0.59); Monocytes % (auto) 4.4 %; Neutrophils # (auto) 8.76 K/uL (1.4-6.5); Neutrophils % (auto) 80.2 %; Platelet Count 189 K/uL (130-400); RDW Coefficient of Variation 12.1 % (11.5-14.5); RDW Standard Deviation 40.8 fL (36.4-46.3); Red Blood Count 4.61 M/uL (4.2-5.4); White Blood Count 10.91 K/uL (4.8-10.8)
[2020-05-20 12:53] LABS: Albumin Globulin Ratio 0.9 (0.9-2); Albumin Level 3.4 gm/dl (3.4-5.0); BUN Creatinine Ratio 21.5 (10-20); Bilirubin,Total 0.3 mg/dl (0.2-1); Calcium 9.8 mg/dl (8.5-10.1); Creatinine Clr Calc Pharmacy 14.2 ml/min; Est GFR (African American) 18.3; Est GFR (Non-African American) 15.7; Globulin 3.8 gm/dl (2.5-4.0); Potassium 3.6 mmol/L (3.5-5.1); Total Protein 7.2 gm/dl (6.4-8.2)
[2020-05-20] MEDS ORDERED: NovoLIN-R INSULIN PER UNIT CHARGE IV STA (12:56)
[2020-05-20 13:23] LABS: Beta-Hydroxybutyrate 14.98 mg/dl (0.2-2.81)
[2020-05-20 13:27] LABS: Appearance Urine Clear (Clear); Bacteria Urine Automated Negative (Negative); Bilirubin Urine Negative (Negative); Blood Urine Negative (Negative); Color Urine Yellow; Epithelial Cell Urine Auto >30 /lpf (0-5); Glucose Urine UA 3+ (Negative); Ketones Urine Trace (Negative); Leukocyte Esterase Urine 1+ (Negative); Nitrite Urine Negative (Negative); Protein Urine Trace (Negative); RBC Urine Automated 0-4 /hpf (0-4); Specific Gravity Urine 1.023 (1.000-1.030); Urobilinogen Urine Negative (Negative)
--- NOTE | 2020-05-20 13:30 | CT Scan Report ---
CT head/brain wo con CLINICAL HISTORY: Severe headache COMPARISON STUDY: 03/26/2018 TECHNIQUE: Axial CT of the brain is performed from the vertex to the skull base. IV contrast was not administered for this examination. A dose lowering technique was utilized adhering to the principles of ALARA. CT DOSE: FINDINGS: No intra or extra-axial mass lesions are visualized. There is no CT evidence of acute cortical infarc tion. There is no evidence of midline shift. There is no acute hemorrhage. No calvarial fractures ar e visualized. There are patchy white matter hypodensities likely on a small vessel basis. There is no evidence of pathologic ventricular dilatation. There is no evidence of acute sinusitis IMPRESSION: No acute intracranial findings ACT 112: Negative or not required by law. Electronically signed by: Srinivas Juares M.D. 05/20/2020 1:29 PM
--- NOTE | 2020-05-20 13:34 | CT Scan Report ---
CT SCAN OF THE ABDOMEN AND PELVIS WITHOUT CONTRAST CLINICAL HISTORY: Generalized abdominal pain COMPARISON STUDY: No previous studies for comparison. TECHNIQUE: CT scan of the abdomen and pelvis was performed from the lung bases to the proximal femurs . Images are reviewed in the axial, sagittal, and coronal planes. IV contrast was not administered fo r this examination. A dose lowering technique was utilized adhering to the principles of ALARA. CT DOSE: 1224.22 mGy.cm FINDINGS: Lower chest: There are mild basilar atelectatic changes Liver: The unenhanced liver is normal in size, contour, and attenuation. There is no intrahepatic ham[place] iary ductal dilatation. Gallbladder: Surgically absent Spleen: Normal in size and attenuation. Pancreas: Unremarkable. Adrenal glands: Unremarkable. Kidneys: No renal, ureteral, or bladder calculi are visualized. Bowel: There are no transition zones indicate bowel obstruction. There is colonic diverticulosis. The re is no evidence of acute diverticulitis. The appendix appears normal. Peritoneum: There is no intraperitoneal free air or abdominal ascites. There is a tiny fat-containing umbilical hernia Vasculature: The abdominal aorta is normal in course and caliber. Adenopathy: None. Pelvic viscera: The uterus is surgically absent. Skeletal structures: No destructive osseous lesions are seen. IMPRESSION: 1. No evidence of bowel obstruction. No evidence of free air 2. No renal, ureteral, or bladder calculi identified 3. Normal appendix. No evidence of acute diverticulitis 4. Surgically absent gallbladder and uterus. ACT 112: Negative or not required by law. Electronically signed by: Srinivas Juares M.D. 05/20/2020 1:32 PM
--- NOTE | 2020-05-20 15:02 | History & Physical Report ---
Date of Service May 20, 2020 Assessment & Plan (1) Nausea vomiting and diarrhea: Symptoms has been there for a few days with epigastric discomfort/pain Likely secondary to gastroenteritis Has been getting better as of today We will give intravenous fluid and symptomatic management Stool has been sent for C. difficile and culture (2) Gastroenteritis: As above (3) Uncontrolled diabetes mellitus: Blood sugar noted to be high at 383 Will hold oral medications Put her on sliding scale insulin coverage while in the hospital (4) KATE (acute kidney injury): Likely secondary to dehydration Adequate intravenous fluid and monitor PRP Advised to have more oral intake of fluid (5) Hypertension: Continue current medication Remains on the upper side (6) Depression: No acute delirium DVT prophylaxis Subcu heparin CODE STATUS Full Discussed with the son History of Present Illness Chief Complaint: Headache, nausea vomiting and diarrhea for the last 2 to 3 weeks Primary Care Provider: Guanakito Burgos MD She is an 80-year-old female with significant past medical history of diabetes type 2 with neuropathy, hypertension and depression has been complaining of mild attack of migraine for the last 3 weeks. She did not have any other associated symptoms with the headache. She has been complaining of epigastric discomfort and has had bouts of nausea, vomiting and diarrhea about 2 days ago. She has not been eating or drinking enough because she has loss of appetite and has been getting generally weak. Denies any fever and/or chills, denies any cough and/or shortness of breath. Denies any problem with her urine. She did not feel right this morning on waking up and decided to come to the emergency room and still complains to have some epigastric discomfort and minimal headache without any other symptoms. She was tested negative for Covid. Allergies Allergy/AdvReac Type Severity Reaction Status Date / Time Sulfa (Sulfonamide Allergy Mild RASH Verified 05/20/20 14:25 Antibiotics) Home Medications Medication Instructions Recorded Confirmed Type aspirin 81 mg PO QAM 03/26/18 05/20/20 History empagliflozin [Jardiance] 25 mg PO QAM 03/26/18 05/20/20 History glipizide 2.5 mg PO QAM 03/26/18 05/20/20 History loratadine 10 mg PO DAILY 03/26/18 05/20/20 History metformin 1,000 mg PO QAM 03/26/18 05/20/20 History multivitamin with minerals 1 tab PO QAM 03/26/18 05/20/20 History [Multiple Vitamin-Minerals] ondansetron HCl 4 mg PO Q8H PRN 03/26/18 05/20/20 History valsartan-hydrochlorothiazide 1 tab PO QAM 03/26/18 05/20/20 History venlafaxine 75 mg PO QAM 03/26/18 05/20/20 History Past Med/Surg History Medical History (Updated 05/20/20 @ 14:59 by Daria Wang MD) Depression Diabetes Diabetic peripheral neuropathy Hypertension Surgical History (Updated 01/23/20 @ 13:54 by CYPHER Sc) No pertinent past surgical history Social History Smoking Status: Never smoker Preferred Language: Hebrew Feels Safe at Home: Yes Review of Systems Review of Systems: All systems reviewed & are unremarkable except as noted in HPI & below Physical Exam Physical Exam: Lying in bed comfortably but anxious Constitutional: well developed and well nourished; no acute distress and not ill appearing Eyes: PERRL, conjunctivae normal, anicteric sclerae ENMT: external ear and nose normal, oropharynx normal Neck: trachea midline, no thyromegaly Respiratory: no respiratory distress Auscultation: lungs clear to auscultation bilaterally Cardiovascular: Rate/Rhythm: regular rate and regular rhythm Heart Sounds: no murmur Extremities: + edema (Trace edema bilaterally) Gastrointestinal (Abdomen): Inspection/Auscultation: normal bowel sounds; abdomen not distended Percussion/Palpation: + abdomen tender (Mildly tender epigastrium) and abdomen soft Musculoskeletal: No acute arthritis in any joint Neurologic: Alert, awake and oriented x3. Generally weak but no focal sensory and motor deficit appreciated Psychiatric: A+Ox3, euthymic affect Lymphatic: no cervical or axillary lymphadenopathy Results & Data Results & Data ([facility]) Vital Signs (Past 12 Hours) Vital Signs Temp Pulse Resp BP Pulse Ox 05/20/20 10:32 36.4 C L 87 17 145/77 H 97 Laboratory Results Short CBC 05/20/20 Range/Units 11:59 WBC 10.91 H (4.8-10.8) K/uL Hgb 14.9 (12.0-16.0) g/dL Hct 42.5 (37-47) % Plt Count 189 (130-400) K/uL BMP 05/20/20 11:59 Sodium 131 L Potassium 3.6 Chloride 92 L Carbon Dioxide 30 BUN 59 H Creatinine 2.72 H Glucose 383 H* Calcium 9.8 Liver Function 05/20/20 Range/Units 11:59 Total Bilirubin 0.3 (0.2-1) mg/dl AST 14 L (15-37) U/L ALT 29 (12-78) U/L Alkaline Phosphatase 100 (45-117) U/L Albumin 3.4 (3.4-5.0) gm/dl Urine 05/20/20 Range/Units 12:45 Urine Color Yellow Urine Appearance Clear (Clear) Urine pH 5.0 (4.5-7.5) Ur Specific [place] 1.023 (1.000-1.030) Urine Protein Trace H (Negative) Urine Glucose (UA) 3+ H (Negative) Medications Administered Current Inpatient Medications Heparin Sodium (Porcine) (Heparin Sod 5,000 Unit/0.5 Ml Vial) 5,000 units SQ Q12 STEVAN Stop: 06/19/20 20:59 Code Status & VTE Plan VTE Prophylaxis Plan VTE Prophylaxis will be ordered: Yes
--- NOTE | 2020-05-20 15:34 | XRay Report ---
XR chest 2V PA/lateral CLINICAL HISTORY: Pneumonia COMPARISON STUDY: 03/26/2018 FINDINGS: The cardiac and mediastinal contours remain stable. There is no failure. There is no lobar consolidation. There is minor basilar atelectasis. There is stable mild thickening of the right minor fissure. No pleural effusions are visualized.[ IMPRESSION: No active disease in the chest. ACT 112: Negative or not required by law. Electronically signed by: Srinivas Juares M.D. 05/20/2020 3:32 PM
[2020-05-20] MEDS: INSULIN ASPART 100 UNITS/ML 3 ML PEN SC SCH ×2 (19:42→20:46)
[2020-05-20] MEDS: HEPARIN SOD 5,000 UNIT/0.5 ML VIAL SQ SCH (20:46)
[2020-05-21] MEDS: HEPARIN SOD 5,000 UNIT/0.5 ML VIAL SQ SCH ×2 (08:04→21:21)
[2020-05-21] MEDS: VENLAFAXINE HCL XR 75 MG CAPXR PO SCH (08:05)
[2020-05-21] MEDS: ASPIRIN 81 MG ECTAB PO SCH (08:05)
[2020-05-21] MEDS: hydroCHLOROthiazide 25 MG TAB PO SCH (08:05)
[2020-05-21] MEDS: LORATADINE 10 MG TAB PO SCH (08:05)
[2020-05-21] MEDS: MULTIVITAMIN TAB PO SCH (08:05)
[2020-05-21] MEDS: VALSARTAN 80 MG TAB PO SCH (08:06)
[2020-05-21] MEDS: INSULIN ASPART 100 UNITS/ML 3 ML PEN SC SCH ×4 (08:06→22:13)
[2020-05-21] MEDS ORDERED: VALSARTAN/HCTZ 160/12.5MG TAB PO SCH (09:00)
--- NOTE | 2020-05-21 18:30 | Hospitalist Progress Note ---
Date of Service May 21, 2020 Assessment & Plan (1) Nausea vomiting and diarrhea: Symptoms has been there for a few days with epigastric discomfort/pain Likely secondary to gastroenteritis Has been getting better as of today stool for c diff negative (2) Gastroenteritis: As above symptoms has resolved tolerating diet (3) Uncontrolled diabetes mellitus: Blood sugar noted to be high at 383 insulin SSI check Hb A1c in am (4) KATE (acute kidney injury): Likely secondary to dehydration cont IVF repeat BMP in am (5) Hypertension: bp stable depression /crying spell : pt reports of feeling depressed , with crying spell lost her sister recently Having hard time dealing with grief . on venlafaxine 75 mg daily has been helpful with her symptoms Psychiatry consult requested (6) Depression: No acute delirium DVT prophylaxis Subcu heparin CODE STATUS Full Discussed with the son Admission and Anticipated Discharge Date Admission Date: May 20, 2020 Subjective follow up visit for abdominal pain ; pt reports still experiencing abdominal pain but symptoms improved since admission no nausea , vomiting no fever or chills Review of Systems Review of Systems: All systems reviewed & are unremarkable except as noted in HPI & below Gastrointestinal: + abdominal pain; no nausea, no vomiting and no diarrhea/loose stools Physical Exam Constitutional: WD/WN, vitals as above Eyes: PERRL, conjunctivae normal, anicteric sclerae ENMT: external ear and nose normal, oropharynx normal Neck: trachea midline, no thyromegaly Respiratory: normal respiratory effort, lungs clear to auscultation Cardiovascular: RRR, no murmur, no edema Gastrointestinal (Abdomen): Percussion/Palpation: abdomen soft; abdomen nontender Musculoskeletal: no cyanosis or clubbing, extremities motor strength 5/5 Skin: no rashes, warm and dry Neurologic: PERRL, EOMI, accommodation nl, no face palsy, no dysarthria Psychiatric: A+Ox3, euthymic affect Results & Data Results & Data ([facility]) Vital Signs (Past 12 Hours) Vital Signs Temp Pulse Resp BP Pulse Ox 05/21/20 16:28 36.8 C 113 H 16 109/68 94 05/21/20 07:25 36.3 C L 97 H 16 147/70 H 93
[2020-05-21] MEDS ORDERED: LOPERAMIDE HCL 2 MG CAP PO PRN (21:35)
[2020-05-21] MEDS ORDERED: SODIUM CHLORIDE 0.9% 1000ML 1,000 ML IV SCH (21:45)
[2020-05-21] MEDS: INSULIN GLARGINE SOLOSTAR 100 UNITS/ML 3 ML PEN SC SCH (22:13)
[2020-05-22 08:08] LABS: BUN Creatinine Ratio 27.7 (10-20); Calcium 8.8 mg/dl (8.5-10.1); Creatinine Clr Calc Pharmacy 36.2 ml/min; Est GFR (African American) 56.4; Est GFR (Non-African American) 48.6; Potassium 2.9 mmol/L (3.5-5.1)
[2020-05-22 08:23] LABS: Estimated Average Glucose 209 mg/dl; Hemoglobin A1C 8.9 % (4.5-5.6)
[2020-05-22] MEDS: LORATADINE 10 MG TAB PO SCH (09:18)
[2020-05-22] MEDS: ASPIRIN 81 MG ECTAB PO SCH (09:18)
[2020-05-22] MEDS: hydroCHLOROthiazide 25 MG TAB PO SCH (09:18)
[2020-05-22] MEDS: VENLAFAXINE HCL XR 75 MG CAPXR PO SCH (09:18)
[2020-05-22] MEDS: MULTIVITAMIN TAB PO SCH (09:20)
[2020-05-22] MEDS: VALSARTAN 80 MG TAB PO SCH (09:20)
[2020-05-22] MEDS: ADVANCED PROBIOTIC 1250 MG CAPSULE PO SCH (09:20)
[2020-05-22] MEDS: INSULIN GLARGINE SOLOSTAR 100 UNITS/ML 3 ML PEN SC SCH ×2 (09:22→20:55)
[2020-05-22] MEDS: HEPARIN SOD 5,000 UNIT/0.5 ML VIAL SQ SCH ×3 (09:24→21:04)
[2020-05-22] MEDS: INSULIN ASPART 100 UNITS/ML 3 ML PEN SC SCH ×4 (09:25→20:57)
--- NOTE | 2020-05-22 10:34 | Psychiatric Consultation ---
Date of Consultation May 22, 2020 Impression / Recommendations Impression Dr. Dominik Sanderson was directly involved in review and discussion of the patient's case and participated in medical decision making regarding treatment recommendations. RECOMMENDATIONS: 05/22 - Psychiatric consultation requested by hospitalist service to evaluate patient for depression. Confirmed home dosing of venlafaxine to be 150mg qAM based on external medication history as well as instructions on prescription bottle patient directed this provider to from her belongings. It appears this medication was prescribed back in 11/2019. - Pt does endorse depressive symptoms for at least 2 years, but does admit symptoms have worsened in the setting of increased isolation related to COVID-19 pandemic as well as the of her sister 4 weeks prior to this admission. Pt is agreeable with referral for an outpatient therapist, which will likely be very beneficially in offering an environment to process grief and develop new coping strategies that she can utilize during the pandemic to manage anxiety and depressive symptoms. Will have liaison follow-up with ROIs and referral process as able. - Pt was also agreeable with titration of venlafaxine to better target co ntinued depressive symptoms, again, predating of sister 4 weeks ago. Will offer supplemental 75mg dose of venlafaxine this afternoon, 150mg (home dose) tomorrow, and then increase to 187.5mg daily thereafter. Pt can follow-up with her PCP for continued prescriptions, of determine if referral to an outpatient psychiatrist would be preferred at this time. Pt is denying SI/HI, SIB, and any acute safety concerns. No criteria is present at this time to suggest inpatient psychiatric treatment is necessary. - Appreciate the opportunity to participate in the care of this patient. Please reach out to our service with any additional questions or updates. (1) Depression: Depression Type: unspecified Qualified Code(s): F32.9 - Major depressive disorder, single episode, unspecified Psych History Identifying Data 80-year-old female admitted medically on 05/20/2020 after presenting to the ED with nausea/vomiting, diarrhea, and epigastric discomfort with suspected gastroenteritis. Psychiatric consultation was requested by our hospitalist service to evaluate for depression. Chief Complaint "I think it might be good if I made an appointment for a therapist." History of Present Illness Terrie Pina is an 80-year-old female admitted medically on 05/20/2020 after presenting to the ED with complaints of nausea/vomiting, diarrhea, and epigastric discomfort - patient is being treated for gastroenteritis. Psychiatric consultation was requested by our hospitalist service to evaluate patient for depression and crying spells. Pt did report to our liaison nurse that her sister 6 weeks ago, she has had difficulty with increased isolation related to COVID-19 pandemic restrictions, and has reported depressive symptoms for ~2 years. Pt was cooperative and pleasant with psychiatric assessment. Prior to our interaction the patient was observed to be on the phone, sounding bright and interactive with occasional laughter. Pt did kindly end the call in order to have conversation with this provider. Pt shares that she is interested in a therapy referral, as "I feel like I have no one now." The patient shares that she spoke with her sister each morning via phone, and they had often visited each other for long stays. She states "we shared everything with each other. I don't know how to stop myself from thinking about all the things I won't be able to do with her anymore." The patient feels as though her access to other supports has been limited due to COVID-19 pandemic restrictions - water aerobic classes and baptism groups cancelled. She also admits she tries to not be a burden on her son and [id number], who reside in the upper level of the home. Despite patient's reports that she has little support, the patient received numerous calls from family during our interaction with noticeable brightening of affect. Although some of these stressors are more recent, the patient does admit that she has been noticing worsening depressive symptoms for ~2 years. Pt states "I just don't feel like doing anything. I just sit there, and if I'm not just sitting there then I'm sleeping all day." Pt does become tearful several times during out interaction, and states this is frequently occurring at home as well. We discussed the obvious component of grief at this time, but it also sounds that patient's depressive symptoms predated the of her sister. Pt provided this PA with her prescription bottles, which indicate she is to be taking 150mg of venlafaxine daily. External medication list suggests this dose has been prescribed since 11/2019. Pt does feel a higher dose would be beneficial at this time. Pt denies SI/HI, SIB, and other acute psychiatric safety concerns. Pt denied other needs at this time. Past Psychiatric History Current Psychiatric Diagnosis: Depression Outpatient Services: None - venlafaxine prescribed by PCP Previous Psych Admissions: None History of Previous Suicide Attempt: No Allergies Allergy/AdvReac Type Severity Reaction Status Date / Time Sulfa (Sulfonamide Allergy Mild RASH Verified 05/20/20 14:25 Antibiotics) Home Medications Medication Instructions Recorded Confirmed Type aspirin 81 mg PO QAM 03/26/18 05/20/20 History empagliflozin [Jardiance] 25 mg PO QAM 03/26/18 05/20/20 History glipizide 2.5 mg PO QAM 03/26/18 05/20/20 History loratadine 10 mg PO DAILY 03/26/18 05/20/20 History metformin 1,000 mg PO QAM 03/26/18 05/20/20 History multivitamin with minerals 1 tab PO QAM 03/26/18 05/20/20 History [Multiple Vitamin-Minerals] ondansetron HCl 4 mg PO Q8H PRN 03/26/18 05/20/20 History valsartan-hydrochlorothiazide 1 tab PO QAM 03/26/18 05/20/20 History venlafaxine 75 mg PO QAM 03/26/18 05/20/20 History Family History Son with depression. Denies other known family history of psychiatric diagnoses or suicide attempt/completion. Substance Abuse History Denies significant alcohol or tobacco use. Denies use of illicit substances. 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[place]) Marital Status: (had been 47 years; from complications from ALS in 2006) Beliefs That Will Affect Care: Rastafarian History of Legal Problems: Denied Psychological Trauma History Comment: Denied Patient History Medical History Depression Diabetes Diabetic peripheral neuropathy Hypertension Surgical History No pertinent past surgical history Social History Smoking Status: Never smoker Second Hand Exposure: Yes; Do You Dip or Chew Tobacco: No; Tobacco Cessation Education Requested by Patient: No Hx Alcohol Use: No Hx Substance Use: No Preferred Language: Divehi Communication Ability: Effective Diesel Service Technician Required: No Beliefs That Will Affect Care: Rastafarian Current Living Situation: Family Current Living Situation Comment: lower level of house, son and daughter in law live in top level Other Information That Helps Us Care for You: No Feels Safe at Home: Yes Safety Concerns: Feels Safe At This Time Assistive Devices: Glasses Assistive Devices Comment: reading glasses Physical Exam Psychiatric: Orientation: alert, oriented x 3 and cooperative (and pleasant) Apperance: appropriately dressed, appropriately groomed and appeared stated age Petite female, laying in bed in no acute distress. Pt is ap propriately dressed in casual clothing. Short figueroa hair appears clean and neatly styled. Level of hygiene and grooming appears appropriate, fingernails neatly manicured. Eye Contact: good eye contact Motor Behavior: no abnormal motor movements (observed while laying in bed) Speech: normal rate/rhythm/volume of speech Affect: euthymic affect (predominantly smiling and interactive; with some episodes of tearfulness) Mood: + depressed mood Thought Process: goal directed thought process and clear/coherent thought process Thought Content: reality based without delusions and + loneliness; no hopelessness and no worthlessness Suicidal Thoughts: denies suicidal thoughts, denies suicidal plan and denies suicidal intent Homicidal Thoughts: denies homicidal thoughts Hallucinations: no auditory hallucinations and no visual hallucinations Cognition: recent memory grossly intact, attention grossly intact and language grossly intact Estimated Intelligence: consistent with education level Insight: + fair insight Judgement: + fair judgement Vital Signs (Past 24 Hours): Last Vital Signs Temp 36.8 C 05/22/20 07:32 Pulse 85 05/22/20 07:32 Resp 18 05/22/20 07:32 BP 138/76 05/22/20 07:32 Pulse Ox 97 05/22/20 07:32 Review of Systems Constitutional: denied Cardiovascular: denied Respiratory: denied Gastrointestinal: denied Neurological: denied Psychiatric: denies symptoms other than stated above Total of at least 10 systems reviewed, pertinent positives as above and in HPI. Results & Data (PSY) Medications Administered Aspirin (Aspirin 81 Mg Ectab) 81 mg PO QAM STEVAN Stop: 06/20/20 08:59 Last Admin: 05/22/20 09:18 Dose: 81 mg Documented by: [id number] Admin: 05/21/20 08:05 Dose: 81 mg Documented by: [id number] Heparin Sodium (Porcine) (Heparin Sod 5,000 Unit/0.5 Ml Vial) 5,000 units SQ Q12 [facility] Stop: 06/19/20 20:59 Last Admin: 05/22/20 09:24 Dose: Not Given Documented by: [id number] Admin: 05/21/20 21:21 Dose: Not Given Documented by: [id number] Admin: 05/21/20 08:04 Dose: 5,000 units Documented by: [id number] Admin: 05/20/20 20:46 Dose: 5,000 units Documented by: [id number] Hydrochlorothiazide (Hydrochlorothiazide 25 Mg Tab) [facility]: 06/20/20 08:59 Last Admin: 05/22/20 09:18 Dose: 12.5 mg Documented by: [id number] Admin: 05/21/20 08:05 Dose: 12.5 mg Documented by: [id number] Insulin Aspart (Insulin Aspart 100 Units/Ml 3 Ml Pen) 0 units SC ACHS [facility] Stop: 06/19/20 16:29 Last Admin: 05/22/20 09:25 Dose: 9 units Documented by: [id number] Cosigned by: [id number] Admin: 05/21/20 22:13 Dose: 9 units Documented by: [id number] Cosigned by: [id number] Admin: 05/21/20 18:08 Dose: 5 units Documented by: [id number] Cosigned by: [id number] Admin: 05/21/20 12:34 Dose: 7 units Documented by: [id number] Cosigned by: [id number] Admin: 05/21/20 08:06 Dose: 7 units Documented by: [id number] Cosigned by: [id number] Admin: 05/20/20 20:46 Dose: 2 units Documented by: [id number] Cosigned by: [id number] Admin: 05/20/20 19:42 Dose: Not Given Documented by: [id number] Cosigned by: [id number] Insulin Glargine (Insulin Glargine Solostar 100 Units/Ml 3 Ml Pen) 0 units SC BID STEVAN; Protocol Stop: 01/27/21 20:59 Last Admin: 05/22/20 09:22 Dose: 7 units Documented by: [id number] Cosigned by: [id number] Admin: 05/21/20 22:13 Dose: 7 units Documented by: [id number] Cosigned by: [id number] Lactobacillus Acidoph/Casei/Rhamnos (Advanced Probiotic 1250 Mg Capsule) 2 cap PO DAILY [facility] Stop: 06/21/20 08:59 Last Admin: 05/22/20 09:20 Dose: 2 cap Documented by: [id number] Loratadine (Loratadine 10 Mg Tab) 10 mg PO DAILY [facility] Stop: 06/20/20 08:59 Last Admin: 05/22/20 09:18 Dose: 10 mg Documented by: [id number] Admin: 05/21/20 08:05 Dose: 10 mg Documented by: [id number] Multivitamins (Multivitamin Tab) [facility] Stop: 06/20/20 08:59 Last Admin: 05/22/20 09:20 Dose: 1 tab Documented by: [id number] Admin: 05/21/20 08:05 Dose: 1 tab Documented by: [id number] Valsartan (Valsartan 80 Mg Tab) 160 mg PO [facility] Stop: 06/20/20 08:59 Last Admin: 05/22/20 09:20 Dose: 160 mg Documented by: [id number] Admin: 05/21/20 08:06 Dose: 160 mg Documented by: [id number] Venlafaxine HCl (Venlafaxine Hcl Xr 75 Mg Capxr) 75 mg PO [facility] Stop: 06/20/20 08:59 Last Admin: 05/22/20 09:18 Dose: 75 mg Documented by: [id number] Admin: 05/21/20 08:05 Dose: 75 mg Documented by: [id number] Coding Level of Care Code 47939 U Intl Hosp Care Lvl 2 Diagnoses Depression F32.9 Depression Type: unspecified
[2020-05-22] MEDS ORDERED: VENLAFAXINE HCL XR 75 MG CAPXR PO ONE (12:30)
[2020-05-22] MEDS ORDERED: POTASSIUM CHLORIDE CRTAB 20 MEQ TABCR PO ONE (13:45)
--- NOTE | 2020-05-22 16:22 | Hospitalist Progress Note ---
Date of Service May 22, 2020 Assessment & Plan (1) Nausea vomiting and diarrhea: Symptom has completely resolved, Likely secondary to viral gastroenteritis/ Reading diet, no further episode of loose stool or diarrhea, no nausea stool for c diff negative (2) Gastroenteritis: As above symptoms has resolved tolerating diet (3) Uncontrolled diabetes mellitus: Blood sugar noted to be high at 383 insulin SSI Hemoglobin A1c noted to be more than 8, appreciate input from rn diabetes educator and pharmacy for glycemic management (4) KATE (acute kidney injury): Resolved renal failure improved to baseline with IV fluids Likely secondary to dehydration IVF discontinued Hypokalemia: Possible secondary to hydrochlorothiazide Given oral replacement repeat BMP in a.m. (5) Hypertension: - Pt does endorse depressive symptoms for at least 2 years, but does admit symptoms have worsened in the setting of increased isolation related to COVID-19 pandemic as well as the of her sister 4 weeks prior to this admission. Pt is agreeable with referral for an outpatient therapist, which will likely be very beneficially in offering an environment to process grief and develop new coping strategies that she can utilize during the pandemic to manage anxiety and depressive symptoms. Will have liaison follow-up with ROIs and referral process as able. - Pt was also agreeable with titration of venlafaxine to better target continued depressive symptoms, again, predating of sister 4 weeks ago. Will offer supplemental 75mg dose of venlafaxine this afternoon, 150mg (home dose) tomorrow, and then increase to 187.5mg daily thereafter. Pt can follow-up with her PCP for continued prescriptions, of determine if referral to an outpatient psychiatrist would be preferred at this time. Pt is denying SI/HI, SIB, and any acute safety concerns. No criteria is present at this time to suggest inpatient psychiatric treatment is necessary. bp stable depression /crying spell : pt reports of feeling depressed , with crying spell lost her sister recently Having hard time dealing with grief . Appreciate input from psychiatry, Antidepressant, Effexor dose adjusted, was increased to 150 mg in a.m. and then increased to 187.5 mg daily after that, Patient will need to follow-up with family physician outpatient psychiatric, psychotherapist Patient is now in stable mood, talking with family members over phone, smiling, more pleasant, To discharge her home tomorrow (6) Depression: Treatment as outlined above DVT prophylaxis Subcu heparin CODE STATUS Full Plan to discharge home tomorrow Admission and Anticipated Discharge Date Admission Date: May 20, 2020 Anticipated date of discharge: 05/23/20 Subjective follow up visit for abdominal pain /depression: Pain appears to be more stated today , says feels much better, No recurrence of abdominal pain, nausea vomiting, no GI symptoms Able to sleep well last night, patient feels much more comfortable after discussing with psychiatry, agreeable for adjusting antidepressant meds/Effexor, and outpatient follow-up with psychotherapy/psychiatry No fever or chills, no cough no shortness of breath no dyspnea on exertion, no gait disturbance currently independent in ADLs Review of Systems Review of Systems: All systems reviewed & are unremarkable except as noted in HPI & below Gastrointestinal: no abdominal pain, no nausea and no vomiting Physical Exam Constitutional: WD/WN, vitals as above Eyes: PERRL, conjunctivae normal, anicteric sclerae ENMT: external ear and nose normal, oropharynx normal Neck: trachea midline, no thyromegaly Respiratory: normal respiratory effort, lungs clear to auscultation Cardiovascular: RRR, no murmur, no edema Gastrointestinal (Abdomen): Percussion/Palpation: abdomen soft; abdomen nontender Musculoskeletal: no cyanosis or clubbing, extremities motor strength 5/5 Skin: no rashes, warm and dry Neurologic: PERRL, EOMI, accommodation nl, no face palsy, no dysarthria Psychiatric: A+Ox3, euthymic affect Results & Data Results & Data ([facility]) Vital Signs (Past 12 Hours) Vital Signs Temp Pulse Resp BP Pulse Ox 05/22/20 15:16 36.8 C 89 18 158/75 H 95 05/22/20 07:32 36.8 C 85 18 138/76 97 (1) Depression Depression Type: unspecified Qualified Code(s): F32.9 - Major depressive disorder, single episode, unspecified
[2020-05-23 07:03] LABS: BUN Creatinine Ratio 23.8 (10-20); Calcium 8.5 mg/dl (8.5-10.1); Est GFR (African American) 59.7; Est GFR (Non-African American) 51.5; Magnesium 1.4 mg/dl (1.8-2.4); Potassium 3.1 mmol/L (3.5-5.1)
[2020-05-23] MEDS: ASPIRIN 81 MG ECTAB PO SCH (08:02)
[2020-05-23] MEDS: LORATADINE 10 MG TAB PO SCH (08:02)
[2020-05-23] MEDS: MULTIVITAMIN TAB PO SCH (08:03)
[2020-05-23] MEDS: VALSARTAN 80 MG TAB PO SCH (08:03)
[2020-05-23] MEDS: INSULIN GLARGINE SOLOSTAR 100 UNITS/ML 3 ML PEN SC SCH (08:05)
[2020-05-23] MEDS: hydroCHLOROthiazide 25 MG TAB PO SCH (08:06)
[2020-05-23] MEDS: ADVANCED PROBIOTIC 1250 MG CAPSULE PO SCH (08:06)
[2020-05-23] MEDS: INSULIN ASPART 100 UNITS/ML 3 ML PEN SC SCH ×2 (08:10→14:04)
[2020-05-23] MEDS ORDERED: POTASSIUM CHLORIDE CRTAB 20 MEQ TABCR PO STA (08:41)
[2020-05-23] MEDS ORDERED: VENLAFAXINE HCL XR 150 MG CAPXR PO ONE (09:00)
[2020-05-23] MEDS: HEPARIN SOD 5,000 UNIT/0.5 ML VIAL SQ SCH (09:59)
[2020-05-23] MEDS: MAGNESIUM SULFATE / D5W 1 GM/100 ML BAG IV SCH ×2 (10:10→12:15)
--- NOTE | 2020-05-23 12:46 | Discharge Summary ---
Date of Service May 23, 2020 Admission HPI Per Admitting Provider She is an 80-year-old female with significant past medical history of diabetes type 2 with neuropathy, hypertension and depression has been complaining of mild attack of migraine for the last 3 weeks. She did not have any other associated symptoms with the headache. She has been complaining of epigastric discomfort and has had bouts of nausea, vomiting and diarrhea about 2 days ago. She has not been eating or drinking enough because she has loss of appetite and has been getting generally weak. Denies any fever and/or chills, denies any cough and/or shortness of breath. Denies any problem with her urine. She did not feel right this morning on waking up and decided to come to the emergency room and still complains to have some epigastric discomfort and minimal headache without any other symptoms. She was tested negative for Covid. Admission Exam Per Admitting Provider Physical Exam: Lying in bed comfortably but anxious Constitutional: well developed and well nourished; no acute distress and not ill appearing Eyes: PERRL, conjunctivae normal, anicteric sclerae ENMT: external ear and nose normal, oropharynx normal Neck: trachea midline, no thyromegaly Respiratory: no respiratory distress Auscultation: lungs clear to auscultation bilaterally Cardiovascular: regular rate and regular rhythm Heart Sounds: no murmur Extremities: + edema (Trace edema bilaterally) Gastrointestinal: normal bowel sounds; abdomen not distended Percussion/Palpation: + abdomen tender (Mildly tender epigastrium) and abdomen soft Musculoskeletal: No acute arthritis in any joint Neurologic: Alert, awake and oriented x3. Generally weak but no focal sensory and motor deficit appreciated Psychiatric: A+Ox3, euthymic affect Lymphatic: no cervical or axillary lymphadenopathy Principal Diagnosis Viral gastroenteritis: Resolved Depression Type 2 diabetes Hypertension Discharge Exam Constitutional: WD/WN, vitals as above Eyes: PERRL, conjunctivae normal, anicteric sclerae ENMT: external ear and nose normal, oropharynx normal Neck: trachea midline, no thyromegaly Respiratory: normal respiratory effort, lungs clear to auscultation Cardiovascular: RRR, no murmur, no edema Gastrointestinal: abdomen soft; abdomen nontender Musculoskeletal: no cyanosis or clubbing, extremities motor strength 5/5 Skin: no rashes, warm and dry Neurologic: PERRL, EOMI, accommodation nl, no face palsy, no dysarthria Psychiatric: A+Ox3, euthymic affect Discharge Data Allergies Allergy/AdvReac Type Severity Reaction Status Date / Time Sulfa (Sulfonamide Allergy Mild RASH Verified 05/20/20 14:25 Antibiotics) Consultations 05/20/20 13:35 ED Decision to Admit Stat 05/21/20 21:09 Consult Psychiatry Routine Ordered Studies 05/20/20 11:13 CT head/brain wo con Stat 05/20/20 12:54 CT abd pelvis wo con Stat XR chest 2V PA/lateral CLINICAL HISTORY: Pneumonia COMPARISON STUDY: 03/26/2018 FINDINGS: The cardiac and mediastinal contours remain stable. There is no failure. There is no lobar consolidation. There is minor basilar atelectasis. There is stable mild thickening of the right minor fissure. No pleural effusions are visualized.[ IMPRESSION: No active disease in the chest. ACT 112: Negative or not required by law. Electronically signed by: Srinivas Juares M.D. 05/20/2020 3:32 PM Dictated: 05/20/20 1531Transcribed: 05/20/[address] SCAN OF THE ABDOMEN AND PELVIS WITHOUT CONTRAST CLINICAL HISTORY: Generalized abdominal pain COMPARISON STUDY: No previous studies for comparison. TECHNIQUE: CT scan of the abdomen and pelvis was performed from the lung bases to the proximal femurs. Images are reviewed in the axial, sagittal, and coronal planes. IV contrast was not administered for this examination. A dose lowering technique was utilized adhering to the principles of ALARA. CT DOSE: 1224.22 mGy.cm FINDINGS: Lower chest: There are mild basilar atelectatic changes Liver: The unenhanced liver is normal in size, contour, and attenuation. There is no intrahepatic biliary ductal dilatation. Gallbladder: Surgically absent Spleen: Normal in size and attenuation. Pancreas: Unremarkable. Adrenal glands: Unremarkable. Kidneys: No renal, ureteral, or bladder calculi are visualized. Bowel: There are no transition zones indicate bowel obstruction. There is colonic diverticulosis. There is no evidence of acute diverticulitis. The appendix appears normal. Peritoneum: There is no intraperitoneal free air or abdominal ascites. There is a tiny fat-containing umbilical hernia Vasculature: The abdominal aorta is normal in course and caliber. Adenopathy: None. Pelvic viscera: The uterus is surgically absent. Skeletal structures: No destructive osseous lesions are seen. IMPRESSION: 1. No evidence of bowel obstruction. No evidence of free air 2. No renal, ureteral, or bladder calculi identified 3. Normal appendix. No evidence of acute diverticulitis 4. Surgically absent gallbladder and uterus. ACT 112: Negative or not required by law. Electronically signed by: Srinivas Juares M.D. 05/20/2020 1:32 PM Dictated: 05/20/20 1330Transcribed: 05/20/[address] head/brain wo con CLINICAL HISTORY: Severe headache COMPARISON STUDY: 03/26/2018 TECHNIQUE: Axial CT of the brain is performed from the vertex to the skull base. IV contrast was not administered for this examination. A dose lowering technique was utilized adhering to the principles of ALARA. CT DOSE: FINDINGS: No intra or extra-axial mass lesions are visualized. There is no CT evidence of acute cortical infarction. There is no evidence of midline shift. There is no acute hemorrhage. No calvarial fractures are visualized. There are patchy white matter hypodensities likely on a small vessel basis. There is no evidence of pathologic ventricular dilatation. There is no evidence of acute sinusitis IMPRESSION: No acute intracranial findings ACT 112: Negative or not required by law. Electronically signed by: Srinivas Juares M.D. 05/20/2020 1:29 PM Dictated: 05/20/20 1328Transcribed: 05/20/20 1328 Hospital Course (1) Nausea vomiting and diarrhea: Symptom has completely resolved, Likely secondary to viral gastroenteritis/ Reading diet, no further episode of loose stool or diarrhea, no nausea stool for c diff negative (2) Gastroenteritis: As above symptoms has resolved tolerating diet (3) Uncontrolled diabetes mellitus: Blood sugar noted to be high at 383 insulin SSI Hemoglobin A1c noted to be more than 8, appreciate input from upholstery parts sorter and pharmacy for glycemic management (4) KATE (acute kidney injury): Resolved renal failure improved to baseline with IV fluids Likely secondary to dehydration IVF discontinued Hypokalemia: Possible secondary to hydrochlorothiazide Given oral replacement repeat BMP in a.m. (5) Hypertension: - Pt does endorse depressive symptoms for at least 2 years, but does admit symptoms have worsened in the setting of increased isolation related to COVID-19 pandemic as well as the of her sister 4 weeks prior to this admission. Pt is agreeable with referral for an outpatient therapist, which will likely be very beneficially in offering an environment to process grief and develop new coping strategies that she can utilize during the pandemic to manage anxiety and depressive symptoms. Will have liaison follow-up with ROIs and referral process as able. - Pt was also agreeable with titration of venlafaxine to better target continued depressive symptoms, again, predating of sister 4 weeks ago. Will offer supplemental 75mg dose of venlafaxine this afternoon, 150mg (home dose) tomorrow, and then increase to 187.5mg daily thereafter. Pt can follow-up with her PCP for continued prescriptions, of determine if referral to an outpatient psychiatrist would be preferred at this time. Pt is denying SI/HI, SIB, and any acute safety concerns. No criteria is present at this time to suggest inpatient psychiatric treatment is necessary. bp stable depression /crying spell : pt reports of feeling depressed , with crying spell lost her sister recently Having hard time dealing with grief . Appreciate input from psychiatry, Antidepressant, Effexor dose adjusted, was increased to 150 mg in a.m. and then increased to 187.5 mg daily after that, Patient will need to follow-up with family physician outpatient psychiatric, psychotherapist Patient is now in stable mood, talking with family members over phone, smiling, more pleasant, To discharge her home tomorrow (6) Depression: Treatment as outlined above DVT prophylaxis Subcu heparin CODE STATUS Full Plan to discharge home tomorrow (7) Diabetes: Total Time Total Time Spent Total Time Spent (In Minutes): 35 minutes Total Time Includes: Examination of the Patient, Discharge Planning, Medication Reconciliation, Communication With Other Providers and Other Discharge Plan Discharge Items Patient Disposition: Home - Self-Care Reason For Visit: GASTROENTERITIS,HYPERGLYCEMIA Discharge Diagnosis: Viral gastroenteritis: Resolved Depression Type 2 diabetes Hypertension Activity: Resume your previous activity Non-emergency contact: Primary Care Provider Call non-emergency contact if: you have any medication questions Follow-up/Referrals: Guanakito Burgos MD [Primary Care Provider] - 05/30/20 (Date & Time 05/30/2020 11:20 AM Provider Guanakito Burgos MD [facility] ) Diet: Carb Consistent or DM2 and Heart Healthy Ambulatory Orders: Basic Metabolic Panel (Routine) Timeframe: 20200530 Location: Determined by Patient Ordered By: Moni Perkins Magnesium (Routine) Timeframe: 20200530 Location: Determined by Patient Ordered By: Moni Perkins Addearline Attending Provider Instructions: your blood sugar has not been well controlled Need to follow-up with family physician, diabetic clinic for further monitoring and adjustment of your diabetic meds Please have referral to follow-up with psychiatry, psychotherapy for depression treatment you are discharged on insulin Lantus 18 U sub cutaneous take it before breakfast please check your blood sugar before breakfast -goal fasting blood sugar 100-120 do not take insulin if blood sugar less than 100 keep log of your blood sugars and bring to next physician visit repeat Hb a1 c in 3 months you will need yearly diabetic eye exam and diabetic feet exam in each visit repeat lab : basic metabolic panel , Mg level on 05/30/19 Antidepressant Med venlafaxine dose increased to 187.5 mg Daily ( take 150 mg 1 tablet and 37.5 mg 1 tablet together ) take with food . please follow up with Psychiatry /psycho therapy in clinic Pending Studies at Discharge: No Stand-Alone Forms: My [facility]pr[employer], Smoking Cessation Medications and DC Order Prescriptions: New venlafaxine [Effexor XR] 150 mg capsule,extended release 24hr 150 mg PO DAILY Qty: 30 RF: 0 venlafaxine [Effexor XR] 37.5 mg capsule,extended release 24hr 37.5 mg PO QAM 30 Days Qty: 30 RF: 0 Lantus Solostar U-100 Insulin 100 unit/mL (3 mL) insulin pen 18 unit subcut DAILY Qty: 15 RF: 3 (DME) insulin admin supplies Insulin Pen See Rx Instructions .ROUTE .MEDSUPPLY Qty: 1 RF: 3 (DME) insulin admin supplies Insulin Pen See Rx Instructions .ROUTE .MEDSUPPLY Qty: 1 RF: 3 Continued ondansetron HCl 4 mg tablet 4 mg PO Q8H PRN (Reason: Nausea) RF: 0 valsartan-hydrochlorothiazide 160-12.5 mg Tablet 1 tab PO QAM RF: 0 aspirin 81 mg Tablet,Delayed Release (Dr/Ec) 81 mg PO QAM RF: 0 glipizide 2.5 mg Tablet Extended Release 24hr 2.5 mg PO QAM RF: 0 multivitamin with minerals [Multiple Vitamin-Minerals] Tablet 1 tab PO QAM RF: 0 loratadine 10 mg Tablet 10 mg PO DAILY RF: 0 metformin 500 mg Tablet Extended Release 24hr 1,000 mg PO QAM RF: 0 Discontinued venlafaxine 75 mg capsule,extended release 24hr 75 mg PO QAM RF: 0 Jardiance 25 mg Tablet 25 mg PO QAM RF: 0 Discharge Orders: Discharge Order (Routine); Ordered 05/23/20 Ordered By: Rick Ochoa Admission Data Admit Date/Time: 05/20/20 14:50 Attending Provider: Rick Ochoa Admit Provider: Daria Wang Primary Care Provider: Guanakito Burgos Other Providers: Daria Wang ; Corinne Baeza ; Moni ePrkins Other Interventions: Discharge Summary Assessment (RN) Last Done: 05/23/20 15:39
[2020-05-24] MEDS ORDERED: VENLAFAXINE HCL XR 37.5 MG CAPXR PO SCH (09:00)
== END 2020-05-23 16:26 | disposition home or self-care (01) | DRG 392 ==
LOC: ED 10:27 → SUATTDRO 14:50 → 2N 14:50

== ENCOUNTER 2024-08-10 10:32 | Inpatient (IN) ==
--- NOTE | 2024-08-10 10:37 | Emergency Department Note ---
Impression & Plan ST elevation (STEMI) myocardial infarction ED Provider Note NAME: ASHKAN AGUDELO AGE: 84 SEX: F : 1940 ARRIVES VIA: Walk-In INFORMANT: Patient, ED PROVIDER(S): Negro Parmar MD CHIEF COMPLAINT: Chest pain MEDICAL DECISION MAKING: Patient presents due to concern for chest pains. Initial EKG does show concern for STEMI. Heart alert was activated. IV was established and blood work was obtained patient was ordered full dose aspirin Brilinta 180 and heparin bolus and drip ordered. I did speak the on-call hospitalist service also did discuss the patient's case with Dr. Salgado who was present at the patient's bedside prior to being taken to the Educational Psychologist. Blood work shows a normal white count hemoglobin and platelet count. Kidney function is unremarkable. Initial troponin of 3899. Critical Care: I have personally spent 35 minutes of critical care time in direct management of this patient. This includes bedside care, interpretation of diagnostic studies, and testing, discussion with consultants, patient, and family members, and other require inpatient management activities. This 35 minutes is in excess of all separately billable procedures. Discussion w/ other healthcare providers: Dr. Salgado formation testing operator Amrita Wing PA-C and Dr. James inpatient medicine service Prior /Outside records reviewed: None Differential diagnosis: Cardiac ischemia, aortic dissection, pulmonary embolism, pneumothorax, pneumonia, pericarditis, myocarditis, GERD, cholecystitis, pancreatitis, musculoskeletal, as well as other pathologies were considered. Diagnostics, as interpreted by me: ECG: STEMI noted, difficult to ascertain if P waves present but ventricular rate of 67 with normal QRS duration, normal axis, significant elevations noted in V3 and V4 with depressions in the lateral and high lateral leads. Cardiac monitoring: An order was placed for continuous cardiac monitoring. The monitor shows a rate of 67 with regular rhythm. Patient was placed on pulse oximetry Medical decision rules: None Imaging studies: None HPI: Patient presents due to concern for chest pains. The patient states it was its at its worst last evening and lasted maybe several hours but subsequently the patient was able to fall asleep after taking some Tylenol and applying a heating pad to her back. Patient states that this morning as she was "getting going" the patient had worsening pain. Left-sided describes it as a numbness type feeling. It does radiate to the bilateral arms. The patient states that when she arrived here today by private vehicle patient states that she parked in a handicap parking spot as she knew she would not be able to tolerate the walk from the parking lot into the emergency department. Patient states her current pain is about a 1 out of 10. The patient did not take anything for this morning. Patient denies any prior history of known heart disease. She does follow with Dr. Derian Royal. She denies any alcohol tobacco or drug use. No falls or trauma no upper respiratory symptoms or leg swelling. Patient states she did not take her morning medications. PAST MEDICAL HISTORY: See Below PAST SURGICAL HISTORY: See Below SOCIAL HISTORY: See Below HOME MEDICATIONS: See Below ALLERGIES: See Below VITALS: See Below PHYSICAL EXAMINATION: GENERAL: NAD, non-toxic. Hard of hearing EYE EXAM: Normal conjunctiva. PERRL, no anisocoria and EOM's grossly intact w/o pain. OROPHARYNX: Moist mucus membranes, grossly normal dentition. NECK: Trachea midline, no stridor. Supple, no nuchal rigidity, no adenopathy, non-tender. No signs of meningismus. FROM of the neck with good chin to chest and neck extension. LUNGS: Clear to auscultation. Normal chest wall mechanics. HEART: NSR, no MRG. ABDOMEN: Abdomen soft, non-tender, no masses, no rebound or guarding. BACK: No CVA TTP. SKIN: No rashes and no bruising. UPPER EXTREMITIES: Upper extremities are grossly normal. LOWER EXTREMITIES: Grossly normal, no edema. Negative Homans' sign bilaterally. NEURO EXAM: A&O x3, cranial nerves II-XII grossly intact, normal speech, moves all 4 extremities. Past Med/Surg History Problem List (Updated 08/10/24 @ 18:22 by Negro Parmar MD) ST elevation (STEMI) myocardial infarction (Acute) Coronary artery disease Dyslipidemia Diabetes mellitus, type II Elevated LFTs CKD (chronic kidney disease), stage III STEMI (ST elevation myocardial infarction) Hypomagnesemia Hypokalemia Uncontrolled diabetes mellitus Gastroenteritis Nausea vomiting and diarrhea Diarrhea (Acute) Abdominal pain (Acute) Dizzy (Acute) KATE (acute kidney injury) (Acute) No pertinent past surgical history Hypertension (Chronic) Diabetes (Chronic) Depression (Chronic) Diabetic peripheral neuropathy (Chronic) Hypoxia (Acute) Bronchitis (Acute) Surgical History History of cholecystectomy History of hysterectomy Social History Smoking Status: Never smoker Second Hand Exposure: Yes; Do You Dip or Chew Tobacco: No; Hx Alcohol Use: No Hx Substance Use: No Preferred Language: Venezuelan Communication Ability: Effective Net C Developer Required: No Beliefs That Will Affect Care: None Current Living Situation: Family Current Living Situation Comment: lower level of house, son and daughter in law live in top level Feels Safe at Home: Yes Assistive Devices: None Allergies Allergies Allergy/AdvReac Type Severity Reaction Status Date / Time Sulfa (Sulfonamide Allergy Mild RASH Verified 05/20/20 14:25 Antibiotics) amoxicillin [From Augmentin] AdvReac Diarrhea Verified 08/10/24 13:15 clavulanic acid AdvReac Diarrhea Verified 08/10/24 13:15 [From Augmentin] Home Meds Home Medications Medication Instructions Recorded Confirmed multivitamin with minerals 1 tab PO QAM 03/26/18 08/10/24 (Multiple Vitamin-Minerals tablet) valsartan 160 1 tab PO QAM 03/26/18 08/10/24 mg-hydrochlorothiazide 12.5 mg tablet gabapentin 100 mg capsule 200 mg PO HS 03/06/23 08/10/24 venlafaxine 150 mg 150 mg PO DAILY 03/06/23 08/10/24 capsule,extended release 24 hr (Effexor XR) metformin 500 mg tablet,extended 1,000 mg PO DAILY 08/10/24 08/10/24 release 24 hr Results & Data (ED) Vital Signs Vital Signs - 24 hr 08/10/24 10:38 08/10/24 10:44 08/10/24 10:46 Pulse Rate 84 80 Pulse Rate [Apical] Pulse Rhythm [Apical] Pulse Strength [Apical] Respiratory Rate 16 Respiratory Effort / Characteristics Non-Labored Spontaneous Respiratory Depth Normal Respiratory Pattern Blood Pressure 75/30 L Blood Pressure [Right Arm] Blood Pressure Mean 45 Blood Pressure Mean [Right Arm] Blood Pressure Position [Right Arm] Pulse Oximetry 98 Oxygen Delivery Method Room Air Room Air Sepsis Recent Fever Within 48 Hours No Sepsis New/Unexplained Change in Mental Status No Sepsis Action Taken by Nursing No Action Required 08/10/24 10:47 08/10/24 12:31 Pulse Rate Pulse Rate [Apical] 64 90 Pulse Rhythm [Apical] Regular Pulse Strength [Apical] Normal Respiratory Rate 16 18 Respiratory Effort / Characteristics Non-Labored Spontaneous Non-Labored Respiratory Depth Normal Normal Respiratory Pattern Regular Regular Blood Pressure Blood Pressure [Right Arm] 158/87 H 136/99 Blood Pressure Mean Blood Pressure Mean [Right Arm] 110 111 Blood Pressure Position [Right Arm] Semi-fowlers Lying Pulse Oximetry 95 95 Oxygen Delivery Method Room Air Room Air Sepsis Recent Fever Within 48 Hours Sepsis New/Unexplained Change in Mental Status Sepsis Action Taken by Care Home Medications Current Medication List: was personally reviewed by me Laboratory Data Attestation: I reviewed the patient's lab results. 08/10/24 13:54 08/10/24 10:45 Lab Results 08/10/24 08/10/24 08/10/24 Range/Units 10:45 11:28 11:51 WBC 7.28 (4.8-10.8) K/ul RBC 3.86 L (4.20-5.40) M/uL Hgb 12.1 (12.0-16.0) g/dl Hct 37.0 (37.0-47.0) % MCV 95.9 (80.0-100.0) fL MCH 31.3 (25.0-34.0) pg MCHC 32.7 (32.0-36.0) g/dL RDW Std Deviation 42.7 (36.4-46.3) fL RDW Coeff of Dawn 12.2 (11.5-14.5) % Plt Count 149 (130-400) K/uL MPV 13.0 H (9.4-12.4) fL Immature Gran % (Auto) 0.4 % Neut % (Auto) 64.9 % Lymph % (Auto) 26.2 % [place] % (Auto) 6.2 % Eos % (Auto) 1.8 % Baso % (Auto) 0.5 % Neut # (Auto) 4.72 (1.40-6.50) K/uL Lymph # (Auto) 1.91 (1.20-3.40) K/uL [place] # (Auto) 0.45 (0.11-0.59) K/uL Eos # (Auto) 0.13 (0.00-0.50) K/uL Baso # (Auto) 0.04 (0.00-0.20) K/uL Immature Gran # (Auto) 0.03 (0.01-0.20) K/uL PT 11.6 (9.0-12.0) Seconds INR 1.1 (0.9-1.1) APTT 25 (21-31) Seconds PTT Ratio 0.9 Activ Coag Time Kaolin 320 H 158 H (94-140) SECONDS Sodium 140 (136-145) mmol/L Potassium 4.1 (3.5-5.1) mmol/L Chloride 102 (98-107) mmol/L Carbon Dioxide 25 (21-32) mmol/L Anion Gap 13 H (3-11) BUN 36 H (6-23) mg/dl Creatinine 1.42 H (0.6-1.2) mg/dl Est Cr Clr Drug Dosing 21.9 ml/min eGFR 36.25 BUN/Creatinine Ratio 25.4 H (10-20) Glucose 217 H (70-99(Fasting)) mg/dl Calcium 9.5 (8.6-10.3) mg/dl Magnesium 1.5 L (1.7-2.4) mg/dl Total Bilirubin 0.7 (0.2-1.0) mg/dl AST 122 H (13-39) U/L ALT 131 H (7-52) U/L Alkaline Phosphatase 161 H (34-104) U/L Total Creatine Kinase 218 H (26-192) U/L Troponin I High Sens 3899.2 H* (0-14) pg/ml B-Natriuretic Peptide 1900 H (0-100) pg/ml Total Protein 6.5 (6.0-8.3) gm/dl Albumin 4.3 (3.4-5.0) gm/dl Globulin 2.2 L (2.5-4.0) gm/dl Albumin/Globulin Ratio 2.0 (0.9-2) Lipase 30 (11-82) U/L TSH 4.069 (0.300-4.500) uIu/ml 08/10/24 Range/Units 12:07 WBC (4.8-10.8) K/ul RBC (4.20-5.40) M/uL Hgb (12.0-16.0) g/dl Hct (37.0-47.0) % MCV (80.0-100.0) fL MCH (25.0-34.0) pg MCHC (32.0-36.0) g/dL RDW Std Deviation (36.4-46.3) fL RDW Coeff of Dawn (11.5-14.5) % Plt Count (130-400) K/uL MPV (9.4-12.4) fL Immature Gran % (Auto) % Neut % (Auto) % Lymph % (Auto) % [place] % (Auto) % Eos % (Auto) % Baso % (Auto) % Neut # (Auto) (1.40-6.50) K/uL Lymph # (Auto) (1.20-3.40) K/uL [place] # (Auto) (0.11-0.59) K/uL Eos # (Auto) (0.00-0.50) K/uL Baso # (Auto) (0.00-0.20) K/uL Immature Gran # (Auto) (0.01-0.20) K/uL PT (9.0-12.0) Seconds INR (0.9-1.1) APTT (21-31) Seconds PTT Ratio Activ Coag Time Kaolin 245 H (94-140) SECONDS Sodium (136-145) mmol/L Potassium (3.5-5.1) mmol/L Chloride (98-107) mmol/L Carbon Dioxide (21-32) mmol/L Anion Gap (3-11) BUN (6-23) mg/dl Creatinine (0.6-1.2) mg/dl Est Cr Clr Drug Dosing ml/min eGFR BUN/Creatinine Ratio (10-20) Glucose (70-99(Fasting)) mg/dl Calcium (8.6-10.3) mg/dl Magnesium (1.7-2.4) mg/dl Total Bilirubin (0.2-1.0) mg/dl AST (13-39) U/L ALT (7-52) U/L Alkaline Phosphatase (34-104) U/L Total Creatine Kinase (26-192) U/L Troponin I High Sens (0-14) pg/ml B-Natriuretic Peptide (0-100) pg/ml Total Protein (6.0-8.3) gm/dl Albumin (3.4-5.0) gm/dl Globulin (2.5-4.0) gm/dl Albumin/Globulin Ratio (0.9-2) Lipase (11-82) U/L TSH (0.300-4.500) uIu/ml Administered Medications Sodium Chloride (Nss) 1,000 mls @ 80 mls/hr IV .[id number] STEVAN Stop: 08/11/24 16:44 Last Admin: 08/10/24 17:38 Dose: 80 mls/hr Documented By: GIL Miscellaneous (Icu Protocol For Hyperglycemia) 1 each N/A ACHS STEVAN Stop: 08/12/24 16:29 Last Admin: 08/10/24 16:19 Dose: Not Given Documented By: GIL Venlafaxine HCl (Venlafaxine Hcl Xr 150 Mg Capxr) 150 mg PO DAILY STEVAN Stop: 09/09/24 14:44 Last Admin: 08/10/24 15:34 Dose: 150 mg Documented By: GIL Discontinued Medications Aspirin (Aspirin Chew 324 Mg) Confirm Administered Dose 324 mg .ROUTE .STK-MED ONE Stop: 08/10/24 10:45 Last Admin: 08/10/24 10:54 Dose: Not Given Documented By: NANDO Aspirin (Aspirin Chew 324 Mg) 324 mg PO NOW STA Stop: 08/10/24 10:46 Last Admin: 08/10/24 10:54 Dose: 324 mg Documented By: NANDO Fentanyl Citrate (Fentanyl Citrate Pf 100 Mcg/2 Ml Vial) Confirm Administered Dose 100 mcg .ROUTE .STK-MED ONE Stop: 08/10/24 11:07 Last Increment: 08/10/24 12:06 Dose: 50 mcg Documented By: CEDRIC Heparin Sodium (Porcine) (Heparin Sod (Porcine) 1000 Unit/Ml) 1 units IV NOW ONE Stop: 08/10/24 11:02 Last Admin: 08/10/24 15:26 Dose: Not Given Documented By: GIL Heparin Sodium (Porcine) (Heparin (Porcine) 1000 Unit/Ml 10 Ml (Educational Psychologist Use Only)) Confirm Administered Dose 10,000 units .ROUTE .STK-MED ONE Stop: 08/10/24 11:07 Last Admin: 08/10/24 12:06 Dose: 8,000 units Documented By: CEDRIC Heparin Sodium/Dextrose (Heparin Iv Adult Wt-Based Low-Dose W/ Initial Bolus Protocol) 1 each IV NOW STA; Protocol Stop: 08/10/24 10:46 Last Admin: 08/10/24 15:25 Dose: Not Given Documented By: GIL Heparin Sodium/Sodium Chloride (Heparin In Nss Infusion 1000 Unit/500 Ml (2 U/Ml) Bag) Confirm Administered Dose 3,000 units IV .STK-MED ONE Stop: 08/10/24 11:07 Last Admin: 08/10/24 12:06 Dose: 3,000 units Documented By: CEDRIC Heparin Sodium/Dextrose (Heparin 50893 Unit/500 Ml D5w) 25,000 units in 500 mls @ 12 mls/hr IV .Q24H STEVAN; Protocol Stop: 09/09/24 11:14 Last Admin: 08/10/24 15:58 Dose: Not Given Documented By: GIL Sodium Chloride (Nss) 1,000 mls @ 999 mls/hr IV .Q1H1M ONE Stop: 08/10/24 11:49 Last Admin: 08/10/24 15:25 Dose: Not Given Documented By: GIL Magnesium Sulfate/Dextrose (Magnesium Sulfate / D5w) 1 gm in 100 mls @ 50 mls/hr IV ONE ONE Stop: 08/10/24 15:50 Last Infusion: 08/10/24 17:34 Dose: Infused Documented By: Admin: 08/10/24 15:30 Dose: 50 mls/hr Documented By: GIL Ioversol (Optiray 350) Confirm Administered Dose 1 ml .ROUTE .STK-MED ONE Stop: 08/10/24 11:07 Last Admin: 08/10/24 12:06 Dose: 215 ml Documented By: MEME Lidocaine HCl (Lidocaine 1% Local 20 Ml Vial) Confirm Administered Dose 1 ml .ROUTE .STK-MED ONE Stop: 08/10/24 11:14 Last Admin: 08/10/24 15:26 Dose: Not Given Documented By: GIL Midazolam HCl (Midazolam Hcl 1 Mg/Ml 2ml Vial) Confirm Administered Dose 2 mg .ROUTE .STK-MED ONE Stop: 08/10/24 11:07 Last Increment: 08/10/24 12:06 Dose: 1 mg Documented By: CEDRIC Nicardipine HCl (Nicardipine 2,000 Mcg/20 Ml Syr) Confirm Administered Dose 2,000 mcg .ROUTE .STK-MED ONE Stop: 08/10/24 11:07 Last Admin: 08/10/24 12:07 Dose: 2,000 mcg Documented By: MEME Nitroglycerin/Dextrose (Nitroglycerin/D5w 100mcg/Ml 20ml Syr) Confirm Administered Dose 2,000 mcg .ROUTE .STK-MED ONE Stop: 08/10/24 11:07 Last Admin: 08/10/24 12:07 Dose: 2,000 mcg Documented By: MEME Ticagrelor (Ticagrelor 90 Mg Tab) Confirm Administered Dose 180 mg .ROUTE .STK- MED ONE Stop: 08/10/24 10:58 Last Admin: 08/10/24 12:08 Dose: 180 mg Documented By: CEDRIC Discharge Plan Visit Data Chief Complaint: Chest Pain Stated Complaint: CHEST PAIN ED Provider: Negro Parmar Discharge Problem: ST elevation (STEMI) myocardial infarction Patient Disposition: Admitted As Inpatient Discharge Instructions Interventions: ED Discharge Assessment Last Done: 08/10/24 11:02 Discharge Problem: ST elevation (STEMI) myocardial infarction Qualifiers: Involved coronary artery: LAD coronary artery Qualified Code(s): I21.02 - ST elevation (STEMI) myocardial infarction involving left anterior descending coronary artery
[2024-08-10] MEDS: ASPIRIN CHEW 324 MG ONE (10:54)
[2024-08-10] MEDS: ASPIRIN CHEW 324 MG PO STA (10:54)
--- NOTE | 2024-08-10 11:00 | Pre Anesthesia Assessment ---
Date of Service August 10, 2024 Pre Sedation Assessment Vital Signs Pulse Pulse Resp BP BP Pulse Ox O2 Del Method 08/10/24 10:47 64 16 158/87 H 95 Room Air 08/10/24 10:46 Room Air 08/10/24 10:44 80 08/10/24 10:38 84 16 75/30 L 98 Room Air Cardiovascular RRR, no murmur, no edema Respiratory normal respiratory effort, lungs clear to auscultation Pre-Sedation Airway Assessment Smoking Status: Never smoker Mallampati 3 ASA 4 Notes The planned sedation has been discussed with the patient. Informed Consent was obtained. I have identified the patient, determined the appropriateness of sedation and have assessed the patient immediately prior to the procedure. All medicine(s) and interventions are by my order.
[2024-08-10 11:07] LABS: Basophils # (auto) 0.04 K/uL (0.00-0.20); Basophils % (auto) 0.5 %; Eosinophils # (auto) 0.13 K/uL (0.00-0.50); Eosinophils % (auto) 1.8 %; Hemoglobin 12.1 g/dl (12.0-16.0); Immature Granulocytes # (auto) 0.03 K/uL (0.01-0.20); Immature Granulocytes % (auto) 0.4 %; Lymphocytes # (auto) 1.91 K/uL (1.20-3.40); Lymphocytes % (auto) 26.2 %; Mean Corpuscular Hemoglobin 31.3 pg (25.0-34.0); Mean Corpuscular Hgb Conc 32.7 g/dL (32.0-36.0); Mean Corpuscular Volume 95.9 fL (80.0-100.0); Monocytes # (auto) 0.45 K/uL (0.11-0.59); Monocytes % (auto) 6.2 %; Neutrophils # (auto) 4.72 K/uL (1.40-6.50); Neutrophils % (auto) 64.9 %; Platelet Count 149 K/uL (130-400); RDW Coefficient of Variation 12.2 % (11.5-14.5); RDW Standard Deviation 42.7 fL (36.4-46.3); Red Blood Count 3.86 M/uL (4.20-5.40); White Blood Count 7.28 K/ul (4.8-10.8)
[2024-08-10 11:37] LABS: INR 1.1 (0.9-1.1); Partial Thromboplastin Ratio 0.9; Partial Thromboplastin Time 25 Seconds (21-31); Prothrombin Time 11.6 Seconds (9.0-12.0)
[2024-08-10 12:01] LABS: Thyroid Stimulating Hormone 4.069 uIu/ml (0.300-4.500)
[2024-08-10 12:04] LABS: Albumin Level 4.3 gm/dl (3.4-5.0); Bilirubin,Total 0.7 mg/dl (0.2-1.0); Calcium 9.5 mg/dl (8.6-10.3); Magnesium 1.5 mg/dl (1.7-2.4); Potassium 4.1 mmol/L (3.5-5.1)
[2024-08-10] MEDS: HEPARIN (PORCINE) 1000 UNIT/ML 10 ML (CATH LAB USE ONLY) ONE (12:06)
[2024-08-10] MEDS: MIDAZOLAM HCL 1 MG/ML 2ML VIAL ONE (12:06)
[2024-08-10] MEDS: fentaNYL citrate PF 100 MCG/2 ML VIAL ONE (12:06)
[2024-08-10] MEDS: OPTIRAY 350 ONE (12:06)
[2024-08-10] MEDS: niCARdipine 2,000 MCG/20 ML SYR ONE (12:07)
[2024-08-10] MEDS: NITROGLYCERIN/D5W 100MCG/ML 20ML SYR ONE (12:07)
[2024-08-10] MEDS: TICAGRELOR 90 MG TAB ONE (12:08)
[2024-08-10] MEDS ORDERED: ATROPINE SULFATE 0.1 MG/ML 10ML SYR IV PRN (12:10)
[2024-08-10] MEDS ORDERED: ONDANSETRON INJ 2 MG/ML 2 ML VIAL IV PRN (12:10)
[2024-08-10] MEDS ORDERED: ACETAMINOPHEN 325 MG TAB PO PRN (12:10)
--- NOTE | 2024-08-10 12:10 | Post Anesthesia Assessment ---
Date of Service August 10, 2024 Post Sedation Assessment Vital Signs Pulse Pulse Resp BP BP Pulse Ox O2 Del Method 08/10/24 10:47 64 16 158/87 H 95 Room Air 08/10/24 10:46 Room Air 08/10/24 10:44 80 08/10/24 10:38 84 16 75/30 L 98 Room Air Recovery Score Activity: Moves 4 extremities Respiration: Deep Breath/Cough Circulation: +/-20% PreAnes Value Consciousness: Fully Awake Oxygen Saturation: > 92% On Room Air Discharge Sedation Level of Care: Fast Track Phase II Post Sedation Plan On clinical assessment, the patient appears to have tolerated the sedation without complications. Patient is recovering as anticipated. Patient will continue to be monitored by nursing and may be discharged when sedation discharge criteria are met per below protocol. Upon Completions of procedure up to 15 minutes continue every 5 minute vital signs and the P.A.R. score; then discharge to a Phase I or Fast Track to Phase II per the following guidelines: * Discharge Patient to appropriate Phase II area if PAR is 8 or greater or return to pre- procedure baseline. The post - procedure orders will be as directed. * If PAR score is less than 8 or not return to pre-procedure baseline then jose quintero will follow Phase I monitoring till PAR is reached for Phase II. The Phase I may be done in procedure room or may call to secure a Phase I area. * If naloxone or flumazenil are used for reversal, hold in Phase I for continued monitoring from when last reversal dose was given for a minimum of 60 minutes or longer pending the nurse and/or physician discretion of patient condition before discharge to Phase II. Please call the Sedation Physician to re-evaluate and complete post-note for discharge to Phase II area. Do NOT discharge from procedure sedation or Phase 1 until post- sedation evaluation note is complete by procedure /sedation MD Sedation Discharge Instructions to be given to the patient at discharge to home. [facility] [place] Procedure Codes (Charges) Indication for Procedure Indication for procedure: STEMI Sedation/Anesthesia Procedure 1: Sedation/Anesthesia: 27497 Mod Sedation by the same physician;Init15 Min Child Age 5 & Up (initial 15 min, start 1110) Total Sedation Time (minutes): 59 Procedure 2: Sedation/Anesthesia: 24337 Mod Sedation by the same physician; Ea [id number] Minutes (additional 44 min. end 1209) Total Sedation Time (minutes): 59
[2024-08-10 12:11] LABS: BUN Creatinine Ratio 25.4 (10-20); Creatinine Clr Calc Pharmacy 21.9 ml/min; Globulin 2.2 gm/dl (2.5-4.0); Total Protein 6.5 gm/dl (6.0-8.3)
--- NOTE | 2024-08-10 13:51 | History & Physical Report ---
<Statement entered by Fransisco Chaney, DO - 08/10/24 17:52> I have seen and examined the patient and have discussed the case with the advance practice provider. I have reviewed the advanced practitioner's documentation, and I agree with, and take responsibility for that plan of care. Patient seen and evaluated in ICU after cardiac cath. No further chest pain. Patient reports she feels a little bit short of breath. O2 sat 100% on room air. CV: S1-S2 regular Lungs: Clear, no rales Patient with known anxiety, shared with GURWINDER that her anxiety often manifests as shortness of breath. Discussed plan of care as outlined below I spent a total of 18 minutes coordinating, documenting, and providing care for this patient excluding time spent by another provider/QHP. Date of Service August 10, 2024 Assessment & Plan (1) STEMI (ST elevation myocardial infarction): (2) CKD (chronic kidney disease), stage III: (3) Hypomagnesemia: (4) Elevated LFTs: (5) Diabetes mellitus, type II: (6) Hypertension: (7) Dyslipidemia: (8) Depression: Plan: Patient is 84-year-old female with PMH HTN, dyslipidemia, DM II, CKD III, depression, anxiety, neuropathy, who had presented to ER today with complaint of chest pain that had started yesterday. #STEMI In ER EKG reported consistent with STEMI and heart alert was called. Initial HS troponin: 3899. In ER was given 324 mg aspirin, Brilinta 180 mg and started on IV heparin. She was taken to cardiac r and d lab technician S/P ENIO to RCA and LAD Repeat EKG at 13:20 sinus rhythm, LBBB ICU post cath for close observation Trend troponin Echo On IV heparin Cardiology recommends aspirin 81mg daily, metoprolol tartrate 25mg BID, Brillinta 90mg BID, atorvastatin 40mg daily Cardiology has resumed pt's home valsartan/HCTZ at lower dose 80mg/12.5mg (home dose was 160/12.5mg) Patient with prior history of statin intolerance. Will need to monitor Cardiology consult CXR ordered to assess for effusion/congestion CBC, BMP, lipid panel, A1c, magnesium labs in am #CKD III Cr: 1.4. Was 1.3 on 06/10/23 Monitor renal functions #Elevated LFTs T bili: 0.7. AST: 122, ALT: 131, Alk Phos: 161 (Previously normal LFTs in 06/10/23) Monitor LFTs #Hypomagnesium ma.5 Replace and monitor #DM II A1c: 7.0 on 02/05/24 Hold home metformin ICU glycemic protocol #HTN Cardiology has resumed pt's home valsartan/HCTZ at lower dose 80mg/12.5mg (home dose was 160/12.5mg) #Dyslipidemia atorvastatin started #Anxiety, Depression Continue venlafaxine Admit ICU Wants CPR, defibrillation, medications but does not want intubation or ventilator per discussion with pt Follows with Dr Burgos for routine care Pt was seen and care coordinated with Dr Chaney. See addendum I spent a total of 70 minutes reviewing notes, outpatient records, labs, medication, coordinating, documenting and providing care for this patient excluding time spent in the performance of separately billed services and excluding time spent by another provider/QHP. Admission and Anticipated Discharge Date Admission Date: August 10, 2024 History of Present Illness Chief Complaint: CP Primary Care Provider: Guanakito Burgos MD Patient is 84-year-old female with PMH HTN, dyslipidemia, DM II, CKD III, depression, anxiety, neuropathy, who had presented to ER today with complaint of chest pain that had started yesterday. In ER EKG consistent with STEMI and heart alert was called. Initial HS troponin: 3899. She was given 324 mg aspirin, Brilinta 180 mg and ordered IV heparin. She was taken to cardiac r and d lab technician and is s/p ENIO to RCA and LAD. Patient seen in ICU and reports that she is feeling very anxious. She reports chronic anxiety and with her anxiety she feels SOB. She states she is feeling anxious and SOB and reports feels like she usually does when she is anxious. Denies any current CP. She states has a lot of stress. Earlier today had diaphoresis with the chest pain but denies any since. Denies fever/chills, N/V/D/C, WALKER, dizziness, syncope, vision changes, palpitations, cough, sore throat, rhinorrhea, abdominal pain, increased paresthesias, extremity weakness, extremity edema, rashes, urinary symptoms. Allergies Allergy/AdvReac Type Severity Reaction Status Date / Time Sulfa (Sulfonamide Allergy Mild RASH Verified 05/20/20 14:25 Antibiotics) amoxicillin [From Augmentin] AdvReac Diarrhea Verified 08/10/24 13:15 clavulanic acid AdvReac Diarrhea Verified 08/10/24 13:15 [From Augmentin] Home Medications Medication Instructions Recorded Confirmed Type multivitamin with minerals 1 tab PO QAM 03/26/18 08/10/24 History (Multiple Vitamin-Minerals tablet) valsartan 160 1 tab PO QAM 03/26/18 08/10/24 History mg-hydrochlorothiazide 12.5 mg tablet gabapentin 100 mg capsule 200 mg PO HS 03/06/23 08/10/24 History venlafaxine 150 mg 150 mg PO DAILY 03/06/23 08/10/24 History capsule,extended release 24 hr (Effexor XR) metformin 500 mg tablet,extended 1,000 mg PO DAILY 08/10/24 08/10/24 History release 24 hr Past Med/Surg History Problem List Coronary artery disease Dyslipidemia Diabetes mellitus, type II Elevated LFTs CKD (chronic kidney disease), stage III STEMI (ST elevation myocardial infarction) Hypomagnesemia Hypokalemia Uncontrolled diabetes mellitus Gastroenteritis Nausea vomiting and diarrhea Diarrhea (Acute) Abdominal pain (Acute) Dizzy (Acute) KATE (acute kidney injury) (Acute) No pertinent past surgical history Hypertension (Chronic) Diabetes (Chronic) Depression (Chronic) Diabetic peripheral neuropathy (Chronic) Hypoxia (Acute) Bronchitis (Acute) Surgical History History of cholecystectomy History of hysterectomy Social History Smoking Status: Never smoker Second Hand Exposure: Yes; Do You Dip or Chew Tobacco: No; Hx Alcohol Use: No Hx Substance Use: No Preferred Language: Kyrgyz Communication Ability: Effective Data Conversion Developer Required: No Beliefs That Will Affect Care: None Current Living Situation: Family Current Living Situation Comment: lower level of house, son and daughter in law live in top level Feels Safe at Home: Yes Assistive Devices: None Review of Systems Review of Systems: All systems reviewed & are unremarkable except as noted in HPI & below Physical Exam Physical Exam: General: no acute distress, WDWN Head: normocephalic, atraumatic Eyes: conjunctiva non-injected, anicteric ENT: normal inspection external ears, nose, mucous membranes moist Neck: supple, trachea midline Lungs: clear, no respiratory distress, no wheezing/rhonchi/rales CV: RRR, no murmur, no pretibial edema Abd: normal BS, soft, non-tender Ext: no cyanosis, no calf tenderness, right groin with pressure dressing intact and dry Neuro: A&O x 3, no focal deficits noted, anxious affect Skin: warm, dry Results & Data Results & Data Vital Signs (Past 12 Hours) Vital Signs Temp Pulse Pulse Resp BP BP Pulse Ox 08/10/24 13:44 36.6 C 93 H 18 161/95 H 98 08/10/24 13:00 89 18 150/81 H 100 08/10/24 12:45 88 18 152/94 H 95 08/10/24 12:31 90 18 136/99 95 08/10/24 10:47 64 16 158/87 H 95 08/10/24 10:46 08/10/24 10:44 80 08/10/24 10:38 84 16 75/30 L 98 O2 Del Method 08/10/24 13:44 Room Air 08/10/24 13:00 Room Air 08/10/24 12:45 Room Air 08/10/24 12:31 Room Air 08/10/24 10:47 Room Air 08/10/24 10:46 Room Air 08/10/24 10:44 08/10/24 10:38 Room Air Laboratory Results Short CBC 08/10/24 08/10/24 Range/Units 10:45 13:54 WBC 7.28 8.14 (4.8-10.8) K/ul Hgb 12.1 11.5 L (12.0-16.0) g/dl Hct 37.0 34.4 L (37.0-47.0) % Plt Count 149 141 (130-400) K/uL BMP 08/10/24 10:45 Sodium 140 Potassium 4.1 Chloride 102 Carbon Dioxide 25 BUN 36 H Creatinine 1.42 H Glucose 217 H Calcium 9.5 Cardiac Enzymes 08/10/24 Range/Units 10:45 Total Creatine Kinase 218 H (26-192) U/L Liver Function 08/10/24 Range/Units 10:45 Total Bilirubin 0.7 (0.2-1.0) mg/dl AST 122 H (13-39) U/L ALT 131 H (7-52) U/L Alkaline Phosphatase 161 H (34-104) U/L Albumin 4.3 (3.4-5.0) gm/dl (8) Depression Depression Type: unspecified Qualified Code(s): F32.9 - Major depressive disorder, single episode, unspecified
[2024-08-10 14:34] LABS: Basophils # (auto) 0.04 K/uL (0.00-0.20); Basophils % (auto) 0.5 %; Eosinophils # (auto) 0.04 K/uL (0.00-0.50); Eosinophils % (auto) 0.5 %; Hematocrit (blood only) 34.4 % (37.0-47.0); Hemoglobin 11.5 g/dl (12.0-16.0); Immature Granulocytes # (auto) 0.02 K/uL (0.01-0.20); Immature Granulocytes % (auto) 0.2 %; Lymphocytes # (auto) 0.96 K/uL (1.20-3.40); Lymphocytes % (auto) 11.8 %; Mean Corpuscular Hemoglobin 31.7 pg (25.0-34.0); Mean Corpuscular Hgb Conc 33.4 g/dL (32.0-36.0); Mean Corpuscular Volume 94.8 fL (80.0-100.0); Mean Platelet Volume 13.1 fL (9.4-12.4); Monocytes % (auto) 3.7 %; Neutrophils # (auto) 6.78 K/uL (1.40-6.50); Neutrophils % (auto) 83.3 %; Platelet Count 141 K/uL (130-400); Red Blood Count 3.63 M/uL (4.20-5.40); White Blood Count 8.14 K/ul (4.8-10.8)
--- NOTE | 2024-08-10 15:06 | Critical Care Consultation ---
Date of Consultation August 10, 2024 Assessment & Plan (1) STEMI (ST elevation myocardial infarction): Impression: 57-year-old female presents to the ICU status post heart catheterization. Neuro - RASS GOAL 0 Avoid sedating medications Multimodal pain management. APAP PRN pain/fever Cardiac - Post-PCI EKG pending MAP goal > 65mmHg Cardiology consultation DAPT in AM, BB and ACEI as hemodynamics allow TTE pending Start statin A1c and lipid panel pending Respiratory - SpO2 > 92% IS/Flutter HOB 30 GI - Diet: Advance ELVA RENAL/LYTES - Replete electrolytes as indicated Maintain net even to net negative ENDO - BG 140-180 per [facility] guidelines ISS if needed while inpatient A1c pending HEME - DAPT as above ID - No acute concerns LINES/TUBES/DRAINS - PIV DVT PROPHYLAXIS - Reassess tomorrow (2) Dyslipidemia: (3) Diabetes mellitus, type II: History of Present Illness Reason for Consultation: Status post PCI secondary to STEMI Attending Physician: Fransisco Chaney, History of Present Illness Patient is 84-year-old female with PMH HTN, dyslipidemia, DM II, CKD III, depression, anxiety who had presented to ER today with complaint of chest pain that had started yesterday. In ER EKG consistent with STEMI and heart alert was called. Initial HS troponin: 3899. She was given 324 mg aspirin, Brilinta 180 mg and started on IV heparin. She was taken to cardiac cath lab radiological technologist and is s/p drug-eluting stent placement by Dr. Salgado with cardiology During my evaluation patient reports mild difficulty sleeping and feels like her heart rate is fast. She reports she has been under a lot of stress over the last several months with having to moving major life events. Not withstanding, hopeful to be able to sit up soon: Patient is supine after right femoral artery closure. Allergies Allergy/AdvReac Type Severity Reaction Status Date / Time Sulfa (Sulfonamide Allergy Mild RASH Verified 05/20/20 14:25 Antibiotics) amoxicillin [From Augmentin] AdvReac Diarrhea Verified 08/10/24 13:15 clavulanic acid AdvReac Diarrhea Verified 08/10/24 13:15 [From Augmentin] Home Medications Medication Instructions Recorded Confirmed Type multivitamin with minerals 1 tab PO QAM 03/26/18 08/10/24 History (Multiple Vitamin-Minerals tablet) valsartan 160 1 tab PO QAM 03/26/18 08/10/24 History mg-hydrochlorothiazide 12.5 mg tablet gabapentin 100 mg capsule 200 mg PO HS 03/06/23 08/10/24 History venlafaxine 150 mg 150 mg PO DAILY 03/06/23 08/10/24 History capsule,extended release 24 hr (Effexor XR) metformin 500 mg tablet,extended 1,000 mg PO DAILY 08/10/24 08/10/24 History release 24 hr Patient History Surgical History (Updated 08/10/24 @ 14:32 by Gaby Coronado PA-C) History of cholecystectomy History of hysterectomy Social History Smoking Status: Never smoker Second Hand Exposure: Yes; Do You Dip or Chew Tobacco: No; Hx Alcohol Use: No Hx Substance Use: No Preferred Language: Spanish Communication Ability: Effective Granite Installer Required: No Beliefs That Will Affect Care: None Current Living Situation: Family Current Living Situation Comment: lower level of house, son and daughter in law live in top level Feels Safe at Home: Yes Safety Concerns: Feels Safe At This Time Assistive Devices: None Physical Exam Physical Exam: General: Alert. nontoxic. Skin: Warm, dry, Head: Atraumatic Ears, nose, mouth and throat: airway patent Cardiovascular: Normal peripheral perfusion Respiratory: no respiratory distress Gastrointestinal: Non distended Musculoskeletal: No deformity Results & Data Results & Data Vital Signs (Past 12 Hours) Vital Signs Temp Pulse Pulse Resp BP BP Pulse Ox 08/10/24 14:35 96 H 18 165/91 H 99 08/10/24 14:34 94 H 08/10/24 14:21 96 H 18 98 08/10/24 14:15 168/98 H 08/10/24 14:00 160/105 H 08/10/24 14:00 98 H 22 100 08/10/24 13:59 08/10/24 13:44 36.6 C 93 H 18 161/95 H 98 08/10/24 13:00 89 18 150/81 H 100 08/10/24 12:45 88 18 152/94 H 95 08/10/24 12:31 90 18 136/99 95 08/10/24 10:47 64 16 158/87 H 95 08/10/24 10:46 08/10/24 10:44 80 08/10/24 10:38 84 16 75/30 L 98 O2 Del Method 08/10/24 14:35 Room Air 08/10/24 14:34 08/10/24 14:21 08/10/24 14:15 08/10/24 14:00 08/10/24 14:00 Room Air 08/10/24 13:59 Room Air 08/10/24 13:44 Room Air 08/10/24 13:00 Room Air 08/10/24 12:45 Room Air 08/10/24 12:31 Room Air 08/10/24 10:47 Room Air 08/10/24 10:46 Room Air 08/10/24 10:44 08/10/24 10:38 Room Air Critical Care Results & Data Vital Signs (Past 12 Hours) Vital Signs Temp Pulse Pulse Resp BP BP Pulse Ox 08/10/24 14:35 96 H 18 165/91 H 99 08/10/24 14:34 94 H 08/10/24 14:21 96 H 18 98 08/10/24 14:15 168/98 H 08/10/24 14:00 160/105 H 08/10/24 14:00 98 H 22 100 08/10/24 13:59 08/10/24 13:44 36.6 C 93 H 18 161/95 H 98 08/10/24 13:00 89 18 150/81 H 100 08/10/24 12:45 88 18 152/94 H 95 08/10/24 12:31 90 18 136/99 95 08/10/24 10:47 64 16 158/87 H 95 08/10/24 10:46 08/10/24 10:44 80 08/10/24 10:38 84 16 75/30 L 98 O2 Del Method 08/10/24 14:35 Room Air 08/10/24 14:34 08/10/24 14:21 08/10/24 14:15 08/10/24 14:00 08/10/24 14:00 Room Air 08/10/24 13:59 Room Air 08/10/24 13:44 Room Air 08/10/24 13:00 Room Air 08/10/24 12:45 Room Air 08/10/24 12:31 Room Air 08/10/24 10:47 Room Air 08/10/24 10:46 Room Air 08/10/24 10:44 08/10/24 10:38 Room Air Lab & Micro Results (Past 24 Hours) RBC 3.63 M/uL (4.20-5.40) L 08/10/24 WBC 8.14 K/ul (4.8-10.8) 08/10/24 Hgb 11.5 g/dl (12.0-16.0) L 08/10/24 Hct 34.4 % (37.0-47.0) L 08/10/24 MCV 94.8 fL (80.0-100.0) 08/10/24 MCH 31.7 pg (25.0-34.0) 08/10/24 MCHC 33.4 g/dL (32.0-36.0) 08/10/24 RDW Standard Deviation 42.0 fL (36.4-46.3) 08/10/24 RDW Coefficient of Variation 12.0 % (11.5-14.5) 08/10/24 Plt Count 141 K/uL (130-400) 08/10/24 MPV 13.1 fL (9.4-12.4) H 08/10/24 Neutrophils (%) (Auto) 83.3 % 08/10/24 Lymphocytes (%) (Auto) 11.8 % 08/10/24 Monocytes # (Auto) 0.30 K/uL (0.11-0.59) 08/10/24 Eosinophils # (Auto) 0.04 K/uL (0.00-0.50) 08/10/24 Immature Granulocyte % (Auto) 0.2 % 08/10/24 Neutrophils # (Auto) 6.78 K/uL (1.40-6.50) H 08/10/24 Lymphocytes # (Auto) 0.96 K/uL (1.20-3.40) L 08/10/24 Monocytes # (Auto) 0.30 K/uL (0.11-0.59) 08/10/24 Eosinophils # (Auto) 0.04 K/uL (0.00-0.50) 08/10/24 Basophils # (Auto) 0.04 K/uL (0.00-0.20) 08/10/24 Immature Granulocyte # (Auto) 0.02 K/uL (0.01-0.20) 5 Na 140 mmol/L (136-145) 08/10/24 K 4.1 mmol/L (3.5-5.1) 08/10/24 Cl 102 mmol/L (98-107) 08/10/24 CO2 25 mmol/L (21-32) 08/10/24 Anion Gap 13 (3-11) H 08/10/24 BUN 36 mg/dl (6-23) H 08/10/24 Creatinine 1.42 mg/dl (0.6-1.2) H 08/10/24 BUN/Creatinine Ratio 25.4 (10-20) H 08/10/24 Glu 217 mg/dl (70-99(Fasting)) H 08/10/24 Ca 9.5 mg/dl (8.6-10.3) 08/10/24 Total Bilirubin 0.7 mg/dl (0.2-1.0) 08/10/24 AST 122 U/L (13-39) H 08/10/24 ALT 131 U/L (7-52) H 08/10/24 Alkaline Phosphatase 161 U/L (34-104) H 08/10/24 TP 6.5 gm/dl (6.0-8.3) 08/10/24 Albumin 4.3 gm/dl (3.4-5.0) 08/10/24 Globulin 2.2 gm/dl (2.5-4.0) L 08/10/24 Albumin/Globulin Ratio 2.0 (0.9-2) 08/10/24 Mg 1.5 mg/dl (1.7-2.4) L 08/10/24 10:45 Calcium Level 9.5 mg/dl (8.6-10.3) 08/10/24 10:45 Prothromb Time International Ratio 1.1 (0.9-1.1) 08/10/24 10:4 5 RT Ventilator Mngmt (Last Documented) Ventilator Ordered Settings Respiratory Rate 18 08/10/24 1 4:35 Ventilator - PT Measurements Respiratory Rate 18 Coding Level of Care Code 40533 IN/OBS CONSULT LVL 3,45M Diagnoses STEMI (ST elevation myocardial infarction) I21.3 Dyslipidemia E78.5 Diabetes mellitus, type II E11.9
--- NOTE | 2024-08-10 15:19 | Cardiac Catheterization ---
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 Cardiac Status Clinical evaluation leading to the procedure CAD Presenation: STEMI Anginal Classification: CCS IV Heart Failure: No Cardiogenic Shock within 24 Hours: No Cardiac Arrest within 24 Hours: No Imaging Studies Past 6 Months: No STEMI OR Non-STEMI Symptom Onset Date: 08/09/24 Symptom Onset Time: 18:00 Coronary Anatomy Dominant: Right Left Main (% Stenosis): Normal LAD (% Stenosis): Proximal (95%) and Mid (40%) D1 (% Stenosis): Normal Circumflex (% Stenosis): Proximal (Less than 30%) and Mid (40%) OM1 (% Stenosis): Normal OM2 (% Stenosis): Proximal (80%, tortuous) OM3 (% Stenosis): Normal L PL1 (% Stenosis): Normal (Small and tortuous) RCA (% Stenosis): Proximal (99% with thrombus) and Mid (50 to 70%) R PDA (% Stenosis): Proximal (100%, TONIO 0) R PL1 (% Stenosis): Proximal (100%, TONIO 0) Diagnostic Physicians Name: Ander Salgado MD, PhD Closure Device Percutaneous Entry Location: Femoral Closure Device: Angio-Seal Recommendations: Medical Therapy and/or Counseling and PCI without planned CABG PCI Indication: PCI for STEMI - Unstable First Noted: First EKG Lesion Segment Name: Proximal RCA Culprit Artery: Yes Stenosis Prior to Rx (%): 99% Chronic Total Occlusion: No Pre-Procedure TONIO Flow: 2 Previously Treated Lesion: No Lesion Complexity: Non-High/Non-C Lesion Length (mm): 14 Thrombus Present: Yes Bifurcation Lesion: No Guidewire Across Lesion: Yes Lesion #2 Segment Name: Proximal LAD Culprit Artery: No Stenosis Prior to Rx (%): 95% Chronic Total Occlusion: No Pre-Procedure TONIO Flow: 3 Previously Treated Lesion: No Lesion Complexity: Non-High/Non-C Lesion Length (mm): 25 Thrombus Present: No Bifurcation Lesion: No Guidewire Across Lesion: Yes Intraprocedure Events Significant Disection: No Perforation: No Cardiac Cath Procedure Full Procedure Date August 10, 2024 Pre-Procedure Diagnosis Pre-Procedure Diagnosis: STEMI AUC Score AUC Score: 09 Post-Procedure Diagnosis Post-Procedure Diagnosis: Severe CAD and Successful PCI Procedure(s) Performed Procedure(s) Performed: Coronary Angiography, Drug Eluting Stent and Ultrasound Guided Vascular Access Agent Producer Adner Salgado MD, PhD Estimated Blood Loss Estimated Blood Loss: 10 cc Medication(s) Medication(s): Fentanyl, Heparin, Lidocaine 1%, Nitroglycerin and Versed Summary of Findings Brief description: Patient was brought to the cardiac catheterization suite where she was shaved and prepped in a sterile fashion. Sedated using IV Versed and fentanyl. Soft tissues of the right wrist were anesthetized using 2 mL of 1% Xylocaine. We attempted to access the artery using ultrasound for guidance but despite good visualization we were unable to access the lumen of the artery. Decision was made to forego further attempts from the radial artery approach. We turned our attention to the femoral artery approach. Soft tissue the right groin were anesthetized using 10 mL of 1% Xylocaine. Using the ultrasound for guidance (image saved), the right femoral artery was accessed and a 6 Georgian femoral artery sheath was placed. All catheters were advanced and exchanged over a 0.035 J-tip wire. Right coronary angiography was performed in orthogonal views with a 6 Georgian JR4 guide catheter. Decision was made to proceed immediately with PCI. Patient was provided anticoagulation with IV heparin. The ACT was checked intermittently throughout the case and additional heparin provided as needed to maintain therapeutic anticoagulation. A BMW reversal guidewire was advanced through the guide catheter and under fluoroscopic guidance positioned distally in the RCA. Predilatation of the proximal lesion using a 2.0 x 12 mm trek balloon at 12 neetu followed by a second inflation to 14 neetu. A 2.25 x 18 mm Max drug-eluting stent was advanced and positioned over the lesion where he was initially deployed at 12 neetu. A second inflation was performed to 15 neetu. Color Corrector angio was performed and the balloon was removed. A 2.25 x 12 mm NC Jerry balloon was then advanced and positioned within the stented segment. Initial inflation distally at 12 neetu. Balloon was then moved and the proximal segment was inflated to 18 neetu. Finally, the intervening segment was postdilated to 15 neetu. The noncompliant balloon was then removed. Patient was provided intracoronary nitroglycerin and then final angiographic evaluation was performed. Note: Because of the relatively small caliber of the RCA the guide catheter did occlude the vessel. We therefore needed to pull back on the guide catheter intermittently to allow blood flow between inflations, etc. Right coronary catheter was removed. We then proceeded to complete left coronary angiography. A 5 Georgian JL 4 diagnostic catheter was used to engage the left main coronary. Coronary angiography was performed. Decision was made to proceed with PCI of the proximal LAD lesion. ACT was again checked and additional heparin was provided as necessary. A 6 Georgian EBU 3.0 guide catheter was used to engage the left main coronary. A BMW dorsal guidewire was advanced through the guide catheter and positioned distally in the LAD. Lesion was predilated with a 2.5 x 12 mm trek balloon with 3 inflations at 8 neetu. A 2.5 x 30 mm Copan drug-eluting stent was then inserted covering just beyond the ostium of the LAD, and then across the lesion to cover it fully. This was deployed initially at 12 neetu with a second inflation up to 14 neetu. Stent balloon was removed and angiography was performed. The guide catheter was then removed after final angiography was performed. Limited right femoral artery angiography was performed to evaluate for closure. Findings were favorable, therefore, the femoral artery sheath was exchanged for a 6 Georgian Angio-Seal closure device. This was deployed in the recommended fashion. We obtained immediate hemostasis and the patient remained hemodynamically stable. She was then transferred to the holding area awaiting admission to the ICU. This ended the case. Coronary angiography findings: RCA-medium caliber and probably dominant. Proximally there is a 99% stenosis with thrombus and no more than TONIO II flow distally. The mid RCA has diffuse mild disease and then a focal area of 50 to 70% stenosis. The RCA appears to bifurcate into a small posterolateral and small PDA distally and these are each 100% occluded just after their ostia. PCI of RCA-0% residual stenosis post PCI. No evidence of dissection or perforation post PCI TONIO-3 flow post PCI The posterolateral regains much of its flow post PCI and does have a moderate stenosis. The PDA has modestly improved flow improving on each shot. It has proximal severe disease but is too small for PCI. NDD-iowgf-bobbjca short vessel with no more than mild luminal irregularities. Bifurcates into the LAD and circumflex. LAD-this is large caliber and transapical. Gives a large septal branch and a small branching first diagonal. Its proximal segment has a long eccentric 95 to 99% stenosis. Mid segment has up to 40% stenosis and distally there is no significant disease. LCx-this is a large-caliber. Travels in the AV groove. Proximally there is mild less than 30% stenosis. Gives a small caliber OM1 with diffuse mild disease early in its course. The mid segment has focal 40% stenosis. This is followed by a large caliber branching OM 2. This vessel is very tortuous and proximally there is up to 80% stenosis. Medially after this is a large branching OM 3 which has mild luminal irregularities. Distally the AV groove ve ssel becomes medium in caliber terminating in a small posterolateral branch with tortuosity. Appears to provide [id number] collateralization for the distal rPDA PCI of proximal LAD-0% residual stenosis post PCI No evidence of dissection or perforation post PCI TONIO-3 flow post PCI Summary: 1. Severe multivessel coronary artery disease. Culprit for inferior VT is proximal RCA stenosis. The proximal LAD lesion also appears high risk although not the acute culprit. The proximal OM2 lesion and vessel were of lower risk. 2. Successful PCI with implantation of a drug-eluting stent in the proximal RCA. Good angiographic results with the distal vessel having significant disease but too small for PCI. Additional PCI of the proximal LAD for high risk lesion was successful using a single long drug-eluting stent. 3. Patient will be on dual antiplatelet therapy including aspirin 81 mg daily and Brilinta 90 mg p.o. twice daily. We will initiate guideline directed medical therapy for secondary prevention of coronary disease including high intensity statin therapy, beta-xiao, and continuation of her angiotensin receptor xiao. 4. Recommend echocardiogram to further evaluate cardiac function. Hemodynamics Rest Ao:: 148/66 mmHg Final Ao: 146/81 mmHg LV: Not performed Recommendations Recommendations: Medical Therapy and/or Counseling and PCI without planned CABG Radiation Exposure (mGy) 1489 mGy, fluoroscopy time 15.9 minutes Contrast (mls) 215 cc Anesthesia 1 mg Versed, 50 mcg fentanyl IV. Start 1110, and 1209 Procedural Complication(s) None Disposition ICU I attest to the content of the Intraoperative Record and any orders documented therein. Any exceptions are noted below. [facility] Card Cath Procedure Codes Cardiac Catheterization Procedure 1: Cardiovascular Cath Procedures: 90148 Coronaries Therapeutic Services & Ancillary Procedure 1: Cardiovascular Tx and Anc Procedures: 98752 Ultrasonic Guidance Vascular Access Moderate Sedation Procedure 1: Sedation/Anesthesia: 39814 Mod Sedation by the same physician;Init15 Min Child Age 5 & Up (Initial 15 minutes, start 1110) Procedure 2: Sedation/Anesthesia: 04510 Mod Sedation by the same physician; Ea [id number] Minutes (Additional 44 minutes, end time 1209) Stenting Procedure 1: Cardiovascular Stent Procedures: 64195 Perc transluminal revascularization of acute sub/total occl, aMI (RCA) Procedure 2: Cardiovascular Stent Procedures: 98272 [facility] transcatheter placement of intracoronary stent(s), with ang (LAD) PG Care Time/CCT Total # of Minutes Spent Total Time Spent with Patient: Total time spent is greater than 50% in coordination of care (as documented) at patient's floor/unit and/or counseling patient:
[2024-08-10] MEDS: SODIUM CHLORIDE 0.9% 1,000 ML IV ONE (15:25)
[2024-08-10] MEDS: Heparin IV Adult Wt-Based Low-Dose w/ INITIAL Bolus Protocol IV STA (15:25)
[2024-08-10] MEDS: HEPARIN SOD (PORCINE) 1000 UNIT/ML IV ONE (15:26)
[2024-08-10] MEDS: LIDOCAINE 1% LOCAL 20 ML VIAL ONE (15:26)
[2024-08-10] MEDS: MAGNESIUM SULFATE / D5W 1 GM/100 ML BAG IV ONE (15:30)
[2024-08-10] MEDS: VENLAFAXINE HCL XR 150 MG CAPXR PO SCH (15:34)
[2024-08-10] MEDS: HEPARIN 25000 UNIT/500 ML D5W 25,000 UNITS/500 ML BAG IV SCH (15:58)
[2024-08-10 16:09] LABS: Estimated Average Glucose 146 mg/dl; Hemoglobin A1C 6.7 % (4.5-5.6)
[2024-08-10] MEDS: ICU Protocol for HYPERglycemia SCH (16:19)
--- NOTE | 2024-08-10 16:34 | Cardiology Consultation ---
Date of Consultation August 10, 2024 Assessment & Plan (1) STEMI (ST elevation myocardial infarction): Acute thrombotic stenosis from plaque rupture in the proximal RCA. The RCA is actually a dominant vessel but relatively small. We were able to place a small caliber drug-eluting stent proximally. She does have severe disease in the branch vessels but these are too small for PCI. She will remain on dual antiplatelet therapy with aspirin 81 mg daily and Brilinta 90 mg p.o. twice daily for up to 2 years as tolerated. She will also begin guideline directed medical therapy for secondary prevention as below. We are ordering an echocardiogram to see if there is a change in her EF compared to prior echo or new valvular heart disease. Typically she would stay in the ICU for at least 24 hours and if no complications she could be ready for discharge as early as 48 hours post IA. I do have some concerns about placement because of her advanced age and I also encouraged her to participate in cardiac rehab once she has been discharged. (2) Coronary artery disease: Severe multivessel. PCI of RCA completed for acute IA. PCI of proximal LAD completed because of high risk lesion. The proximal OM 2 lesion is technically more difficult and with less anticipated benefit for PCI. At this time were not going to attempt PCI but if she develops chest discomfort as an outpatient then we could reconsider at that time. Her blood pressure has been well above target. We have initiated guideline directed medical therapy with; aspirin 81 mg daily, metoprolol to tartrate 25 mg p.o. twice daily, valsartan 80 mg daily in combination with HCTZ, and atorvastatin at 40 mg daily. Unfortunately, I do not have access to her outpatient [facility] records so I do not have her most updated medical regimen or any previous intolerances to medication other than the antibiotics listed. We will titrate her current regimen as needed to achieve clinical targets. Also, her pertinent comorbid disease such as diabetes, dyslipidemia, and hypertension need to be aggressively treated. (3) Dyslipidemia: Patient is high risk (diabetes and coronary disease). High intensity statin therapy is recommended. Beginning a atorvastatin 40 mg daily. We do need a fasting lipid panel to determine our target LDL reduction. (4) Hypertension: Blood pressure is well above target. We are starting metoprolol to tartrate 25 mg p.o. twice daily and valsartan 80 mg daily in combination with HCTZ 12.5 mg daily. We will continue to titrate and may also consider the addition of a long-acting nitrate given her small vessel distal disease which could still cause some anginal symptoms. (5) CKD (chronic kidney disease), stage III: We used 215 cc of IVP contrast. Will need to follow her renal function caref ully over the next 48 hours. Gentle IV fluid resuscitation during that time as tolerated by her EF. She should be able to handle the low-dose valsartan and HCTZ but again we will need to follow. History of Present Illness Reason for Consultation: Acute inferior ST elevation IA Attending Physician: Fransisco Chaney, DO History of Present Illness Pleasant 84-year-old diabetic female developed chest discomfort last evening. Was fairly strong at first but got better and then she went to bed. This morning, as she was going about her morning activities she had recurrence of the chest discomfort and therefore decided to seek medical attention. In the emergency department she was found to have evidence of acute inferior ST elevation IA by EKG. She was treated with medication and had significant resolution of her symptoms. I was asked to see her emergently as a "heart alert". On my arrival she had no further chest pain. However, her EKG continued to show evidence of RCA territory ischemia and after discussion with the patient we decided to proceed immediately to the cardiac catheterization suite. Diagnostic coronary angiography revealed severe multivessel coronary disease with the culprit for her current admission being the proximal RCA lesion. This was treated with single drug-eluting stent. She also had severe proximal LAD stenosis which was considered high risk to leave alone. We therefore proceeded with additional PCI of the LAD using a long drug-eluting stent with good angiographic results. She is now admitted to the ICU for further workup and management. In reviewing her records it appears that she has not had good compliance with medical recommendations. It sounds as if her living situation is such that she is on her own at age 84 and it is possible that she is not remembering to take her medications as directed. Of course, this is of some concern given that we just gave her stents which will require adherence to her antiplatelet regimen. Fortunately, she has no ongoing chest pain, heaviness, or tightness at this time. Her granddaughter is present at the bedside. It is my understanding that the children do not live locally. She denies any syncope, near syncope, orthopn ea, PND, racing heartbeat, palpitations, or edema. No other complaints or concerns at this time. Allergies Allergy/AdvReac Type Severity Reaction Status Date / Time Sulfa (Sulfonamide Allergy Mild RASH Verified 05/20/20 14:25 Antibiotics) amoxicillin [From Augmentin] AdvReac Diarrhea Verified 08/10/24 13:15 clavulanic acid AdvReac Diarrhea Verified 08/10/24 13:15 [From Augmentin] Home Medications Medication Instructions Recorded Confirmed Type multivitamin with minerals 1 tab PO QAM 03/26/18 08/10/24 History (Multiple Vitamin-Minerals tablet) valsartan 160 1 tab PO QAM 03/26/18 08/10/24 History mg-hydrochlorothiazide 12.5 mg tablet gabapentin 100 mg capsule 200 mg PO HS 03/06/23 08/10/24 History venlafaxine 150 mg 150 mg PO DAILY 03/06/23 08/10/24 History capsule,extended release 24 hr (Effexor XR) metformin 500 mg tablet,extended 1,000 mg PO DAILY 08/10/24 08/10/24 History release 24 hr Patient History Surgical History History of cholecystectomy History of hysterectomy Social History Smoking Status: Never smoker Second Hand Exposure: Yes; Do You Dip or Chew Tobacco: No; Hx Alcohol Use: No Hx Substance Use: No Preferred Language: Tanzanian Communication Ability: Effective Fire Control Mechanic Required: No Beliefs That Will Affect Care: None Current Living Situation: Family Current Living Situation Comment: lower level of house, son and daughter in law live in top level Feels Safe at Home: Yes Assistive Devices: None Review of Systems Review of Systems: Negative except as per HPI Physical Exam Constitutional: WD/WN, vitals as above (Elderly, frail-appearing.) Eyes: Extraocular muscles intact. Sclera are anicteric. ENMT: [place] is pink and dry Neck: No JVD Respiratory: Clear to auscultation bilaterally. No wheezing, rhonchi, or rales. Cardiovascular: Regular rate and rhythm. S4 gallop. I do not appreciate any rubs or murmurs at this time. No edema. Neurologic: Cognition is intact and speech is fluent. However, she is very hard of hearing and is not wearing her hearing aids. Mild tremor in the right hand. Psychiatric: A+Ox3, euthymic affect Results & Data Vital Signs (Past 12 Hours) Vital Signs Temp Pulse Pulse Resp BP BP Pulse Ox 08/10/24 15:15 161/94 H 08/10/24 15:09 101 H 33 H 89 L 08/10/24 15:00 165/92 H 08/10/24 15:00 100 H 19 100 08/10/24 14:56 36.6 C 98 H 18 162/96 H 98 08/10/24 14:45 166/94 H 08/10/24 14:45 166/94 H 08/10/24 14:45 166/94 H 08/10/24 14:45 99 H 19 99 08/10/24 14:35 96 H 18 165/91 H 99 08/10/24 14:34 94 H 08/10/24 14:30 98 H 13 98 08/10/24 14:30 165/91 H 08/10/24 14:30 165/91 H 08/10/24 14:21 96 H 18 98 08/10/24 14:15 168/98 H 08/10/24 14:00 160/105 H 08/10/24 14:00 98 H 22 100 08/10/24 13:59 08/10/24 13:44 36.6 C 93 H 18 161/95 H 98 08/10/24 13:00 89 18 150/81 H 100 08/10/24 12:45 88 18 152/94 H 95 08/10/24 12:31 90 18 136/99 95 08/10/24 10:47 64 16 158/87 H 95 08/10/24 10:46 08/10/24 10:44 80 08/10/24 10:38 84 16 75/30 L 98 O2 Del Method 08/10/24 15:15 08/10/24 15:09 08/10/24 15:00 08/10/24 15:00 08/10/24 14:56 Room Air 08/10/24 14:45 08/10/24 14:45 08/10/24 14:45 08/10/24 14:45 08/10/24 14:35 Room Air 08/10/24 14:34 08/10/24 14:30 08/10/24 14:30 08/10/24 14:30 08/10/24 14:21 08/10/24 14:15 08/10/24 14:00 08/10/24 14:00 Room Air 08/10/24 13:59 Room Air 08/10/24 13:44 Room Air 08/10/24 13:00 Room Air 08/10/24 12:45 Room Air 08/10/24 12:31 Room Air 08/10/24 10:47 Room Air 08/10/24 10:46 Room Air 08/10/24 10:44 08/10/24 10:38 Room Air PG Care Time/CCT Total # of Minutes Spent Total Time Spent with Patient: Total time spent is greater than 50% in coordination of care (as documented) at patient's floor/unit and/or counseling patient: A total of 60 minutes critical care time was used in the initial evaluation, examination, review of available records, discussion with the patient, the emergency department care team, etc. formulation and implementation of a plan of care, and all associated documentation. This time is exclusive of the time spent for the procedure. Coding Level of Care Code 23488 CRITICAL CARE 1ST 30-74M Diagnoses STEMI (ST elevation myocardial infarction) I21.3 Coronary artery disease I25.10 Dyslipidemia E78.5 Hypertension I10 CKD (chronic kidney disease), stage III N18.30 Time Spent (min) 60
--- OUTSIDE RECORDS SUMMARY | 2024-08-10 16:37 | External Medical Summary | Summary of Care ---
Author Name Unknown Organization [facility] Address [address] [place] [address] Phone [phone] Care Team Providers Care Supervisor Dental Laboratory Name Role Phone Guanakito Burgos MD Primary Care Provider [phone]- [phone] Encounter Details Date Type Department Care Team (Late st Contact Info) Description 06/16/2024 Population Health External Data Unspecified Department Allergies Active Allergy Reactions Criticality Noted Date Comments Amoxicillin-Pot Clavulanate Diarrhea 06/11/19 16 Got very sick Pollen 10/08/2015 Sulfa Antibiotics 08/24/2008 Very sick to stomach documented as of this encounter (statuses as of 06/16/2024) Medications LORATADINE 10 MG PO TABSIndications:Al lergic rhinitis One pill by mouth once a day as needed for allergies 90 Tab 3 12/28/19 11 Active Blood Glucose Monitoring Suppl ([employer] ULTRA SYSTEM) W/DEVICE KITIndications:DM type 2, goal A1c below 7 use to check blood sugar once per day, DX 250.00 1 Kit 0 08/14/19 16 Active Multiple Vitamins-Minerals (MULTIVITAMIN ADULT) TABS Take 1 Tab by mouth daily. Active BD Pen Needle [place] U/F 32G X 4 MM (Insulin Pen Needle)Indications :Type 2 diabetes mellitus with hemoglobin A1c goal of less than 8.0% ([facility]) Use to inject insulin subcutaneously once daily. 50 Each 9 05/24/20 20 Active Additional Information Patient not taking.Reported on 10/26/2023 Numerex w/Device KitIndications:Typ e 2 diabetes mellitus with hemoglobin A1c goal of less than 8.0% (HCC) Use up to 1 time a day E11.9 1 Kit 10/03/19 22 Active Gabapentin 100 MG Oral Capsule (Neurontin)Indicat ions:Chronic bilateral low back pain with bilateral sciatica,Diabetic polyneuropathy associated with type 2 diabetes mellitus (HCC) Take 2 capsules by mouth at bedtime 180 Capsule 1 11/25/19 23 Active Numerex In Vitro Strip (Glucose Blood)Indications: Type 2 diabetes mellitus with hemoglobin A1c goal of less than 8.0% ([facility]) Use to test blood sugar 1 time daily dx e11.9 100 Strip 5 02/18/20 23 Active [employer] Lancets 33GIndications:Typ e 2 diabetes mellitus with hemoglobin A1c goal of less than 8.0% ([facility]) Use to test blood sugar once daily dx e11.9 100 Each 3 02/18/20 23 Active Venlafaxine HCl ER 150 MG Oral Capsule Extended Release 24 Hour (Effexor XR) TAKE 1 CAPSULE BY MOUTH ONCE DAILY IN THE MORNING (DO NOT CUT, CRUSH OR CHEW) 90 Capsule 3 07/16/19 24 Active buPROPion HCl ER (XL) 150 MG Oral Tablet Extended Release 24 Hour (Wellbutrin XL) Take 1 Tablet by mouth in the morning. 30 Tablet 5 10/26/19 24 Active metFORMIN HCl ER 500 MG Oral Tablet Extended Release 24 Hour (Glucophage XR)Indications:Typ e 2 diabetes mellitus with hemoglobin A1c goal of less than 8.0% (HCC) TAKE 2 TABLETS BY MOUTH ONCE DAILY WITH BREAKFAST 180 Tablet 3 11/13/19 24 Active busPIRone HCl 5 MG Oral Tablet (Buspar) Take 1 Tablet by mouth in the morning and 1 Tablet before bedtime. 60 Tablet 5 02/10/20 24 Active Rosuvastatin Calcium 5 MG Oral Tablet (Crestor) Take 1 Tablet by mouth in the morning. 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), basal cell carcinoma (L anterior neck 08/06, L thigh 11/11, R posterior neck 10/12, R posterior neck 11/12, R mental chin 10/13) Varicose veins of both lower extremities with pa in 01/10/2021 Presbycusis of both ears 07/22/2019 Major depressive disorder wi th single episode, in full remission 09/08/2018 Diabetic polyneuropathy asso ciated with type 2 diabetes mellitus 01/12/2017 HTN, goal below 140/90 08/01/2014 Type 2 diabetes mellitus wit h hemoglobin A1c goal of less than 8.0% 05/02/2013 Overview (09/20/2015): ICD-10 update of inactive term DYSLIPIDEMIA, GOAL LDL BELOW 100 05/08/2009 Overview (05/08/2009): Per Lipid Taxonomy. documented as of this encounter (statuses as of 06/16/2024) Resolved Problems Problem Noted Date Diagnosed Date Resolved Date Kidney disease, chronic, sta ge III (GFR 30-59 ml/min) 03/01/2018 03/30/2018 Overview: Per CKD protocol #1 History of nonmelanoma skin cancer 04/21/2017 10/22/2022 Overview (11/07/2020): BCC R posterior neck 10/2020 SCC left cheek 01/07 BCC left neck 09/06 History of nonmelanoma skin cancer 04/21/2017 04/21/2017 Overview (04/21/2017): SCC left cheek 01/07 BCC left neck /15 History of basal cell carcinoma 01/12/2017 04/21/2017 History of basal cell carcinoma 06/28/2012 01/12/2017 Overview (06/28/2012): central upper lip Type 2 diabetes mellitus wit h hemoglobin A1c goal of 7.0%-8.0% 05/14/2012 05/02/2013 Overview (09/20/2015): ICD-10 update of inactive term HTN, goal below 130/80 05/14/201208/01 HTN, goal below 140/80 01/12/201205/14 Overview: Per HTN Protocol #27. Major depressive disorder 08/14/2010 Overview (03/17/2017): ICD-10 update of inactive term Severe obesity with body mas s index (BMI) of 35.0 to 39.9 with serious comorbidity 11/05/2009 Overview (03/10/2018): Per Obesity Protocol, #19 ICD-10 update of inactive diagnosis HTN, GOAL BELOW 130/80 06/20/200901/14 Overview (06/20/2009): Per HTN Taxonomy. Type 2 diabetes mellitus wit h hemoglobin A1c goal of less than 7.0% 03/22/2009 05/14/2012 Overview (09/18/2015): Per Diabetes Taxonomy. ICD-10 update of inactive term Dyslipidemia, goal to be determined 10/23/2008 05/08/2009 Overview (05/08/2009): Per Lipid Taxonomy. HTN, goal below 140/90 10/23/200806/20 Overview (06/20/2009): Per HTN Taxonomy. Type 2 diabetes mellitus wit h hemoglobin A1c goal of less than 7.0% 10/23/2008 03/22/2009 Overview (09/18/2015): Per Diabetes Taxonomy. ICD-10 update of inactive term documented as of this encounter (statuses as of 06/16/2024) Immunizations Name Administration Dates Next Due COVID-19 mRNA, LNP-s, No Pre serve, 2-Dose Series ([facility]) 07/16/2020,06/25/2020 COVID-19, MRNA-LNP, PF, 50 M CG/0.5 mL, 12 YRS AND ABOVE, IM (MODERNA-Spikevax) 02/28/2023 Pneumococcal Conjugate Vacc, 13 Valent (Prevnar) 04/11/2015 Pneumococcal Polysaccharide PPV23 (Pneumovax) 06/25/2006 Season Influenza, Quad, PF, Adjuvanted, 65+ Yrs, IM (FLUAD) 02/06/2020 Seasonal Influenza Vac, Quad , Cell culture, with Preserve, 6 mon and above, (Flucelvax) 02/28/2023 Seasonal Influenza Vac., MDV , IM, 0.5 mL (Fluzone) 02/23/2014,03/01/2013,02/26/2012,03/25,03/11/2010,04/16/2009 Seasonal Influenza, High Dos e, Trivalent, PF, IM (Fluzone HD) 02/10/2024 Seasonal Influenza, PF, 6 M & above, IM , (FluLaval or Fluzone) 02/08/2019,05/10/2018 Seasonal Influenza, Quadriva lent Hd (Fluzone Hd) 02/22/2023,02/26/2021 Seasonal Influenza, Quadriva lent, No Preserve, IM 03/11/2016,03/05/2015 Seasonal Influenza, Quadriva lent,with Preserve, 3 yr & above, IM 02/17/2017 TDAP, Age 7 and older, IM (Adacel) 02/12/2017 Varicella Zoster Vaccine (Adult) 10/22/2008 documented as of this encounter Social History Tobacco Use Types Packs/Day Years Used Date Smoking Tobacco: Never Passive Smoke Exposure: Past Smokeless Tobacco: Never Alcohol Use Standard Drinks/Week Comments No 0 (1 standard drink = 0.6 oz pur e alcohol) PHQ-2 Answer Date Recorded PHQ Adult Total Score 0 02/10/2024 Hunger Vital Sign Answer Date Recorded Within the past 12 months, y ou worried that your food would run out before you got the money to buy more. Never true 02/10/20 24 Within the past 12 months, t he food you bought just didn't last and you didn't have money to get more. Never true 02/10/2024 Childcare Answer Date Recorded Do you feel overwhelmed with taking care of a child, family member or friend? No 02/10/2024 Does your family need help f inding childcare? (Household - for ages 0-17 years) Not on file 02/10/2024 Clothing Answer Date Recorded Have you been unable to get clothing when it was really needed? No 02/10/2024 Is your family able to get c lothes or diapers when needed? (Household - for ages 0-17 years) Not on file 02/10/2024 Personal Safety Answer Date Recorded Do you feel unsafe or have concerns for your saf ety? No 02/10/2024 Do you have concerns for you r family's safety? (Household - for ages 0-17 years) Not on file 02/10/2024 Utilities Answer Date Recorded Do you have trouble paying y our heating, water, or electric bill? No 02/10/2024 Is your family able to pay t he heat, water, or electric bill? (Household - for ages 0-17 years) Not on file 02/10/2024 Does your family have access to good internet? (Household - for ages 0-17 years) Not on file 02/10/2024 Employment Status Answer Date Recorded Are you unemployed or without regular income? No 02/10/2024 Does the household have a re lar source of income? (Household - for ages 0-17 years) Not on file 02/10/2024 Social Connections Answer Date Recorded How often do you feel lonely or isolated from th ose around you? Never 02/10/2024 Financial Resource Strain Answer Date R ecorded Do you have any trouble payi ng for your medications, or do you think you might in the future? No 02/10/2024 Does your family have troubl e paying for medicine? (Household - for ages 0-17 years) Not on file 02/10/2024 Transportation Needs Answer Date Record ed Do you have trouble getting a ride to medical visits or work? (Adult - for ages 18 years and over) Not on file 02/10/2024 Does your family have a hard time getting a ride to doctors visits? (Household - for ages 0-17 years) Not on file 02/10/2024 Has lack of transportation k ept you from medical appointments, meetings, work, or from getting things needed for daily living? Check all that apply. No 02/10/2024 Do you (or your family) have trouble finding or paying for a ride (transportation)? (Household - for ages 0-17 years) Not on file 02/10/2024 Housing Stability Answer Date Recorded Do you currently live in a s helter or have no steady place to sleep at night? No 02/10/2024 Do you think you are at risk of becoming homeless? (Adult - for ages 18 years and over) Not on file 02/10/2024 Does your family worry about paying for your home or becoming homeless? (Household - for ages 0-17 years) Not on file 0 02/10/2024 Are you homeless or worried that you might be in the future? No 02/10/2024 Are you (or your family) tai eless or worried that you might be in the future? (Household - for ages 0-17 years) Not on file Food Insecurity Answer Date Recorded Do you need food for this week? No 02/10/2024 Are you able to get enough f ood for your family? (Household - for ages 0-17 years) Not on file 02/10/2024 Does your family need food t his week? (Household - for ages 0-17 years) Not on file 02/10/2024 Do you always have enough fo od for your family? (Household - for ages 0-17 years) Not on file 02/10/2024 Comments No Sex and Gender Information Value Date Recorded Sex Assigned at Female 02/10/2024 9:01 AM EDT Legal Sex Female 6:41 AM EST Gender Identity Female 02/10/2024 9:01 AM EDT Sexual Orientation Straight 02/10/2024 9: 01 AM EDT documented as of this encounter Plan of Treatment Upcoming Encounters Date Type Department Care Team (Late st Contact Info) Description 06/21/2024 2:40 PM EST Office Visit [address] [place] [phone] Gia Mahoney PA-C [address] [place] [address] [place] [phone] 08/25/2024 10:40 AM EDT Office Visit [facility], [address] [place] [phone] Guanakito Burgos MD [address] [place] [address] Health Maintenance Due Date Last Done Comments Zoster Vaccines (2 of 3) 12/17/2008 10/22/2008 Adult Wellness Visit 11/17/2018 11/17/2017 Diabetic Foot Exam 03/19/2024 03/19/2023, 0 01/10/2021, 12/21/2019, Additional history exists HbA1c 08/04/2024 02/05/2024, 05/25, 03/17/2023, Additional history exists Diabetic Eye Exam 10/26/2024 10/27/2023, , 10/26/2023, Additional history exists Albumin/Creatinine Ratio 02/04/20252 024, 07/11/2022, 01/31/2020, Additional history exists B-12 02/04/2025 02/05/2024, 06/25, 05/14/2021, Additional history exists Depression Monitoring 02/09/2025 02/10/2024 DTap/Tdap Vaccines (2 - Td or Tdap) 02/12/2027 02/12/2017 DXA Scan 02/27/2027 02/28/2020, 02/03/2013 Pneumococcal Vaccine: 50+ Years Completed 08/24/2023, 04/11/2015, 06/25/2006 Influenza Vaccine (FLU shot) Completed , 02/28/2023, 02/28/2023, Additional history exists COVID-19 Vaccine Completed 03/07/2024, 11/2022, 07/16/2020, Additional history exists HPV (Gardasil) Vaccine Aged Out No lo nger eligible based on patient's age to complete this topic Hepatitis B Vaccine Aged Out No longe r eligible based on patient's age to complete this topic MENINGOCOCCAL (MENACTRA/MENVEO) Aged Out No longer eligible based on patient's age to complete this topic documented as of this encounter Medical Devices Not on filedocumented as of this encounter Care Teams Supervisor Dental Laboratory Relationship Specialty Start Date End Date Guanakito Burgos MD PCP - General 09/07/08 documented as of this encounter
--- OUTSIDE RECORDS SUMMARY | 2024-08-10 16:37 | External Medical Summary | Summary of Care ---
Author Name Unknown Organization [facility] Address [address] [place] [address] Phone [phone] Care Team Providers Care Patient Care Assistant Name Role Phone Guanakito Burgos MD Primary Care Provider +1- [phone] Reason for Visit * Reason Onset Date Comments Advice 05/26/2024 Encounter Details Date Type Department Care Team (Late st Contact Info) Description 05/26/2024 Telephone [facility] [address] [place] [address] Guanakito Burgos MD [address] [place] [address] Advice Allergies Active Allergy Reactions Criticality Noted Date Comments Amoxicillin-Pot Clavulanate Diarrhea 06/11/19 16 Got very sick Pollen 10/08/2015 Sulfa Antibiotics 08/24/2008 Very sick to stomach documented as of this encounter (statuses as of 05/30/2024) Medications LORATADINE 10 MG PO TABSIndications:Al lergic rhinitis One pill by mouth once a day as needed for allergies 90 Tab 3 12/28/19 11 Active Blood Glucose Monitoring Suppl ([employer] ULTRA SYSTEM) W/DEVICE KITIndications:DM type 2, goal [...] goal of less than 8.0% (HCC) Use to inject insulin subcutaneously once daily. 50 Each 9 05/24/20 20 Active Additional Information Patient not taking.Reported on 10/26/2023 [employer] w/Device KitIndications:Typ e 2 diabetes mellitus with hemoglobin A1c goal of less than 8.0% (HCC) Use up to 1 time a day E11.9 1 Kit 10/03/19 22 Active Gabapentin 100 MG Oral Capsule (Neurontin)Indicat ions:Chronic bilateral low back pain with bilateral sciatica,Diabetic polyneuropathy associated with type 2 diabetes mellitus (HCC) Take 2 capsules by mouth at bedtime 180 Capsule 1 11/25/19 23 Active [employer] In Vitro Strip (Glucose Blood)Indications: Type 2 diabetes mellitus with hemoglobin A1c goal of less than 8.0% (HCC) Use to test blood sugar 1 time daily dx e11.9 100 Strip 5 02/18/20 23 Active [employer] Lancets 33GIndications:Typ e 2 diabetes mellitus with hemoglobin A1c goal of less than 8.0% (HCC) Use to test blood sugar once daily [...] as of this encounter (statuses as of 05/30/2024) Active Problems Problem Noted Date Diagnosed Date [...] as of this encounter (statuses as of 05/30/2024) Resolved Problems Problem Noted Date Diagnosed Date [...] 01/07 BCC left neck 09/06 History of basal cell carcinoma 01/12/2017 04/21/2017 [...] as of this encounter (statuses as of 05/30/2024) Immunizations Name Administration Dates Next Due COVID-19 mRNA, LNP-s, No Pre serve, 2-Dose Series ([employer]) 07/16/2020,06/25/2020 COVID-19, MRNA-LNP, PF, 50 M CG/0.5 [...] No 02/10/2024 Does the household have a [facility] [[email or web address]]lar source of income? (Household - for ages [...] AM EDT documented as of this encounter Miscellaneous Notes * Telephone Encounter - Gia Hunter OSA - 05/30/2024 2:32 PM EST Spoke to patient and she states she will keep upcoming appointment with Dr. Burgos bc nothing available until November. 05/30/2024 * Telephone Encounter - Oksana Francois OSA - 05/26/2024 12:50 PM EST No Appointments Available Patient declined appointments?: No What Visit Type is needed? Annual Wellness Visit If Acute Visit Type is needed, were surrounding clinics offered to patient (Yes/No)? N/A Was patient offered appointments with other available providers (Yes/No)? N/A See Call Details? (Yes or No): No documented in this encounter Plan of Treatment Upcoming Encounters Date Type Department Care Team (Late st Contact Info) Description 06/21/2024 2:40 PM EST Office Visit Dermatology, [address] [place] [phone] Gia Mahoney PA-C [address] [place] [address] [place] [phone] 08/25/2024 10:40 AM EDT Office Visit Family [facility], [address] [phone] Guanakito Burgos MD [address] [place] [phone] Health Maintenance Due Date Last Done Comments Zoster Vaccines (2 of 3) 12/17/2008 10/22/2008 Adult Wellness Visit 11/17/2018 11/17/2017 Diabetic Foot Exam 03/19/2024 03/19/2023, 0 01/10/2021, 12/21/2019, Additional history exists HbA1c 08/04/2024 02/05/2024, 05/25, 03/17/2023, Additional history exists Diabetic Eye Exam 10/26/2024 10/27/2023, , 10/26/2023, Additional history exists Albumin/Creatinine Ratio 02/04/2025 024, 07/11/2022, 01/31/2020, Additional history exists B-12 [...] filedocumented as of this encounter Care Teams Patient Care Assistant Relationship Specialty Start Date End Date Guanakito Burgos MD PCP - General 09/07/08 documented as of this encounter
--- OUTSIDE RECORDS SUMMARY | 2024-08-10 16:38 | External Medical Summary | Summary of Care ---
Author Name Unknown Organization [facility] Address [address] [place] [address] Phone [phone] Care Team Providers Care Indian Blanket Weaver Name Role Phone Guanakito Malone MD Primary Care Provider [phone]- [phone] Reason for Visit * Reason Comments eRx-Medication Refill Encounter Details Date Type Department Care Team (Late st Contact Info) Description 03/04/2024 Refill [facility] [address] [place] [address] Guanakito Malone MD [address] [place] [address] HTN, goal below 140/90 Allergies Active Allergy Reactions Criticality Noted Date Comments Amoxicillin-Pot Clavulanate Diarrhea 06/11/19 16 Got very sick Pollen 10/08/2015 Sulfa Antibiotics 08/24/2008 Very sick to stomach documented as of this encounter (statuses as of 03/07/2024) Medications Medication Sig Dispensed Refills Start Date End Date Status LORATADINE 10 MG PO TABSIndications:Al lergic rhinitis One pill by mouth once a day as needed for allergies 90 Tab 3 12/28/19 11 Active Blood Glucose Monitoring Suppl (VerbalizeIt ULTRA SYSTEM) W/DEVICE KITIndications:DM type 2, goal [...] Additional Information Patient not taking.Reported on 10/26/2023 Eclector w/Device KitIndications:Typ e 2 diabetes mellitus with hemoglobin A1c goal of less than 8.0% (HCC) Use up to 1 time a day E11.9 1 Kit 10/03/19 22 Active Gabapentin 100 MG Oral Capsule (Neurontin)Indicat ions:Chronic bilateral low back pain with bilateral sciatica,Diabetic polyneuropathy associated with type 2 diabetes mellitus (HCC) Take 2 capsules by mouth at bedtime 180 Capsule 1 11/25/19 23 Active Eclector In Vitro Strip (Glucose Blood)Indications: Type 2 diabetes mellitus with hemoglobin A1c goal of less than 8.0% (HCC) Use to test blood sugar 1 time daily dx e11.9 100 Strip 5 02/18/20 23 Active [employer] Lancets 33GIndications:Typ e 2 diabetes mellitus with [...] MORNING 90 Tablet 1 03/07/20 24 Active Valsartan-hydroCHL OROthiazide 160-12.5 MG Oral Tablet (Diovan Hct)Indications:HT N, goal below 140/90 TAKE 1 TABLET BY MOUTH ONCE DAILY IN THE MORNING 90 Tablet 1 08/18/19 24 024 Discontinued documented as of this encounter (statuses as of 03/07/2024) Active Problems Problem Noted Date Diagnosed Date Hx of nonmelanoma skin cancer 10/22/2022 Overview: squamous cell carcinoma (L cheek 01/07), basal [...] A1c goal of less than 8.0% 05/02/2013 Overview: ICD-10 update of inactive term DYSLIPIDEMIA, GOAL LDL BELOW 100 05/08/2009 Overview: Per Lipid Taxonomy. 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 Major depressive disorder 08/14/2010 Overview: ICD-10 update of inactive term Severe obesity with body mas s index (BMI) of 35.0 to 39.9 with serious comorbidity 11/05/2009 Overview: Per Obesity Protocol, #19 ICD-10 update of inactive diagnosis HTN, GOAL BELOW 130/80 06/20/200901/14 Overview: Per HTN Taxonomy. Type 2 diabetes mellitus wit h hemoglobin A1c goal of less than 7.0% 03/22/2009 05/14/2012 Overview: Per Diabetes Taxonomy. ICD-10 update of inactive term Dyslipidemia, goal to be determined 10/23/2008 05/08/2009 Overview: Per Lipid Taxonomy. HTN, goal below 140/90 10/23/200806/20 Overview: Per HTN Taxonomy. Type 2 diabetes mellitus wit h hemoglobin A1c goal of less than 7.0% 10/23/2008 03/22/2009 Overview: Per Diabetes Taxonomy. ICD-10 update of inactive term documented as of this encounter (statuses as of 03/07/2024) Immunizations Name Administration Dates Next Due COVID-19 mRNA, LNP-s, No Pre serve, 2-Dose Series ([employer]) 07/16/2020,06/25/2020 COVID-19, MRNA-LNP, 23-24, P F, 50 MCG/0.5 mL, 12 YRS AND ABOVE, IM (MODERNA-Spikevax) [...] Answer Date Recorded PHQ Adult Total Score 1 10/01/2021 Hunger Vital Sign Answer Date Recorded Worried About Running Out of Food in the Last Ye ar Never true 02/08/2019 Ran Out of Food in the Last Year Never true 02/08/2019 Sex and Gender Information Value Date Recorded Sex Assigned at Female 02/10/2024 9:01 AM EDT Gender Identity Female 02/10/2024 9:01 AM EDT Sexual Orientation Straight 02/10/2024 9: 01 AM EDT Job Start Date Occupation Industry Not on file Not on file Not on file documented as of this encounter Miscellaneous Notes * Telephone Encounter - Sana Welsh [facility] - 03/07/2024 7:53 AM EDTSigned Prescriptions: Disp Refills Valsartan-hydroCHLOROthiazide 160-12.5 MG *90 Tab*1 Sig: TAKE 1 TABLET BY MOUTH ONCE DAILY IN THE MORNINGAuthorizing Provider: GUANAKITO MALONE User: SANA WELSH documented in this encounter Plan of Treatment Upcoming Encounters Date Type Department Care Team (Late st Contact Info) Description 03/29/2024 12:30 PM EST Imaging Radiology [address] [place] [id number] 05/03/2024 11:00 AM EST [facility] [place] [address] [address] [facility] [address] Gia Mahoney PA-C [address] [place] [address] [place] [id number] 05/17/2024 9:20 AM EST [facility] [address] [facility] [phone] [facility]ito Malone [facility] [address] [facility] [place] [id number] 08/25/2024 10:40 AM EDT Office Visit [facility] [address] [place] [facility] [place] [address] Guanakito Malone MD [address] [place] [facility] [place] [address] Health Maintenance Due Date Last Done Comments Zoster Vaccines (2 of 3) 12/17/2008 10/22/2008 Adult Wellness Visit 11/17/2018 11/17/2017 COVID-19 Vaccine ( season) 2024 02/28/2023, 07/16/2020, 06/25/2020 Diabetic Foot Exam 03/19/2024 03/19/2023, 0 01/10/2021, 12/21/2019, Additional history exists GFR 06/10/2024 06/10/2023, 02/23, 11/21/2022, Additional history exists HbA1c 08/04/2024 02/05/2024, 05/25, 03/17/2023, Additional history exists Diabetic Eye Exam 10/26/2024 10/27/2023, , 10/26/2023, Additional history exists Albumin/Creatinine Ratio 02/04/2025 024, 07/11/2022, 01/31/2020, Additional history exists B-12 02/04/2025 02/05/2024, 06/25, 05/14/2021, Additional history exists Depression Monitoring 02/09/2025 02/10/2024 DTap/Tdap Vaccines (2 - Td or Tdap) 02/12/2027 02/12/2017 DXA Scan 02/27/2027 02/28/2020, 02/03/2013 Pneumococcal Vaccine: 65+ Years Completed 08/24/2023, 04/11/2015, 06/25/2006 Influenza Vaccine (FLU shot) Completed , 02/28/2023, 02/28/2023, Additional history exists HPV (Gardasil) Vaccine Aged [...] Not on filedocumented as of this encounter Visit Diagnoses Diagnosis HTN, goal below 140/90 Unspecified essential hypertension Screening mammogram for breast cancer documented in this encounter Care Teams Indian Blanket Weaver Relationship Specialty Start Date End Date Guanakito Malone MD [address] [place] [address] PCP - General 09/07/08 documented as of this encounter
--- OUTSIDE RECORDS SUMMARY | 2024-08-10 16:38 | External Medical Summary | Summary of Care ---
Author Name Unknown Organization [facility] Address [address] [place] [address] Phone [phone] Care Team Providers Care Exhaust And Muffler Repairer Name Role Phone Guanakito Burgos MD Primary Care Provider [phone]- [phone] Encounter Details Date Type Department Care Team (Late st Contact Info) Description 02/16/2024 Orders Only PATIENT PORTAL DO NOT DELETE THIS DEPT USED BY [place] [id number] Allergies Active Allergy Reactions Criticality Noted Date Comments Amoxicillin-Pot Clavulanate Diarrhea 06/11/19 16 Got very sick Pollen 10/08/2015 Sulfa Antibiotics 08/24/2008 Very sick to stomach documented as of this encounter (statuses as of 02/16/2024) Medications Medication Sig Dispensed Refills Start Date End Date Status LORATADINE 10 MG PO TABSIndications:All ergic rhinitis One pill by mouth once a day as needed for allergies 90 Tab 3 12/27/2010 Active Blood Glucose Monitoring Suppl ([employer] ULTRA SYSTEM) W/DEVICE KITIndications:DM type 2, goal A1c below 7 use to check blood sugar once per day, DX 250.00 1 Kit 0 08/14/2015 Active Multiple Vitamins-Minerals (MULTIVITAMIN ADULT) TABS Take 1 Tab by mouth daily. Active BD Pen Needle [place] U/F 32G X 4 MM (Insulin Pen Needle)Indications: Type 2 diabetes mellitus with hemoglobin A1c goal of less than 8.0% ([facility]) Use to inject insulin subcutaneously once daily. 50 Each 9 05/24/2020 Active Additional Information Patient not taking.Reported on 10/26/2023 [employer] Verio w/Device KitIndications:Type 2 diabetes mellitus with hemoglobin A1c goal of less than 8.0% (HCC) Use up to 1 time a day E11.9 1 Kit 10/02/2021 Active Gabapentin 100 MG Oral Capsule (Neurontin)Indicati ons:Chronic bilateral low back pain with bilateral sciatica,Diabetic polyneuropathy associated with type 2 diabetes mellitus (HCC) Take 2 capsules by mouth at bedtime 180 Capsule 1 11/24/2022 Active [employer] Verio In Vitro Strip (Glucose Blood)Indications:T ype 2 diabetes mellitus with hemoglobin A1c goal of less than 8.0% (HCC) Use to test blood sugar 1 time daily dx e11.9 100 Strip 5 02/17/2023 Active [employer] Lancets 33GIndications:Type 2 diabetes mellitus with hemoglobin A1c goal of less than 8.0% (HCC) Use to test blood sugar once daily dx e11.9 100 Each 3 02/17/2023 Active Venlafaxine HCl ER 150 MG Oral Capsule Extended Release 24 Hour (Effexor XR) TAKE 1 CAPSULE BY MOUTH ONCE DAILY IN THE MORNING (DO NOT CUT, CRUSH OR CHEW) 90 Capsule 3 07/16/2023 Active Valsartan-hydroCHLO ROthiazide 160-12.5 MG Oral Tablet (Diovan Hct)Indications:HTN , goal below 140/90 TAKE 1 TABLET BY MOUTH ONCE DAILY IN THE MORNING 90 Tablet 1 08/18/2023 Active buPROPion HCl ER (XL) 150 MG Oral Tablet Extended Release 24 Hour (Wellbutrin XL) Take 1 Tablet by mouth in the morning. 30 Tablet 5 10/26/2023 Active metFORMIN HCl ER 500 MG Oral Tablet Extended Release 24 Hour (Glucophage XR)Indications:Type 2 diabetes mellitus with hemoglobin A1c goal of less than 8.0% (HCC) TAKE 2 TABLETS BY MOUTH ONCE DAILY WITH BREAKFAST 180 Tablet 3 11/13/2023 Active busPIRone HCl 5 MG Oral Tablet (Buspar) Take 1 Tablet by mouth in the morning and 1 Tablet before bedtime. 60 Tablet 5 02/10/2024 Active Doxycycline Hyclate 100 MG Oral Capsule Take 1 Capsule by mouth in the morning and 1 Capsule before bedtime. Do all this for 10 days. Until gone.. 20 Capsule 02/10/2024 02/20/20 24 Active Rosuvastatin Calcium 5 MG Oral Tablet (Crestor) Take 1 Tablet by mouth in the morning. 90 Tablet 3 02/10/2024 Active documented as of this encounter (statuses as of 02/16/2024) Active Problems Problem Noted Date Diagnosed Date [...] as of this encounter (statuses as of 02/16/2024) Resolved Problems Problem Noted Date Diagnosed Date Resolved Date Kidney disease, chronic, sta ge III (GFR 30-59 ml/min) 03/01/2018 03/30/2018 Overview: Per CKD protocol #1 History of nonmelanoma skin cancer 04/21/2017 10/22/2022 Overview: BCC R posterior neck 10/2020 SCC left cheek 8/16 BCC left neck /15 History of nonmelanoma skin cancer 04/21/2017 04/21/2017 Overview: SCC left cheek 8/16 BCC left neck 4/15 History of basal cell carcinoma 01/12/2017 04/21/2017 [...] as of this encounter (statuses as of 02/16/2024) Immunizations Name Administration Dates Next Due COVID-19 mRNA, LNP-s, No Pre serve, 2-Dose Series ([employer]) 07/16/2020,06/25/2020 COVID-19, MRNA-LNP, 23-24, P F, 50 MCG/0.5 mL, 12 YRS AND ABOVE, IM (MODERNA-Spikevax) 02/28/2023 Pneumococcal Conjugate Vacc, 13 Valent (Prevnar) 04/11/2015 Pneumococcal Polysaccharide PPV23 (Pneumovax) 06/25/2006 Season Influenza, Quad, PF, Adjuvanted, 65+ Yrs, IM (FLUAD) 02/06/2020 Seasonal Influenza Vac, Quad , Cell culture, with Preserve, 6 mon and above, (Flucelvax) 02/28/2023 Seasonal Influenza, High Dos e, Trivalent, PF, IM (Fluzone HD) 02/10/2024 Seasonal Influenza, PF, 6 M & above, IM , (FluLaval or Fluzone) 02/08/2019,05/10/2018 Seasonal Influenza, Quadriva lent Hd (Fluzone Hd) 02/22/2023,02/26/2021 Seasonal Influenza, Quadriva lent, No Preserve, IM 03/11/2016,03/05/2015 Seasonal Influenza, Quadriva lent,with Preserve, 3 yr & above, IM 02/17/2017 Seasonal Influenza, Trivalen t, (IIV3), with Preserv, (Fluzone) 02/23/2014,03/01/2013,02/26/2012,03/25,03/11/2010,04/16/2009 TDAP, Age 7 and older, IM (Adacel) [...] on file documented as of this encounter Plan of Treatment Upcoming Encounters Date Type Department Care Team (Late st Contact Info) Description 03/29/2024 12:30 PM EST Imaging Radiology [facility] 1st Floor, [place] [address] [facility] [place] [id number] 05/03/2024 11:00 AM EST Office Visit [facility], [place] [address] [facility] [address] Gia Mahoney PA-C [address] [place] [address] [place] [address] 05/17/2024 9:20 AM EST Office Visit [facility] [place] [address] [address] [facility] [phone] Guanakito Burgos MD [address] [facility] [address] 08/25/2024 10:40 AM EDT Office Visit [facility], [place] [address] [address] [facility] [phone] Guanakito Burgos MD [address] [facility] [id number] Health Maintenance Due Date Last Done Comments Adult Wellness Visit 11/17/2018 11/17/2017 COVID-19 Vaccine ( season) 2024 02/28/2023, 07/16/2020, 06/25/2020 Postponed from 01/24/2024 (Patient Declined After Education) Zoster Vaccines (2 of 3) 02/26/2024 10/22/2008 Pos tponed from 12/17/2008 (Insurance/Financial) Diabetic Foot Exam 03/19/2024 03/19/2023, 0 01/10/2021, [...] 04/11/2015, 06/25/2006 Influenza Vaccine (FLU shot) Completed 02/10/2024, 02/28/2023, 02/28/2023, Additional history exists HPV (Gardasil) [...] filedocumented as of this encounter Care Teams Exhaust And Muffler Repairer Relationship Specialty Start Date End Date Guanakito Burgos MD [address] [place] [address] PCP - General 09/07/08 documented as of this encounter
[2024-08-10] MEDS: SODIUM CHLORIDE 0.9% 1,000 ML IV SCH (17:38)
--- NOTE | 2024-08-10 18:08 | Electrocardiogram Report ---
Test Reason : Blood Pressure : */* mmHG Vent. Rate : 97 BPM Atrial Rate : 97 BPM P-R Int : 142 ms QRS Dur : 134 ms QT Int : 408 ms P-R-T Axes : 69 25 250 degrees QTcB Int : 518 ms Normal sinus rhythm Left bundle branch block Abnormal ECG When compared with ECG of 26-Mar-2018 17:31, Left bundle branch block is now Present Confirmed by Ferdinand Mansfield ([id number]) on 08/10/2024 6:08:27 PM Referred By: REFERRED SELF Confirmed By: Ferdinand Mansfield
--- NOTE | 2024-08-10 19:02 | XRay Report ---
EXAM: X-ray chest one-view portable CLINICAL HISTORY: STEMI PRIORS: 03/06/2023, 05/20/2020 TECHNIQUE: Frontal view chest FINDINGS: The chest is well-expanded. Engorgement of the central pulmonary vasculature with mild interstitial prominence appearing in the interval. No confluent airspace consolidation. Heart size is normal. No pneumothorax. Trachea is patent. Moderate atherosclerotic disease of the aortic knob. Osseous structures demonstrate no acute abnormality. No radiopaque foreign body. IMPRESSION: Radiographic features favoring volume overload, appearing in the interval. Electronically signed by Kat Eckert 08-10-2024 7:02 PM
[2024-08-10] MEDS: GABAPENTIN 100 MG CAP PO SCH (20:02)
[2024-08-10] MEDS: METOPROLOL TARTRATE 25 MG TAB PO SCH (20:02)
[2024-08-10] MEDS: FUROSEMIDE INJ 20 MG/2 ML VIAL IV ONE (20:03)
[2024-08-11 05:14] LABS: Albumin Level 3.5 gm/dl (3.4-5.0); Bilirubin Direct 0.1 mg/dl (0-0.2); Bilirubin,Total 0.5 mg/dl (0.2-1.0); Total Protein 5.6 gm/dl (6.0-8.3)
[2024-08-11] MEDS: TICAGRELOR 90 MG TAB PO SCH (08:00)
[2024-08-11] MEDS: ASPIRIN 81 MG ECTAB PO SCH (08:00)
[2024-08-11] MEDS: ATORVASTATIN 40 MG TAB PO SCH (08:00)
--- NOTE | 2024-08-11 08:46 | Cardiology Consultation ---
Date of Consultation August 11, 2024 Assessment & Plan (1) ST elevation (STEMI) myocardial infarction: (2) Coronary artery disease: (3) Dyslipidemia: (4) Hypertension: Plan Patient admitted yesterday with acute inferior STEMI with multivessel disease noted by cardiac cath. Received ENIO to the RCA for actue thrombosis and severe prox LAD disease also noted for [facility] she received single long ENIO to the LAD with good results. She has other distal RCA disease and OM disease for which medical management is recommended. Patient tolerated procedure without issues. Echo pending this morning. No chest pain/SOB overnight. Vitals stable. Will need dual antiplatelet therapy with ASA and Brilinta for minimum of 1 year. Started on statin - atorvastatin 40 mg daily. Long history of untreated hyperlipidemia. Continue home dose valsartan 80 mg daily Pending renal function and echo results this morning, she may benefit from transitioning to Entresto with spironolactone, and maybe loop diuretic Currently appears euvolemic. Consider stopping/holding hctz Consider nitrates for recurrent anginal symptoms as well. Case discussed with Dr. Whitaker I spent a total of 60 minutes on the date of service in preparation, delivery, and documentation of the care provided to this patient, excluding any time spent in the performance of separately billed services. Ai Esposito PA-C Department of Cardiology, [facility] This chart was completed in part utilizing Speech Voice Recognition Software. Grammatical errors, random word insertions, pronoun errors, and incomplete sentences are an occasional consequence of this system due to software limitations, ambient noise, and hardware issues. Any formal questions or concerns about the content, text, or information contained within the body of this dictation should be directly addressed to the provider for clarification. Supervising Physician Co-Signing Physician Notes I have personally performed a history and physical examination on the patient. I have reviewed the advance practitioner's documentation, and I agree with, and take responsibility for the plan of care. 84-year-old female admitted secondary to ST elevation myocardial infarction. Drug-eluting stent implanted to the right coronary artery and proximal LAD without complication. Echocardiogram revealing severe LV systolic dysfunction, LVEF 30-35%, with small laminar thrombus. Currently recovering well without recurrent angina. Tolerating medications as noted above. Recommendations: * Discontinue aspirin. * Continue Brilinta uninterrupted for minimum of 1 year post PCI. * Add Eliquis 5 mg twice daily for treatment of LV mural thrombus. * Discontinue valsartan in favor of Entresto. * Discontinue metoprolol to tartrate in favor of succinate formulation. * Hold hydrochlorothiazide. * Consider addition of spironolactone pending review of a.m. labs. * Give additional 40 mill equivalents of potassium now. * Repeat serum magnesium level, supplement as indicated * No role for IV or oral loop diuretic at this time. * Cardiology will continue to follow closely during hospitalization. Brian Whitaker DO, [facility] History of Present Illness Reason for Consultation: CAD; Post STEMI Requesting Physician: Coco Perdueist Attending Physician: Dr. Whitaker History of Present Illness Patient is an 84 year old female who carries a history of hyperlipidemia (not treated), DM, HTN, who presented to [facility] yesterday, 08/10/24 with complaints of chest pain. Initial EKG demonstrated inferior ST elevation along along with ST elevation in V3 and V4. Concerns for STEMI. Heart alert was called and patient taken urgently to cardiac labor delivery rn by interventionalist. Found to have acute thrombus within the prox RCA treated with 1 ENIO. High grade stenosis of the prox LAD, also treated with 1 ENIO. Residual left circumflex and distal RCA disease for which medical management was recommended for now. Post procedure, EKG demonstrated NSR with new LBBB. She was started on GDMT therapy with dual antiplatelet therapy ASA and Brilinta, beta xiao, ARB and statin. Echo ordered and pending at time of evaluation. Uneventful night. Patient feeling well per nurse. At time of evaluation, patient reports feeling "pretty well". no recurrent chest pain overnight. No current SOB. No orthopnea, PND or edema. No pain at both cath sites. Tolerating medications. Allergies Allergy/AdvReac Type Severity Reaction Status Date / Time Sulfa (Sulfonamide Allergy Mild RASH Verified 05/20/20 14:25 Antibiotics) amoxicillin [From Augmentin] AdvReac Diarrhea Verified 08/10/24 13:15 clavulanic acid AdvReac Diarrhea Verified 08/10/24 13:15 [From Augmentin] Home Medications Medication Instructions Recorded Confirmed Type multivitamin with minerals 1 tab PO QAM 03/26/18 08/10/24 History (Multiple Vitamin-Minerals tablet) valsartan 160 1 tab PO QAM 03/26/18 08/10/24 History mg-hydrochlorothiazide 12.5 mg tablet gabapentin 100 mg capsule 200 mg PO HS 03/06/23 08/10/24 History venlafaxine 150 mg 150 mg PO DAILY 03/06/23 08/10/24 History capsule,extended release 24 hr (Effexor XR) metformin 500 mg tablet,extended 1,000 mg PO DAILY 08/10/24 08/10/24 History release 24 hr Patient History Surgical History History of cholecystectomy History of hysterectomy Social History Smoking Status: Never smoker Second Hand Exposure: Yes; Do You Dip or Chew Tobacco: No; Hx Alcohol Use: No Hx Substance Use: No Preferred Language: Wolof Communication Ability: Effective Local Flatbed Driver Required: No Beliefs That Will Affect Care: None Current Living Situation: Family Current Living Situation Comment: lower level of house, son and daughter in law live in top level Feels Safe at Home: Yes Assistive Devices: None Review of Systems Review of Systems: All systems reviewed & are unremarkable except as noted in HPI & below Physical Exam Constitutional: WD/WN, vitals as above average body habitus; no acute distress Neck: trachea midline, no thyromegaly Respiratory: normal respiratory effort Auscultation: + diminished lung sounds; no crackles and no rales Cardiovascular: Rate/Rhythm: regular rate and regular rhythm Heart Sounds: normal S1 and normal S2; no murmur Vessels: no JVD Extremities: no edema Gastrointestinal (Abdomen): normal bowel sounds, soft, nontender, no hepatosplenomegaly Musculoskeletal: no cyanosis or clubbing, extremities motor strength 5/5 Neurologic: PERRL, EOMI, accommodation nl, no face palsy, no dysarthria Psychiatric: A+Ox3, euthymic affect Results & Data Vital Signs (Past 12 Hours) Vital Signs Temp Pulse Resp BP Pulse Ox O2 Del Method 08/11/24 06:00 81 26 H 109/84 94 Room Air 08/11/24 05:00 73 16 118/64 96 Room Air 08/11/24 04:00 36.6 C 08/11/24 04:00 73 12 128/63 93 Room Air 08/11/24 03:00 73 19 140/67 93 Room Air 08/11/24 02:00 71 25 H 122/58 L 96 Room Air 08/11/24 00:00 69 23 96/66 L 93 Room Air 08/11/24 00:00 69 08/10/24 23:00 69 25 H 123/73 92 Room Air 08/10/24 22:00 75 23 132/77 94 08/10/24 21:03 93 H 20 141/72 H 95 Room Air Laboratory Results Cardiac Enzymes 08/10/24 08/10/24 08/10/24 Range/Units 10:45 13:54 19:58 AST 122 H (13-39) U/L Troponin I High Sens 3899.2 H* 5209.9 H* D 8073.6 H* D (0-14) pg/ml B-Natriuretic Peptide 1900 H (0-100) pg/ml 08/11/24 08/11/24 Range/Units 02:05 04:42 AST 76 H (13-39) U/L Troponin I High Sens 7685.5 H* (0-14) pg/ml B-Natriuretic Peptide (0-100) pg/ml Coagulation 08/10/24 Range/Units 10:45 PT 11.6 (9.0-12.0) Seconds APTT 25 (21-31) Seconds B-Natriuretic Peptide 1900 H (0-100) pg/ml Lipids 08/11/24 Range/Units 04:42 Triglycerides 108 (0-150) mg/dl Cholesterol 180 (0-200) mg/dl HDL Cholesterol 45 mg/dl Cholesterol/HDL Ratio 4.0 (0-5) CBC 08/10/24 08/10/24 Range/Units 10:45 13:54 WBC 7.28 8.14 (4.8-10.8) K/ul RBC 3.86 L 3.63 L (4.20-5.40) M/uL Hgb 12.1 11.5 L (12.0-16.0) g/dl Hct 37.0 34.4 L (37.0-47.0) % Plt Count 149 141 (130-400) K/uL Neut # (Auto) 4.72 6.78 H (1.40-6.50) K/uL Lymph # (Auto) 1.91 0.96 L (1.20-3.40) K/uL Weld # (Auto) 0.45 0.30 (0.11-0.59) K/uL Eos # (Auto) 0.13 0.04 (0.00-0.50) K/uL Baso # (Auto) 0.04 0.04 (0.00-0.20) K/uL Comprehensive Metabolic Panel 08/10/24 08/11/24 Range/Units 10:45 04:42 Sodium 140 (136-145) mmol/L Potassium 4.1 (3.5-5.1) mmol/L Chloride 102 (98-107) mmol/L Carbon Dioxide 25 (21-32) mmol/L BUN 36 H (6-23) mg/dl Creatinine 1.42 H (0.6-1.2) mg/dl Glucose 217 H (70-99(Fasting)) mg/dl Calcium 9.5 (8.6-10.3) mg/dl Direct Bilirubin 0.1 (0-0.2) mg/dl AST 122 H 76 H (13-39) U/L ALT 131 H 107 H (7-52) U/L Alkaline Phosphatase 161 H 121 H (34-104) U/L Total Protein 6.5 5.6 L (6.0-8.3) gm/dl Albumin 4.3 3.5 (3.4-5.0) gm/dl Intake and Output 08/10/24 08/11/24 08/11/24 22:59 06:59 14:59 Intake Total 789.333 / 889.333 100 / 889.333 Output Total 1075 / 1425 350 / 1425 Balance -285.667 / -535.667 -250 / -535.667 Intake: IV 249.333 / 249.333 Magnesium Sulfate / D5w 1 gm In 100 / 100 100 ml @ 50 mls/hr IV ONE ONE Rx#:[id number] Sodium Chloride 0.9% 1,000 ml @ 149.333 / 149.333 80 mls/hr IV .[id number] [facility] Rx#: [id number] Oral 540 / 640 100 / 640 Output: Urine 1075 / 1425 350 / 1425 # Bowel Movements 0 / 0 Other: Weight 58.8 kg Weight Measurement Method Built in [facility] Diagnostic Findings Telemetry reviewed: NSR, no arrhythmias noted. Echo report pending EKG from 08/11: NSR with T wave abnormality in inferior and lateral leads LBBB is no longer present EKG reviewed from 08/10 at 13:30: NSR with new LBBB EKG reviewed from admission 08/10 Possible accelerated junctional rhythm ST elevation in inferior leads, along with V3 and V4 Possible RV involvement in acute inferior infarct Cath report reviewed: Summary: 1. Severe multivessel coronary artery disease. Culprit for inferior LA is proximal RCA stenosis. The proximal LAD lesion also appears high risk although not the acute culprit. The proximal OM2 lesion and vessel were of lower risk. 2. Successful PCI with implantation of a drug-eluting stent in the proximal RCA. Good angiographic results with the distal vessel having significant disease but too small for PCI. Additional PCI of the proximal LAD for high risk lesion was successful using a single long drug-eluting stent. 3. Patient will be on dual antiplatelet therapy including aspirin 81 mg daily and Brilinta 90 mg p.o. twice daily. We will initiate guideline directed medical therapy for secondary prevention of coronary disease including high intensity statin therapy, beta-xiao, and continuation of her angiotensin receptor xiao. 4. Recommend echocardiogram to further evaluate cardiac function. Medications Administered Current Inpatient Medications Acetaminophen (Acetaminophen 325 Mg Tab) 650 mg PO Q4H PRN PRN Reason: MILD Pain (Scale 1,2,3) Stop: 09/09/24 12:09 Aspirin (Aspirin 81 Mg Ectab) 81 mg PO QAM [facility] Stop: 09/10/24 08:59 Atorvastatin Calcium (Atorvastatin 40 Mg Tab) 40 mg PO QAM [facility] Stop: 09/10/24 08:59 Atropine Sulfate (Atropine Sulfate 0.1 Mg/Ml 10ml Syr) 0.5 mg IV UD PRN PRN Reason: bradycardia/hypotension Stop: 09/09/24 12:09 Gabapentin (Gabapentin 100 Mg Cap) 200 mg PO HS [facility] Stop: 09/09/24 20:59 Last Admin: 08/10/24 20:02 Dose: 200 mg Hydrochlorothiazide (Hydrochlorothiazide 25 Mg Tab) 12.5 mg PO DAILY [facility] Stop: 09/10/24 08:59 Last Admin: 08/11/24 08:53 Dose: 12.5 mg Metoprolol Tartrate (Metoprolol Tartrate 25 Mg Tab) 25 mg PO BID [facility] Stop: 09/09/24 20:59 Last Admin: 08/10/24 20:02 Dose: 25 mg Miscellaneous (Icu Protocol For Hyperglycemia) 1 each N/A ACHS [facility] Stop: 08/12/24 16:29 Last Admin: 08/11/24 07:53 Dose: Not Given Ondansetron HCl (Ondansetron Inj 2 Mg/Ml 2 Ml Vial) 4 mg IV Q6H PRN PRN Reason: Nausea And Vomiting Stop: 09/09/24 12:09 Ticagrelor (Ticagrelor 90 Mg Tab) 90 mg PO BID [facility] Stop: 09/10/24 08:59 Valsartan (Valsartan 80 Mg Tab) 80 mg PO DAILY [facility] Stop: 09/10/24 08:59 Last Admin: 08/11/24 08:53 Dose: 80 mg Venlafaxine HCl (Venlafaxine Hcl Xr 150 Mg Capxr) 150 mg PO DAILY [facility] Stop: 09/09/24 14:44 Last Admin: 08/10/24 15:34 Dose: 150 mg (1) ST elevation (STEMI) myocardial infarction Involved coronary artery: LAD coronary artery Qualified Code(s): I21.02 - ST elevation (STEMI) myocardial infarction involving left anterior descending coronary artery
[2024-08-11] MEDS: hydroCHLOROthiazide 25 MG TAB PO SCH (08:53)
[2024-08-11] MEDS: VALSARTAN 80 MG TAB PO SCH (08:53)
[2024-08-11] MEDS ORDERED: VALSARTAN/HCTZ 80/12.5MG TAB PO SCH (09:00)
--- NOTE | 2024-08-11 09:35 | Critical Care Progress Note ---
Date of Service August 11, 2024 Assessment & Plan (1) STEMI (ST elevation myocardial infarction): Plan: Impression: 57-year-old female presents to the ICU status post heart catheterization. Neuro - RASS GOAL 0 Avoid sedating medications Multimodal pain management. APAP PRN pain/fever Cardiac - Cardiology consultation reviewed Statin and dual antiplatelet therapy Respiratory - SpO2 > 92% GI - Diet: Tolerating diet RENAL/LYTES - Replete electrolytes as indicated Maintain net even to net negative ENDO - BG 140-180 per [facility]M guidelines HEME - DAPT as above ID - No acute concerns LINES/TUBES/DRAINS - PIV Disposition: Critical care will sign off stable for downgrade (2) Dyslipidemia: (3) Diabetes mellitus, type II: Admission and Anticipated Discharge Date Admission Date: August 10, 2024 Subjective Feels improved compared to yesterday. Sitting upright in chair reading book. Physical Exam Physical Exam: General: Alert. nontoxic. Skin: Warm, dry, Head: Atraumatic Ears, nose, mouth and throat: airway patent Cardiovascular: Normal peripheral perfusion Respiratory: no respiratory distress Gastrointestinal: Non distended Musculoskeletal: No deformity Results & Data Results & Data Vital Signs (Past 12 Hours) Vital Signs Temp Pulse Resp BP Pulse Ox O2 Del Method 08/11/24 09:01 140/67 08/11/24 09:00 83 20 97 08/11/24 08:00 133/71 08/11/24 08:00 80 25 H 97 08/11/24 07:09 78 91 08/11/24 07:00 127/68 08/11/24 06:00 81 26 H 109/84 94 Room Air 08/11/24 05:00 73 16 118/64 96 Room Air 08/11/24 04:00 36.6 C 08/11/24 04:00 73 12 128/63 93 Room Air 08/11/24 03:00 73 19 140/67 93 Room Air 08/11/24 02:00 71 25 H 122/58 L 96 Room Air 08/11/24 00:00 69 23 96/66 L 93 Room Air 08/11/24 00:00 69 08/10/24 23:00 69 25 H 123/73 92 Room Air 08/10/24 22:00 75 23 132/77 94 Critical Care Results & Data Vital Signs (Past 12 Hours) Vital Signs Temp Pulse Resp BP Pulse Ox O2 Del Method 08/11/24 09:01 140/67 08/11/24 09:00 83 20 97 08/11/24 08:00 133/71 08/11/24 08:00 80 25 H 97 08/11/24 07:09 78 91 08/11/24 07:00 127/68 08/11/24 06:00 81 26 H 109/84 94 Room Air 08/11/24 05:00 73 16 118/64 96 Room Air 08/11/24 04:00 36.6 C 08/11/24 04:00 73 12 128/63 93 Room Air 08/11/24 03:00 73 19 140/67 93 Room Air 08/11/24 02:00 71 25 H 122/58 L 96 Room Air 08/11/24 00:00 69 23 96/66 L 93 Room Air 08/11/24 00:00 69 08/10/24 23:00 69 25 H 123/73 92 Room Air 08/10/24 22:00 75 23 132/77 94 Lab & Micro Results (Past 24 Hours) RBC 3.63 M/uL (4.20-5.40) L 08/10/24 WBC 8.14 K/ul (4.8-10.8) 08/10/24 Hgb 11.5 g/dl (12.0-16.0) L 08/10/24 Hct 34.4 % (37.0-47.0) L 08/10/24 MCV 94.8 fL (80.0-100.0) 08/10/24 MCH 31.7 pg (25.0-34.0) 08/10/24 MCHC 33.4 g/dL (32.0-36.0) 08/10/24 RDW Standard Deviation 42.0 fL (36.4-46.3) 08/10/24 RDW Coefficient of Variation 12.0 % (11.5-14.5) 08/10/24 Plt Count 141 K/uL (130-400) 08/10/24 MPV 13.1 fL (9.4-12.4) H 08/10/24 Neutrophils (%) (Auto) 83.3 % 08/10/24 Lymphocytes (%) (Auto) 11.8 % 08/10/24 Monocytes # (Auto) 0.30 K/uL (0.11-0.59) 08/10/24 Eosinophils # (Auto) 0.04 K/uL (0.00-0.50) 08/10/24 Immature Granulocyte % (Auto) 0.2 % 08/10/24 Neutrophils # (Auto) 6.78 K/uL (1.40-6.50) H 08/10/24 Lymphocytes # (Auto) 0.96 K/uL (1.20-3.40) L 08/10/24 Monocytes # (Auto) 0.30 K/uL (0.11-0.59) 08/10/24 Eosinophils # (Auto) 0.04 K/uL (0.00-0.50) 08/10/24 Basophils # (Auto) 0.04 K/uL (0.00-0.20) 08/10/24 Immature Granulocyte # (Auto) 0.02 K/uL (0.01-0.20) 5 Na 139 mmol/L (136-145) 08/11/24 K 3.7 mmol/L (3.5-5.1) 08/11/24 Cl 102 mmol/L (98-107) 08/11/24 CO2 29 mmol/L (21-32) 08/11/24 Anion Gap 8 (3-11) 08/11/24 BUN 34 mg/dl (6-23) H 08/11/24 Creatinine 1.20 mg/dl (0.6-1.2) 08/11/24 BUN/Creatinine Ratio 28.3 (10-20) H 08/11/24 Glu 161 mg/dl (70-99(Fasting)) H 08/11/24 Ca 9.0 mg/dl (8.6-10.3) 08/11/24 Total Bilirubin 0.5 mg/dl (0.2-1.0) 08/11/24 Direct Bilirubin 0.1 mg/dl (0-0.2) 08/11/24 AST 76 U/L (13-39) H 08/11/24 ALT 107 U/L (7-52) H 08/11/24 Alkaline Phosphatase 121 U/L (34-104) H 08/11/24 TP 5.6 gm/dl (6.0-8.3) L 08/11/24 Albumin 3.5 gm/dl (3.4-5.0) 08/11/24 Calcium Level 9.0 mg/dl (8.6-10.3) 08/11/24 09:22 Diagnostic Findings (Past 24 Hours) Chest X-Ray 08/10/24 17:29 EXAM: X-ray chest one-view portable CLINICAL HISTORY: STEMI PRIORS: 03/06/2023, 05/20/2020 TECHNIQUE: Frontal view chest FINDINGS: The chest is well-expanded. Engorgement of the central pulmonary vasculature with mild interstitial prominence appearing in the interval. No confluent airspace consolidation. Heart size is normal. No pneumothorax. Trachea is patent. Moderate atherosclerotic disease of the aortic knob. Osseous structures demonstrate no acute abnormality. No radiopaque foreign body. IMPRESSION: Radiographic features favoring volume overload, appearing in the interval. Electronically signed by Kat Eckert 08-10-2024 7:02 PM I & O Totals 24 Hours 08/10/24 08/11/24 08/12/24 06:59 06:59 06:59 Intake Total 889.333 / 889.333 150 / 150 Output Total 1425 / 1425 Balance -535.667 / -535.667 150 / 150 Cumulative 08/10/24 10:32 thru 08/11/24 08:00 Intake Total 1039.333 Output Total 1425 Balance -385.667 RT Ventilator Mngmt (Last Documented) Ventilator Ordered Settings Respiratory Rate 20 08/11/24 09:00 Ventilator - PT Measurements Respiratory Rate 20 Coding Level of Care Code 18555 SUB INP/OBS CARE 25MIN Diagnoses STEMI (ST elevation myocardial infarction) I21.3 Dyslipidemia E78.5 Diabetes mellitus, type II E11.9
[2024-08-11 09:59] LABS: BUN Creatinine Ratio 28.3 (10-20); Creatinine Clr Calc Pharmacy 28.2 ml/min; Potassium 3.7 mmol/L (3.5-5.1)
[2024-08-11 12:43] LABS: Basophils # (auto) 0.03 K/uL (0.00-0.20); Basophils % (auto) 0.4 %; Eosinophils # (auto) 0.05 K/uL (0.00-0.50); Eosinophils % (auto) 0.7 %; Hemoglobin 11.1 g/dl (12.0-16.0); Immature Granulocytes # (auto) 0.01 K/uL (0.01-0.20); Immature Granulocytes % (auto) 0.1 %; Lymphocytes # (auto) 1.13 K/uL (1.20-3.40); Lymphocytes % (auto) 14.8 %; Mean Corpuscular Hemoglobin 31.6 pg (25.0-34.0); Mean Corpuscular Hgb Conc 33.6 g/dL (32.0-36.0); Monocytes # (auto) 0.42 K/uL (0.11-0.59); Monocytes % (auto) 5.5 %; Neutrophils # (auto) 6.02 K/uL (1.40-6.50); Neutrophils % (auto) 78.5 %; Platelet Count 152 K/uL (130-400); RDW Coefficient of Variation 12.3 % (11.5-14.5); RDW Standard Deviation 42.5 fL (36.4-46.3); Red Blood Count 3.51 M/uL (4.20-5.40); White Blood Count 7.66 K/ul (4.8-10.8)
--- NOTE | 2024-08-11 12:45 | Hospitalist Progress Note ---
Date of Service August 11, 2024 Assessment & Plan (1) STEMI (ST elevation myocardial infarction): (2) CKD (chronic kidney disease), stage III: (3) Hypomagnesemia: (4) Elevated LFTs: (5) Diabetes mellitus, type II: (6) Hypertension: (7) Dyslipidemia: (8) Depression: Plan: 84-year-old female with PMH HTN, dyslipidemia, DM II, CKD III, depression, anxiety, neuropathy, who had presented to ER 08/10 with complaint of chest pain that had started 1 day ago [employer]. She is being managed for the following: #STEMI Admitting EKG consistent with STEMI and heart alert was called. Initial HS troponin: 3899. In ER was given 324 mg aspirin, Brilinta 180 mg and started on IV heparin. She was taken to cardiac analytical laboratory technician LDL 113, A1c 6.7 S/P ENIO to RCA and LAD c/w DAPT, Metoprolol, statin. Cardio on board, Cardiology has resumed pt's home valsartan/HCTZ at lower dose 80mg/12.5mg (home dose was 160/12.5mg) Patient with prior history of statin intolerance. Will need to monitor F/u repeat ECHO #CKD III: about baseline, Monitor renal functions #Elevated LFTs: Likely 2/2 congestive hepatopathy iso vol overload 2/2 stemi. LFT trend improving, repeat lab in AM. #Hypomagnesium: Admitting magnesium of 1.5, monitor and replete. Other chronic medical conditions: Continue with/resume home meds as and when able T2DM: A1c of 6.7 this admission. Sliding scale insulin while inpatient. HTN: Patient's cardiac medications being optimized, see above. HLD: Statin has been started. Anxiety, depression: Continue home venlafaxine CODE STATUS: Wants CPR, defibrillation, medications but does not want intubation or ventilator. PT/OT, CM to assist with DC planning. Admission and Anticipated Discharge Date Admission Date: August 10, 2024 Subjective Patient was seen and examined at bedside. Patient was sitting up in chair, on room air, NAD, resting comfortably. Patient denies any further chest pain. Patient reports eating okay, denies shortness of breath. Physical Exam Physical Exam: General: no acute distress, WDWN Head: normocephalic, atraumatic Eyes: conjunctiva non-injected, anicteric ENT: normal inspection external ears, nose, mucous membranes moist Neck: supple, trachea midline Lungs: clear, no respiratory distress, no wheezing/rhonchi/rales CV: RRR, no murmur, no pretibial edema Abd: normal BS, soft, non-tender Ext: no cyanosis, no calf tenderness Neuro: A&O x 3, no focal deficits noted, anxious affect Skin: warm, dry Results & Data Results & Data Vital Signs (Past 12 Hours) Vital Signs Temp Pulse Resp BP Pulse Ox O2 Del Method 08/11/24 09:01 140/67 08/11/24 09:00 83 20 97 08/11/24 08:00 133/71 08/11/24 08:00 80 25 H 97 08/11/24 07:09 78 91 08/11/24 07:00 127/68 08/11/24 06:00 81 26 H 109/84 94 Room Air 08/11/24 05:00 73 16 118/64 96 Room Air 08/11/24 04:00 36.6 C 08/11/24 04:00 73 12 128/63 93 Room Air 08/11/24 03:00 73 19 140/67 93 Room Air 08/11/24 02:00 71 25 H 122/58 L 96 Room Air (8) Depression Depression Type: unspecified Qualified Code(s): F32.9 - Major depressive disorder, single episode, unspecified
--- NOTE | 2024-08-11 12:47 | XCELERA ---
[id number]
[2024-08-11] MEDS: APIXABAN 5 MG TABLET PO SCH (14:30)
--- NOTE | 2024-08-11 14:35 | Electrocardiogram Report ---
Test Reason : Blood Pressure : */* mmHG Vent. Rate : 82 BPM Atrial Rate : 82 BPM P-R Int : 144 ms QRS Dur : 96 ms QT Int : 390 ms P-R-T Axes : 78 1 204 degrees QTcB Int : 455 ms Normal sinus rhythm Possible Left atrial enlargement Abnormal ECG When compared with ECG of 10-Aug-2024 13:20, Left bundle branch block is no longer Present Confirmed by Ferdinand Mansfield ([id number]) on 08/11/2024 2:34:43 PM Referred By: REFERRED SELF Confirmed By: Ferdinand Mansfield
[2024-08-11] MEDS: POTASSIUM CHLORIDE CRTAB 20 MEQ TABCR PO STA (16:12)
[2024-08-11] MEDS: METOPROLOL SUCC 25MG EXT REL TAB PO SCH (19:58)
[2024-08-11] MEDS: VALSARTAN/SACUBITRIL 26/24MG TAB PO SCH (19:58)
[2024-08-12 06:45] LABS: Albumin Level 3.5 gm/dl (3.4-5.0); BUN Creatinine Ratio 25.3 (10-20); Bilirubin Direct 0.1 mg/dl (0-0.2); Bilirubin,Total 0.5 mg/dl (0.2-1.0); Calcium 8.8 mg/dl (8.6-10.3); Creatinine Clr Calc Pharmacy 23.3 ml/min; Magnesium 1.7 mg/dl (1.7-2.4); Phosphorus 3.2 mg/dl (2.5-4.9); Potassium 3.6 mmol/L (3.5-5.1); Total Protein 5.4 gm/dl (6.0-8.3)
[2024-08-12] MEDS: MAGNESIUM SULFATE / D5W 1 GM/100 ML BAG IV SCH (09:39)
[2024-08-12] MEDS: POTASSIUM CHLORIDE CRTAB 20 MEQ TABCR PO STA (09:39)
[2024-08-12] MEDS ORDERED: CARBOHYDRATES FOR HYPOGLYCEMIA PO PRN (12:19)
[2024-08-12] MEDS ORDERED: GLUCOSE 10 TAB/TUBE PO PRN (12:19)
[2024-08-12] MEDS ORDERED: GLUCOSE 40% GEL 15 GM TUBE PO PRN (12:19)
[2024-08-12] MEDS ORDERED: DEXTROSE 50% 50 ML SYRINGE IV PRN (12:19)
[2024-08-12] MEDS ORDERED: GLUCAGON FOR INJ 1 MG VIAL SQ PRN (12:19)
[2024-08-12 12:21] LABS: Basophils # (auto) 0.02 K/uL (0.00-0.20); Basophils % (auto) 0.3 %; Eosinophils # (auto) 0.15 K/uL (0.00-0.50); Eosinophils % (auto) 1.9 %; Hematocrit (blood only) 32.4 % (37.0-47.0); Hemoglobin 10.9 g/dl (12.0-16.0); Immature Granulocytes # (auto) 0.02 K/uL (0.01-0.20); Immature Granulocytes % (auto) 0.3 %; Lymphocytes # (auto) 1.02 K/uL (1.20-3.40); Lymphocytes % (auto) 12.9 %; Mean Corpuscular Hemoglobin 31.9 pg (25.0-34.0); Mean Corpuscular Hgb Conc 33.6 g/dL (32.0-36.0); Mean Corpuscular Volume 94.7 fL (80.0-100.0); Monocytes % (auto) 6.3 %; Neutrophils # (auto) 6.21 K/uL (1.40-6.50); Neutrophils % (auto) 78.3 %; Platelet Count 137 K/uL (130-400); RDW Coefficient of Variation 12.1 % (11.5-14.5); RDW Standard Deviation 42.5 fL (36.4-46.3); Red Blood Count 3.42 M/uL (4.20-5.40); White Blood Count 7.92 K/ul (4.8-10.8)
[2024-08-12] MEDS: INSULIN ASPART PER UNIT CHARGE SC STA (12:59)
--- NOTE | 2024-08-12 13:23 | Cardiology Progress Note ---
Date of Service August 12, 2024 Assessment & Plan (1) ST elevation (STEMI) myocardial infarction: (2) Coronary artery disease: (3) Dyslipidemia: (4) Hypertension: (5) Ischemic cardiomyopathy: (6) Left ventricular apical thrombus: Plan 08/11/24: Patient admitted yesterday with acute inferior STEMI with multivessel disease noted by cardiac cath. Received ENIO to the RCA for actue thrombosis and severe prox LAD disease also noted for swhich she received single long ENIO to the LAD with good results. She has other distal RCA disease and OM disease for which medical management is recommended. Patient tolerated procedure without issues. Echo pending this morning. No chest pain/SOB overnight. Vitals stable. Will need dual antiplatelet therapy with ASA and Brilinta for minimum of 1 year. Started on statin - atorvastatin 40 mg daily. Long history of untreated hyp erlipidemia. Continue home dose valsartan 80 mg daily Pending renal function and echo results this morning, she may benefit from transitioning to Entresto with spironolactone, and maybe loop diuretic Currently appears euvolemic. Consider stopping/holding hctz Consider nitrates for recurrent anginal symptoms as well. 08/12/24: patient admitted with acute STEMI receiving ENIO to the RCA and LAD Severe LV dysfunction noted on echo with EF 30-35% Small apical mural thrombus also noted on echo. Continue Brilinta. Aspirin discontinued in favor of Eliquis given apical thrombus. Will reduce Eliquis dose to 2.5 mg BID given age > 79, weight less than 60 kg and variable creatinine. Continue metoprolol succinate and Entresto - initiated yesterday for severe LV dysfunction. Monitor renal function Magnesium 1.7 this morning and has been supplemented. Case discussed with Dr. Whitaker I spent a total of 30 minutes on the date of service in preparation, delivery, and documentation of the care provided to this patient, excluding any time spent in the performance of separately billed services. Ai Esposito PA-C Department of Cardiology, [facility] This chart was completed in part utilizing Speech Voice Recognition Software. Grammatical errors, random word insertions, pronoun errors, and incomplete sentences are an occasional consequence of this system due to software limitations, ambient noise, and hardware issues. Any formal questions or concerns about the content, text, or information contained within the body of this dictation should be directly addressed to the provider for clarification. Admission and Anticipated Discharge Date Admission Date: August 10, 2024 Supervising Physician Co-Signing Physician Notes I have personally performed a history and physical examination on the patient. I have reviewed the advance practitioner's documentation, and I agree with, and take responsibility for the plan of care. 84-year-old female admitted secondary to ST elevation myocardial infarction. Drug-eluting stent implanted to the right coronary artery and proximal LAD without complication. Echocardiogram revealing severe LV systolic dysfunction, LVEF 30-35%, with small laminar thrombus. Currently recovering well without recurrent angina. Mild volume overload today. Recommendations: * Lasix 20mg IV x 1 now. * Continue Brilinta uninterrupted for minimum of 1 year post PCI. * Reduce Eliquis 2.5 mg twice daily due to age and weight * Entresto added 08/11/2024. * Discontinue metoprolol to tartrate in favor of succinate formulation. * Consider addition of spironolactone during hospitalization. * Supplement potassium and magnesium as indicated. Brian Whitaker DO, [facility] Subjective Patient resting in bed comfortably today. Reports intermittent palpitations. Only intermittent PVC's noted on telemetry. No concerning arrhythmias. No chest pain or SOB. Review of Systems Review of Systems: All systems reviewed & are unremarkable except as noted in HPI & below Physical Exam Constitutional: WD/WN, vitals as above average body habitus; no acute distress Neck: trachea midline, no thyromegaly Respiratory: normal respiratory effort Auscultation: + diminished lung sounds; no crackles and no rales Cardiovascular: Rate/Rhythm: regular rate and regular rhythm Heart Sounds: normal S1 and normal S2; no murmur Vessels: no JVD Extremities: no edema Gastrointestinal (Abdomen): normal bowel sounds, soft, nontender, no hepatosplenomegaly Musculoskeletal: no cyanosis or clubbing, extremities motor strength 5/5 Neurologic: PERRL, EOMI, accommodation nl, no face palsy, no dysarthria Psychiatric: A+Ox3, euthymic affect Results & Data Vital Signs (Past 12 Hours) Vital Signs Temp Pulse Resp BP Pulse Ox O2 Del Method 08/12/24 11:06 36.5 C 78 17 122/72 97 Room Air 08/12/24 07:59 36.4 C L 73 16 133/70 94 Room Air 08/12/24 03:29 36.5 C 67 16 116/64 94 Room Air Laboratory Results Cardiac Enzymes 08/12/24 Range/Units 05:59 AST 57 H (13-39) U/L CBC 08/12/24 Range/Units 12:05 WBC 7.92 (4.8-10.8) K/ul RBC 3.42 L (4.20-5.40) M/uL Hgb 10.9 L (12.0-16.0) g/dl Hct 32.4 L (37.0-47.0) % Plt Count 137 (130-400) K/uL Neut # (Auto) 6.21 (1.40-6.50) K/uL Lymph # (Auto) 1.02 L (1.20-3.40) K/uL [place] # (Auto) 0.50 (0.11-0.59) K/uL Eos # (Auto) 0.15 (0.00-0.50) K/uL Baso # (Auto) 0.02 (0.00-0.20) K/uL Comprehensive Metabolic Panel 08/12/24 Range/Units 05:59 Sodium 138 (136-145) mmol/L Potassium 3.6 (3.5-5.1) mmol/L Chloride 104 (98-107) mmol/L Carbon Dioxide 31 (21-32) mmol/L BUN 37 H (6-23) mg/dl Creatinine 1.46 H (0.6-1.2) mg/dl Glucose 164 H (70-99(Fasting)) mg/dl Calcium 8.8 (8.6-10.3) mg/dl Direct Bilirubin 0.1 (0-0.2) mg/dl AST 57 H (13-39) U/L ALT 96 H (7-52) U/L Alkaline Phosphatase 112 H (34-104) U/L Total Protein 5.4 L (6.0-8.3) gm/dl Albumin 3.5 (3.4-5.0) gm/dl Intake and Output 08/11/24 08/12/24 08/12/24 22:59 06:59 14:59 Intake Total 595 / 1245 150 / 1245 100 / 100 Output Total 150 / 326 Balance 445 / 919 150 / 919 99 / 99 Intake: IV 100 / 100 Magnesium Sulfate / D5w 1 gm In 100 / 100 100 ml @ 50 mls/hr IV Q2H STEVAN Rx#:[id number] Oral 595 / 1245 150 / 1245 Output: Urine 150 / 325 # Bowel Movements Other: # Unmeasured Voids 1 1 2 Weight 59.5 kg Weight Measurement Method Built in [facility] Diagnostic Findings Telemetry reviewed: NSR 70-90's. Rare PVC's Echo report reviewed from yesterday: Severe LV dysfunction with EF 30-35% New segmental wall motion abnormalities involving the RCA and LAD territories Possible small apical thrombus Normal RV function Mild to mod MR and mild TR Medications Administered Current Inpatient Medications Acetaminophen (Acetaminophen 325 Mg Tab) 650 mg PO Q4H PRN PRN Reason: MILD Pain (Scale 1,2,3) Stop: 09/09/24 12:09 Apixaban (Apixaban 2.5 Mg Tab) 2.5 mg PO 0900,2200 [facility] Stop: 09/11/24 21:59 Atorvastatin Calcium (Atorvastatin 40 Mg Tab) 40 mg PO QAM STEVAN Stop: 09/10/24 08:59 Last Admin: 08/12/24 08:15 Dose: 40 mg Atropine Sulfate (Atropine Sulfate 0.1 Mg/Ml 10ml Syr) 0.5 mg IV UD PRN PRN Reason: bradycardia/hypotension Stop: 09/09/24 12:09 Dextrose (Dextrose 50% 50 Ml Syringe) 25 - 50 ml IV UD PRN; Protocol PRN Reason: Hypoglycemia Protocol Stop: 09/11/24 12:18 Gabapentin (Gabapentin 100 Mg Cap) 200 mg PO HS STEVAN Stop: 09/09/24 20:59 Last Admin: 08/11/24 19:56 Dose: 200 mg Glucagon (Glucagon For Inj 1 Mg Vial) 1 mg SQ UD PRN; Protocol PRN Reason: Hypoglycemia Protocol Stop: 09/11/24 12:18 Glucose (Glucose 40% Gel 15 Gm Tube) 15 - 30 gm PO UD PRN; Protocol PRN Reason: Hypoglycemia Protocol Stop: 09/11/24 12:18 Glucose (Glucose 10 Tab/Tube) 4 - 8 tab PO UD PRN; Protocol PRN Reason: Hypoglycemia Protocol Stop: 09/11/24 12:18 Hydrochlorothiazide (Hydrochlorothiazide 25 Mg Tab) 12.5 mg PO DAILY STEVAN Stop: 09/10/24 08:59 Last Admin: 08/11/24 08:53 Dose: 12.5 mg Insulin Aspart (Insulin Aspart Per Unit Charge) 0 units SC ACHS [facility] Stop: 09/11/24 16:29 Metoprolol Succinate (Metoprolol Succ 25mg Ext Rel Tab) 25 mg PO BID [facility] Stop: 09/10/24 20:59 Last Admin: 08/12/24 09:56 Dose: 25 mg Miscellaneous (Carbohydrates For Hypoglycemia ) 15 - 30 gm PO UD PRN PRN Reason: Hypoglycemia Protocol Stop: 09/11/24 12:18 Ondansetron HCl (Ondansetron Inj 2 Mg/Ml 2 Ml Vial) 4 mg IV Q6H PRN PRN Reason: Nausea And Vomiting Stop: 09/09/24 12:09 Sacubitril/Valsartan (Valsartan/Sacubitril 26/24mg Tab) 1 tab PO BID [facility] Stop: 09/10/24 20:59 Last Admin: 08/12/24 08:14 Dose: 1 tab Ticagrelor (Ticagrelor 90 Mg Tab) 90 mg PO BID [facility] Stop: 09/10/24 08:59 Last Admin: 08/12/24 08:16 Dose: 90 mg Venlafaxine HCl (Venlafaxine Hcl Xr 150 Mg Capxr) 150 mg PO DAILY [facility] Stop: 09/09/24 14:44 Last Admin: 08/12/24 08:16 Dose: 150 mg (1) ST elevation (STEMI) myocardial infarction Involved coronary artery: LAD coronary artery Qualified Code(s): I21.02 - ST elevation (STEMI) myocardial infarction involving left anterior descending coronary artery
--- NOTE | 2024-08-12 15:15 | Hospitalist Progress Note ---
Date of Service August 12, 2024 Assessment & Plan (1) STEMI (ST elevation myocardial infarction): (2) CKD (chronic kidney disease), stage III: (3) Hypomagnesemia: (4) Elevated LFTs: (5) Diabetes mellitus, type II: (6) Hypertension: (7) Dyslipidemia: (8) Depression: Plan: 84-year-old female with PMH HTN, dyslipidemia, DM II, CKD III, depression, anxiety, neuropathy, who had presented to ER 08/10 with complaint of chest pain that had started 1 day ago [employer]. She is being managed for the following: STEMI Admitting EKG consistent with STEMI and heart alert was called. Initial HS troponin: 3899. In ER was given 324 mg aspirin, Brilinta 180 mg and started on IV heparin. She was taken to [facility] LDL 113, A1c 6.7 Post cath ECHO 08/11 - ECHO EF 30-35%, New segmental wall motion abnormalities involving the RCA and LAD territory myocardium, small apical thrombus noted. S/P ENIO to RCA and LAD c/w DAPT, Metoprolol, statin. Cardio on board, DC valsartan/HCTZ, entresto added 08/11. Patient with prior history of statin intolerance. Will need to monitor F/u repeat Left ventricular apical thrombus: Noted in ECHO, Patient started on Eliquis. continue. CKD III: about baseline, Monitor renal functions Elevated LFTs: Likely 2/2 congestive hepatopathy iso vol overload 2/2 stemi. LFT trend improving, repeat lab in AM. Hypomagnesium: Admitting magnesium of 1.5, monitor and replete. Other chronic medical conditions: Continue with/resume home meds as and when able T2DM: A1c of 6.7 this admission. Sliding scale insulin while inpatient. HTN: Patient's cardiac medications being optimized, see above. HLD: Statin has been started. Anxiety, depression: Continue home venlafaxine CODE STATUS: Wants CPR, defibrillation, medications but does not want intubation or ventilator. PT/OT, CM to assist with DC planning. Admission and Anticipated Discharge Date Admission Date: August 10, 2024 Subjective Patient was seen and examined at bedside. Patient was sitting up in bed, reading book, on room air, NAD, resting comfortably. Patient denies any further chest pain. Patient reports eating okay, denies shortness of breath. Physical Exam Physical Exam: General: no acute distress, WDWN Head: normocephalic, atraumatic Eyes: conjunctiva non-injected, anicteric ENT: normal inspection external ears, nose, mucous membranes moist Neck: supple, trachea midline Lungs: clear, no respiratory distress, no wheezing/rhonchi/rales CV: RRR, no murmur, no pretibial edema Abd: normal BS, soft, non-tender Ext: no cyanosis, no calf tenderness Neuro: A&O x 3, no focal deficits noted, anxious affect Skin: warm, dry Results & Data Results & Data Vital Signs (Past 12 Hours) Vital Signs Temp Pulse Pulse Resp BP Pulse Ox O2 Del Method 08/12/24 15:00 77 08/12/24 11:06 36.5 C 78 17 122/72 97 Room Air 08/12/24 07:59 36.4 C L 73 16 133/70 94 Room Air 08/12/24 03:29 36.5 C 67 16 116/64 94 Room Air (8) Depression Depression Type: unspecified Qualified Code(s): F32.9 - Major depressive disorder, single episode, unspecified
[2024-08-12] MEDS: INSULIN ASPART PER UNIT CHARGE SC SCH (17:58)
[2024-08-12] MEDS: FUROSEMIDE INJ 20 MG/2 ML VIAL IV ONE (17:58)
[2024-08-12] MEDS: APIXABAN 2.5 MG TAB PO SCH (20:33)
--- NOTE | 2024-08-12 20:52 | Electrocardiogram Report ---
Test Reason : Blood Pressure : */* mmHG Vent. Rate : 77 BPM Atrial Rate : 77 BPM P-R Int : 148 ms QRS Dur : 100 ms QT Int : 396 ms P-R-T Axes : 90 1 142 degrees QTcB Int : 448 ms Normal sinus rhythm Cannot rule out Anterior infarct (cited on or before 10-Aug-2024) Inferior injury pattern ACUTE IN / STEMI Consider right ventricular involvement in acute inferior infarct Abnormal ECG When compared with ECG of 10-Aug-2024 10:41, (unconfirmed) Serial changes of evolving Anterior infarct Present Confirmed by Ferdinand Mansfield ([id number]) on 08/12/2024 8:52:16 PM Referred By: REFERRED SELF Confirmed By: Ferdinand Mansfield
--- NOTE | 2024-08-12 20:53 | Electrocardiogram Report ---
Test Reason : Blood Pressure : */* mmHG Vent. Rate : 67 BPM Atrial Rate : * BPM P-R Int : * ms QRS Dur : 92 ms QT Int : 400 ms P-R-T Axes : * 38 148 degrees QTcB Int : 422 ms Accelerated Junctional rhythm Minimal voltage criteria for LVH, may be normal variant Anteroseptal infarct , new Inferior injury pattern ACUTE WA / STEMI Consider right ventricular involvement in acute inferior infarct Abnormal ECG When compared with ECG of 26-Mar-2018 17:31, Junctional rhythm has replaced Sinus rhythm Acute Anteroseptal infarct is now Present Confirmed by Ferdinand Mansfield ([id number]) on 08/12/2024 8:52:43 PM Referred By: REFERRED SELF Confirmed By: Ferdinand Mansfield
[2024-08-13 06:47] LABS: Albumin Globulin Ratio 1.7 (0.9-2); Albumin Level 3.3 gm/dl (3.4-5.0); BUN Creatinine Ratio 26.2 (10-20); Bilirubin,Total 0.5 mg/dl (0.2-1.0); Calcium 8.8 mg/dl (8.6-10.3); Globulin 1.9 gm/dl (2.5-4.0); Magnesium 1.9 mg/dl (1.7-2.4); Potassium 3.5 mmol/L (3.5-5.1); Total Protein 5.2 gm/dl (6.0-8.3)
[2024-08-13] MEDS: SODIUM CHLORIDE 0.65% NA SOLN 45 ML (OCEAN) ONE (08:39)
[2024-08-13] MEDS: POTASSIUM CHLORIDE CRTAB 20 MEQ TABCR PO STA (10:33)
--- NOTE | 2024-08-13 13:28 | Cardiology Progress Note ---
Date of Service August 13, 2024 Assessment & Plan (1) ST elevation (STEMI) myocardial infarction: (2) Coronary artery disease: (3) Dyslipidemia: (4) Hypertension: (5) Ischemic cardiomyopathy: (6) Left ventricular apical thrombus: Plan 08/11/24: Patient admitted yesterday with acute inferior STEMI with multivessel disease noted by cardiac cath. Received ENIO to the RCA for actue thrombosis and severe prox LAD disease [facility] ENIO to the LAD with good results. She has other distal RCA disease and OM disease for which medical management is recommended. Patient tolerated procedure without issues. Echo pending this morning. No chest pain/SOB overnight. Vitals stable. Will need dual antiplatelet therapy with ASA and Brilinta for minimum of 1 year. Started on statin - atorvastatin 40 mg daily. Long history of untreated hyp erlipidemia. Continue home dose valsartan 80 mg daily Pending renal function and echo results this morning, she may benefit from transitioning to Entresto with spironolactone, and maybe loop diuretic Currently appears euvolemic. Consider stopping/holding hctz Consider nitrates for recurrent anginal symptoms as well. 08/12/24: patient admitted with acute STEMI receiving ENIO to the RCA and LAD Severe LV dysfunction noted on echo with EF 30-35% Small apical mural thrombus also noted on echo. Continue Brilinta. Aspirin discontinued in favor of Eliquis given apical thrombus. Will reduce Eliquis dose to 2.5 mg BID given age > 79, weight less than 60 kg and variable creatinine. Continue metoprolol succinate and Entresto - initiated yesterday for severe LV dysfunction. Monitor renal function Magnesium 1.7 this morning and has been supplemented. 08/13/24 She appears euvolemic on exam Symptomatically improved from a cardiac perspective Recommend continuing Brilinta, apixaban, Toprol, atorvastatin, and Entresto In order to optimize GDMT will also add Aldactone and Jardiance Case discussed with Dr. Yuen A total of 50 minutes on the date of service in preparation, delivery, and do cumentation of the care provided to this patient, excluding any time spent in the performance of separately billed services. WILLIAM Farmer Department of Cardiology, [facility] This chart was completed in part utilizing Speech Voice Recognition Software. Grammatical errors, random word insertions, pronoun errors, and incomplete sentences are an occasional consequence of this system due to software limitations, ambient noise, and hardware issues. Any formal questions or concerns about the content, text, or information contained within the body of this dictation should be directly addressed to the provider for clarification. Admission and Anticipated Discharge Date Admission Date: August 10, 2024 Supervising Physician Co-Signing Physician Notes I have seen and examined the patient above and have reviewed all relevant laboratory values and studies. I agree with the assessment and plan as outlined by WILLIAM Tao Subjective 84 year old female seen in cardiology follow in in regard to CHF/NSTEMI Reportedly feeling much better today. Has been able to ambulate around the room without any symptoms. Feeling that she is back to her baseline. Review of Systems Respiratory: no cough and no dyspnea Cardiovascular: no chest pain, no dyspnea on exertion, no palpitations and no edema Physical Exam Constitutional: WD/WN, vitals as above well developed and well nourished; no acute distress Eyes: PERRL, conjunctivae normal, anicteric sclerae Neck: trachea midline, no thyromegaly trachea midline Respiratory: normal respiratory effort, lungs clear to auscultation normal respiratory effort; no respiratory distress Cardiovascular: Rate/Rhythm: regular rate and regular rhythm Vessels: no JVD Extremities: normal capillary refill; no edema Chest (Breasts): normal inspection/palpation of breasts Skin: no rashes, warm and dry Psychiatric: A+Ox3, euthymic affect Results & Data Vital Signs (Past 12 Hours) Vital Signs Temp Pulse Pulse Resp BP Pulse Ox O2 Del Method 08/13/24 11:27 36.7 C 74 16 116/61 97 Room Air 08/13/24 09:03 36.4 C L 75 18 111/66 97 Room Air 08/13/24 08:03 Room Air 08/13/24 07:08 72 08/13/24 02:55 36.6 C 75 14 123/70 96 Room Air Laboratory Results Laboratory Results WBC 7.92 K/ul (4.8-10.8) 08/12/24 12:05 RBC 3.42 M/uL (4.20-5.40) L 08/12/24 12:05 Hgb 10.9 g/dl (12.0-16.0) L 08/12/24 12:05 Hct 32.4 % (37.0-47.0) L 08/12/24 12:05 MCV 94.7 fL (80.0-100.0) 08/12/24 12:05 MCH 31.9 pg (25.0-34.0) 08/12/24 12:05 MCHC 33.6 g/dL (32.0-36.0) 08/12/24 12:05 RDW Std Deviation 42.5 fL (36.4-46.3) 08/12/24 12:05 RDW Coeff of Dawn 12.1 % (11.5-14.5) 08/12/24 12:05 Plt Count 137 K/uL (130-400) 08/12/24 12:05 MPV 13.0 fL (9.4-12.4) H 08/12/24 12:05 Immature Gran % (Auto) 0.3 % 08/12/24 12:05 Neut % (Auto) 78.3 % 08/12/24 12:05 Lymph % (Auto) 12.9 % 08/12/24 12:05 [place] % (Auto) 6.3 % 08/12/24 12:05 Eos % (Auto) 1.9 % 08/12/24 12:05 Baso % (Auto) 0.3 % 08/12/24 12:05 Neut # (Auto) 6.21 K/uL (1.40-6.50) 08/12/24 12:05 Lymph # (Auto) 1.02 K/uL (1.20-3.40) L 08/12/24 12:05 [place] # (Auto) 0.50 K/uL (0.11-0.59) 08/12/24 12:05 Eos # (Auto) 0.15 K/uL (0.00-0.50) 08/12/24 12:05 Baso # (Auto) 0.02 K/uL (0.00-0.20) 08/12/24 12:05 Immature Gran # (Auto) 0.02 K/uL (0.01-0.20) 08/12/24 12:05 PT 11.6 Seconds (9.0-12.0) 08/10/24 10:45 INR 1.1 (0.9-1.1) 08/10/24 10:45 APTT 25 Seconds (21-31) 08/10/24 10:45 PTT Ratio 0.9 08/10/24 10:45 Activ Coag Time Kaolin 245 SECONDS (94-140) H 08/10/24 12:07 Sodium 139 mmol/L (136-145) 08/13/24 05:43 Potassium 3.5 mmol/L (3.5-5.1) 08/13/24 05:43 Chloride 103 mmol/L (98-107) 08/13/24 05:43 Carbon Dioxide 28 mmol/L (21-32) 08/13/24 05:43 Anion Gap 8 (3-11) 08/13/24 05:43 BUN 39 mg/dl (6-23) H 08/13/24 05:43 Creatinine 1.49 mg/dl (0.6-1.2) H 08/13/24 05:43 Est Cr Clr Drug Dosing 23.0 ml/min 08/13/24 05:43 eGFR 34.21 08/13/24 05:43 BUN/Creatinine Ratio 26.2 (10-20) H 08/13/24 05:43 Glucose 140 mg/dl (70-99(Fasting)) H 08/13/24 05:43 POC Glucose 200 mg/dl (70-99) H 08/13/24 12:13 Estimat Average Glucose 146 mg/dl 08/10/24 13:54 Hemoglobin A1c 6.7 % (4.5-5.6) H 08/10/24 13:54 Calcium 8.8 mg/dl (8.6-10.3) 08/13/24 05:43 Phosphorus 3.2 mg/dl (2.5-4.9) 08/12/24 05:59 Magnesium 1.9 mg/dl (1.7-2.4) 08/13/24 05:43 Total Bilirubin 0.5 mg/dl (0.2-1.0) 08/13/24 05:43 Direct Bilirubin 0.1 mg/dl (0-0.2) 08/12/24 05:59 AST 33 U/L (13-39) 08/13/24 05:43 ALT 68 U/L (7-52) H 08/13/24 05:43 Alkaline Phosphatase 107 U/L (34-104) H 08/13/24 05:43 Total Creatine Kinase 218 U/L (26-192) H 08/10/24 10:45 Troponin I High Sens 7685.5 pg/ml (0-14) H* 08/11/24 02:05 B-Natriuretic Peptide 1900 pg/ml (0-100) H 08/10/24 10:45 Total Protein 5.2 gm/dl (6.0-8.3) L 08/13/24 05:43 Albumin 3.3 gm/dl (3.4-5.0) L 08/13/24 05:43 Globulin 1.9 gm/dl (2.5-4.0) L 08/13/24 05:43 Albumin/Globulin Ratio 1.7 (0.9-2) 08/13/24 05:43 Triglycerides 108 mg/dl (0-150) 08/11/24 04:42 Cholesterol 180 mg/dl (0-200) 08/11/24 04:42 LDL Cholesterol, Calc 113 mg/dl 08/11/24 04:42 VLDL Cholesterol, Calc 22 mg/dl (0-30) 08/11/24 04:42 HDL Cholesterol 45 mg/dl 08/11/24 04:42 Cholesterol/HDL Ratio 4.0 (0-5) 08/11/24 04:42 Lipase 30 U/L (11-82) 08/10/24 10:45 TSH 4.069 uIu/ml (0.300-4.500) 08/10/24 10:45 Nasal Screen MRSA (PCR) Negative (Negative) 08/10/24 13:48 Impressions Chest X-Ray 08/10/24 17:29 EXAM: X-ray chest one-view portable CLINICAL HISTORY: STEMI PRIORS: 03/06/2023, 05/20/2020 TECHNIQUE: Frontal view chest FINDINGS: The chest is well-expanded. Engorgement of the central pulmonary vasculature with mild interstitial prominence appearing in the interval. No confluent airspace consolidation. Heart size is normal. No pneumothorax. Trachea is patent. Moderate atherosclerotic disease of the aortic knob. Osseous structures demonstrate no acute abnormality. No radiopaque foreign body. IMPRESSION: Radiographic features favoring volume overload, appearing in the interval. Electronically signed by Kat Eckert 08-10-2024 7:02 PM (1) ST elevation (STEMI) myocardial infarction Involved coronary artery: LAD coronary artery Qualified Code(s): I21.02 - ST elevation (STEMI) myocardial infarction involving left anterior descending coronary artery
[2024-08-13] MEDS: SPIRONOLACTONE 25 MG TAB PO SCH (13:58)
[2024-08-13] MEDS: EMPAGLIFLOZIN 10 MG TAB PO SCH (13:58)
--- NOTE | 2024-08-13 16:33 | Hospitalist Progress Note ---
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 She is being managed for the following: STEMI Admitting EKG consistent with STEMI and heart alert was called. Initial HS troponin: 3899. In ER was given 324 mg aspirin, Brilinta 180 mg and started on IV heparin. 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 S/P ENIO to RCA and LAD c/w DAPT, Metoprolol, statin. Cardio on board, DC valsartan/hold HCTZ, entresto added 08/11. jardiance and aldactone added 08/13. Patient with prior history of statin intolerance. Will need to monitor F/u repeat Left ventricular apical thrombus: Noted in ECHO, Patient started on Eliquis. continue. CKD III: about baseline, Monitor renal functions Elevated LFTs: Likely 2/2 congestive hepatopathy iso vol overload 2/2 stemi. LFT trend improving. Hypomagnesium: Admitting magnesium of 1.5, monitor and replete. Other chronic medical conditions: Continue with/resume home meds as and when able T2DM: A1c of 6.7 this admission. Sliding scale insulin while inpatient. HTN: Patient's cardiac medications being optimized, see above. HLD: Statin has been started. Anxiety, depression: Continue home venlafaxine CODE STATUS: Wants CPR, defibrillation, medications but does not want intubation or ventilator. PT/OT, CM to assist with DC planning. Admission and Anticipated Discharge Date Admission Date: August 10, 2024 Subjective Patient was seen and examined at bedside. Patient was ambulating in room, on room air, NAD Patient denies any further chest pain. Patient reports eating okay, denies shortness of breath. Physical Exam Physical Exam: General: no acute distress, WDWN Head: normocephalic, atraumatic Eyes: conjunctiva non-injected, anicteric ENT: normal inspection external ears, nose, mucous membranes moist Neck: supple, trachea midline Lungs: clear, no respiratory distress, no wheezing/rhonchi/rales CV: RRR, no murmur, no pretibial edema Abd: normal BS, soft, non-tender Ext: no cyanosis, no calf tenderness Neuro: A&O x 3, no focal deficits noted, anxious affect Skin: warm, dry Results & Data Results & Data Vital Signs (Past 12 Hours) Vital Signs Temp Pulse Pulse Resp BP Pulse Ox O2 Del Method 08/13/24 14:00 77 08/13/24 11:27 36.7 C 74 16 116/61 97 Room Air 08/13/24 09:03 36.4 C L 75 18 111/66 97 Room Air 08/13/24 08:03 Room Air 08/13/24 07:08 72 (8) Depression Depression Type: unspecified Qualified Code(s): F32.9 - Major depressive disorder, single episode, unspecified
[2024-08-14 06:17] LABS: Albumin Globulin Ratio 1.7 (0.9-2); Albumin Level 3.3 gm/dl (3.4-5.0); Bilirubin,Total 0.4 mg/dl (0.2-1.0); Calcium 8.8 mg/dl (8.6-10.3); Creatinine Clr Calc Pharmacy 26.4 ml/min; Globulin 1.9 gm/dl (2.5-4.0); Magnesium 1.8 mg/dl (1.7-2.4); Phosphorus 2.8 mg/dl (2.5-4.9); Total Protein 5.2 gm/dl (6.0-8.3)
[2024-08-14 08:01] VITALS: RESP 18; TEMP 97.9; O2SAT 98
[2024-08-14 12:02] VITALS: BP 111/71
--- NOTE | 2024-08-14 13:53 | Discharge Summary ---
Date of Service August 14, 2024 Admission HPI Per Admitting Provider Patient is 84-year-old female with PMH HTN, dyslipidemia, DM II, CKD III, depression, anxiety, neuropathy, who had presented to ER today with complaint of chest pain that had started yesterday. In ER EKG consistent with STEMI and heart alert was called. Initial HS troponin: 3899. She was given 324 mg aspirin, Brilinta 180 mg and ordered IV heparin. She was taken to cardiac oil laboratory analyst and is s/p ENIO to RCA and LAD. Patient seen in ICU and reports that she is feeling very anxious. She reports chronic anxiety and with her anxiety she feels SOB. She states she is feeling anxious and SOB and reports feels like she u sually does when she is anxious. Denies any current CP. She states has a lot of stress. Earlier today had diaphoresis with the chest pain but denies any since. Denies fever/chills, N/V/D/C, WALKER, dizziness, syncope, vision changes, palpitations, cough, sore throat, rhinorrhea, abdominal pain, increased paresthesias, extremity weakness, extremity edema, rashes, urinary symptoms. Admission Exam Per Admitting Provider General: no acute distress, WDWN Head: normocephalic, atraumatic Eyes: conjunctiva non-injected, anicteric ENT: normal inspection external ears, nose, mucous membranes moist Neck: supple, trachea midline Lungs: clear, no respiratory distress, no wheezing/rhonchi/rales CV: RRR, no murmur, no pretibial edema Abd: normal BS, soft, non-tender Ext: no cyanosis, no calf tenderness, right groin with pressure dressing intact and dry Neuro: A&O x 3, no focal deficits noted, anxious affect Skin: warm, dry Principal Diagnosis STEMI Left ventricular apical thrombus Discharge Exam General: no acute distress, WDWN Head: normocephalic, atraumatic Eyes: conjunctiva non-injected, anicteric ENT: normal inspection external ears, nose, mucous membranes moist Neck: supple, trachea midline Lungs: clear, no respiratory distress, no wheezing/rhonchi/rales CV: RRR, no murmur, no pretibial edema Abd: normal BS, soft, non-tender Ext: no cyanosis, no calf tenderness Neuro: A&O x 3, no focal deficits noted, anxious affect Skin: warm, dry Discharge Data Allergies Allergy/AdvReac Type Severity Reaction Status Date / Time Sulfa (Sulfonamide Allergy Mild RASH Verified 05/20/20 14:25 Antibiotics) amoxicillin [From Augmentin] AdvReac Diarrhea Verified 08/10/24 13:15 clavulanic acid AdvReac Diarrhea Verified 08/10/24 13:15 [From Augmentin] Consultations 08/10/24 10:48 ED Decision to Admit Stat 08/10/24 12:15 Consult Cardiac Rehabilitation Routine 08/10/24 12:32 Consult Aviation Program Manager Routine 08/10/24 13:53 Consult Cardiology Routine Procedures Performed Operation Date: 08/10/24 11:00 Actual Procedures p Cineradiography w/Routine Exam - Ander Salgado MD, PhD p Aspiration/PCI w/ENIO for Stemi - Ander Salgado MD, PhD s Drug Eluting Stent SGl Vessel - Ander Salgado MD, PhD Ordered Studies 08/10/24 11:00 CL Cath Imgs for PACS use only Stat Hospital Course (1) STEMI (ST elevation myocardial infarction): (2) CKD (chronic kidney disease), stage III: (3) Hypomagnesemia: (4) Elevated LFTs: (5) Diabetes mellitus, type II: (6) Hypertension: (7) Dyslipidemia: (8) Depression: 84-year-old female with PMH HTN, dyslipidemia, DM II, CKD III, depression, anxiety, neuropathy, who had presented to ER 08/10 with complaint of 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 She was managed for the following: STEMI Admitting EKG consistent with STEMI and heart alert was called. Initial HS troponin: 3899. In ER was given 324 mg aspirin, Brilinta 180 mg and started on IV heparin. She was taken to cardiac oil laboratory analyst LDL 113, A1c 6.7 Post cath ECHO 08/11 - ECHO EF 30-35%, New segmental wall motion abnormalities involving the RCA and LAD territory myocardium, small apical thrombus noted. S/P ENIO to RCA and LAD c/w DAPT, Metoprolol, statin. Cardio on board, DC valsartan/ HCTZ, entresto added 08/11. jardiance and aldactone added 08/13. Patient with prior history of statin intolerance. tolerating well here. Left ventricular apical thrombus: Noted in ECHO, Patient started on Eliquis. continue. CKD III: about baseline, Monitor renal functions Elevated LFTs: Likely 2/2 congestive hepatopathy iso vol overload 2/2 stemi. LFT trend improved Hypomagnesium: Admitting magnesium of 1.5, monitor and replete. Other chronic medical conditions: Continue with/resume home meds as and when able T2DM: A1c of 6.7 this admission. Sliding scale insulin while inpatient. HTN: Patient's cardiac medications being optimized, see above. HLD: Statin has been started. Anxiety, depression: Continue home venlafaxine CODE STATUS: Wants CPR, defibrillation, medications but does not want intubation or ventilator. PT/OT, CM to assist with DC planning. Discussed with cardiology, okay to discharge from their point of view. Patient is impatient to go home today. Patient is being discharged with following instructions at the point of discharge: Follow-up with your primary care physician within a week time and likely you will need labs CBC/CMP/magnesium/phosphorus. Follow-up with your cardiology in about 2 weeks time upon discharge. You were diagnosed with heart attack and blood clot in the heart while in hospital. You will benefit from going to cardiac rehab upon discharge. Coordinate with your PCP office or cardiology office to set up the referral. You were noted to have elevated liver enzymes likely secondary to fluid backup, follow-up on the liver enzyme levels in about a week time at her PCP office to ensure resolution. Take your cardiac medications as prescribed, do not interrupt the medications without consulting with your cardiology. Take your medications as prescribed. Please make sure that you are able to get your medications today by calling your pharmacy before you leave the hospital so that your treatment continuity is not broken. Home Health Attestation I certify that this patient is under my care and that I, or a physicians education administrative assistant working with me, had a face to-face encounter that meets the home health [id number] encounter requirements with this patient. The encounter with the patient was in whole, or in part, for the following medical condition, which is the primary reason for home health care (list medical condition): chest pain- STEMI I certify that, based on my findings, the following services are medically necessary home health services: My clinical findings support the need for the above services because: OT Assess ADL Status and Restore Function w ADLs PT Assessment for Endurance / Balance / Strength PT Eval for Safety and Mobility PT Eval for Safety, Gait Training, Assistive Devices PT Gait and Balance Training, Strengthening and Safety Skilled Nsg Assessment Skilled Nsg Instruction New Medications Further, I certify that my clinical findings support that this patient is homebound (i.e. absences from home require considerable and taxing effort and are for medical reasons or islam services or infrequently or of short duration when for other reasons) because: Transportation Assistance/Unable to Leave Home Unassisted Certification for Home Health Services: Based on the above findings, I certify that this patient is confined to the home and needs intermittent usp care, physical therapy and/or speech therapy or continues to need occupational therapy. The patient is under my care, and I have initiated the establishment of the plan of care. This patient will be followed by a physician who will periodically review the plan of care. Total Time Total Time Spent Total Time Spent (In Minutes): 35 Discharge Plan Discharge Items Patient Disposition: Home - Home Health Services Reason For Visit: CHEST PAIN, GLANDS Discharge Diagnosis: STEMI Left ventricular apical thrombus Activity: Resume your previous activity Non-emergency contact: Primary Care Provider Call non-emergency contact if: you have any medication questions Follow-up/Referrals: Guanakito Burgos MD [Primary Care Provider] - (Date & Time 08/18/2024 11:00 AM Provider: Kodi Galvez PA-C [facility], [facility] ) Diet: Heart Healthy [place] Attending Provider Instructions: Follow-up with your primary care physician within a week time and likely you will need labs CBC/CMP/magnesium/phosphorus. Follow-up with your cardiology in about 2 weeks time upon discharge. You were diagnosed with heart attack and blood clot in the heart while in hospital. You will benefit from going to cardiac rehab upon discharge. Coordinate with your PCP office or cardiology office to set up the referral. You were noted to have elevated liver enzymes likely secondary to fluid backup, follow-up on the liver enzyme levels in about a week time at her PCP office to ensure resolution. Take your cardiac medications as prescribed, do not interrupt the medications without consulting with your cardiology. Take your medications as prescribed. Please make sure that you are able to get your medications today by calling your pharmacy before you leave the hospital so that your treatment continuity is not broken. Addtl Engine Builder Provider Instructions: Home Care: * Take your medications exactly as directed. Don't skip doses. * Remember that recovery after a heart attack takes time. Plan to rest for at lease 4-8 weeks while you recover. Then return to normal activity when your doctor says it's okay. * Ask your doctor about joining a heart rehabilitation program. * Tell your doctor if you are feeling depressed. Feelings of sadness are common after a heart attack, but it is important that you speak to someone if you are feeling overwhelmed by these feelings. * If you are having chest pain, call 911 for an ambulance. Do NOT drive yourself to the hospital. * Ask your family members to learn CPR. * Learn to take your own blood pressure and pulse. Keep a record of your results. Ask your doctor when you should seek emergency medical attention. He or she will tell you which blood pressure reading is dangerous. Lifestyle Changes: * Maintain a healthy weight. Get help to lose any extra pounds. * Cut back on salt. * Limit canned, dried, packaged, and fast foods. * Don't add salt to your food. * Season foods with herbs instead of salt when you cook. * Break the smoking habit. Enroll in a stop-smoking program to improve your chances of success. * Limit fatty foods. * Ask your doctor about having your lipid levels checked regularly. * Build up your activity according to your doctor's recommendation. * Ask your doctor when it's okay to resume sexual activity. * Tell your doctor about any erectile dysfunction (ED) medication you are taking. Some ED medications are not safe if you take certain heart medications. * Try to manage stress. Follow Up: It is important for you to keep your follow up appointments with your medical provider. Pending Studies at Discharge: No Stand-Alone Forms: [facility], Smoking Cessation Medications and DC Order Prescriptions: New Eliquis 2.5 mg Tablet 2.5 mg PO 0900,2200 Qty: 60 0RF Brilinta 90 mg Tablet 90 mg PO BID Qty: 60 0RF atorvastatin 40 mg Tablet 40 mg PO QAM Qty: 30 0RF metoprolol succinate 25 mg Tablet Extended Release 24 Hr 25 mg PO BID Qty: 60 0RF spironolactone 25 mg Tablet 25 mg PO QAM Qty: 30 0RF Entresto 24-26 mg Tablet 1 tab PO BID Qty: 60 0RF Jardiance 10 mg Tablet 10 mg PO DAILY Qty: 30 0RF Continued Multiple Vitamin-Minerals Tablet 1 tab PO QAM gabapentin 100 mg capsule 200 mg PO HS venlafaxine [Effexor XR] 150 mg capsule,extended release 24hr 150 mg PO DAILY metformin 500 mg tablet extended release 24 hr 1,000 mg PO DAILY Discontinued valsartan-hydrochlorothiazide 160-12.5 mg Tablet 1 tab PO QAM Discharge Orders: Discharge Order- CHF (Routine); Ordered 08/14/24 Ordered By: Nina Gutiérrez/Other Patient Handouts: Managing Type 2 Diabetes Admission Data Admit Date/Time: 08/10/24 12:32 Attending Provider: Nina De Leon Admit Provider: Fransisco Chaney Primary Care Provider: Guanakito Burgos Other Providers: Fransisco Chaney; Donald Burks; Brian Whitaker; [facility] Fax
[2024-08-14 13:55] VITALS: PULSE 84
--- NOTE | 2024-08-16 08:35 | Coding Query ---
CODING QUERY To promote full compliance with coding requirements relating to patient care, provider participation is requested in all cases of agile project manager uncertainty. Please assist us with the question(s) below: Coding Question(s): The patient is noted to have a left ventricular apical thrombus. Can you please clarify the origin of this by placing an x in the parenthesis below? Left ventricular apical thrombus as a complication of STEMI (x ) Left ventricular apical thrombus unrelated to STEMI ( ) Physician's Response(s): Thank you Gia Martinez Principal Diagnosis: "that condition established after study, to be chiefly responsible for occasioning the admission of the patient to the hospital for care." Co-Existing Principal Diagnosis: "when two or more diagnoses equally meet the criteria for principal diagnosis as determined by the circumstances of admission, diagnostic work up, and/or therapy provided, and the Alphabetic Index, Tabular List, or another coding guideline does not provide sequencing direction, any one of the diagnoses may be sequenced first." "When the physician has documented what appears to be a current diagnosis in the body of the record, but has not included the diagnosis in the final diagnostic statement, the physician should be asked whether the diagnosis should be added." (Source [facility]oding [facility] 2 QTR90. p3-4) LUZ
== END 2024-08-14 16:36 | disposition home health service (06) | DRG 322 ==
LOC: ED 10:32 → CC 11:00 → 1E 12:32 → SUATTDRO 12:32 → 4W 08-11 19:03